=== PATIENT | female | born 1930 | race Caucasian/White ===

== ENCOUNTER → 2017-03-04 | Day surgery (SDC) | payer OTHER ==
[~2017-03-04] VITALS: Ht 160 cm; Wt 84.0 kg
[~2017-03-04] MED LIST: ACETAMINOPHEN/HYDROcodone 325 MG/5 MG TAB PO PRN; ASPI81TA11 PO; CALC1WAF2 PO; CHLORHEXIDINE GLUCONATE 2 % 1 PACK (2 CLOTHS) TOPICAL PRN; CHLORHEXIDINE GLUCONATE 4% SOLN 120 ML BTL TOPICAL SCH; ENAL10TA PO; FERR200T PO; INSULIN HUMAN REGULAR 1,000 UNITS/10 ML VIAL SQ PRN; KLOR25TA2 PO; LACTATED RINGER'S 1000 ML IV PRN; METOPROLOL TARTRATE 25 MG TAB PO PRN; MULT1TAB46 PO; OMEP40CA2 PO; ONDANSETRON HCL 4 MG/2 ML VIAL IV PRN; OXYBXL10 PO; POVIDONE IODINE 5% (ANTISEPSIS KIT) 4 APPLICATIONS EACH NARE PRN; SERT-132 PO; SIMV10TA PO; SODIUM CHLORID 0.9% 500 ML IV PRN; SODIUM CHLORIDE 0.9% FLUSH 5 ML FLUSH IVF PRN; SODIUM CHLORIDE 0.9% FLUSH 5 ML FLUSH IVF SCH; TRAM50TA PO; VERA180C PO; [UNRECOGNIZED DRUG - CODE] PO; ceFAZolin 2 GM PREMIX 50 ML IV SCH; traMADol HCL 50 MG TAB PO PRN
--- NOTE | 2017-03-04 08:39 | HHI.DS ---
Discharge Summary Admission Date Discharge Date: Mar 04, 2017 Admitting Diagnosis Trigger thumb right Diagnosis: (1) Trigger finger of right thumb ICD Codes: M65.311 - Trigger thumb, right thumb Procedures release trigger thumb right Brief History This is a 86 year old female patient Hospital Course same day surgery Pt Condition on Discharge: Good Discharge Disposition: Discharge Home Discharge Instructions Diet Instructions: As Tolerated, No Restrictions, Heart Healthy Diet Activities You Can Perform: See Additionl Instruction Activities to Avoid: Driving for 24 hrs, Strenuous Activity Baltazar Ureña MD Mar 04, 2017 08:39
[2017-03-04 09:30] VITALS: BP 127/59; PULSE 61; RESP 16; TEMP 98; O2SAT 97
--- NOTE | 2017-03-06 20:51 | MP ---
cc: NEELAM UREÑA DATE OF SURGERY 03/04/2017 PREOPERATIVE DIAGNOSIS Trigger thumb right. POSTOPERATIVE DIAGNOSIS Trigger thumb right. OPERATIVE PROCEDURE Release trigger thumb right. SURGEON Dr. Ureña. ANESTHESIA IV block. TECHNIQUE After induction of IV block anesthesia the right upper extremity thoroughly prepped with Hibiclens and draped in routine fashion. A V-shaped incision was made across the flexion crease of the thumb with the base of the flap radial. Incision deepened through subcutaneous tissue carefully and the Janet ligaments are sectioned under direct vision. Deep dissection carried out with a blunt hemostat exposing the flexor tendon sheath which was then incised thereby releasing the flexor pollicis longus which had a rough surface underneath but did not need any intervention. The thumb was put through range of motion and there was no obstruction. The wound was irrigated with saline solution followed by closure of the skin and subcutaneous tissue in a single layer of interrupted 3-0 nylon sutures. Dressing applied with Xeroform, 4x4s, Carmen and Carlos bandage. The patient transferred to the recovery room in satisfactory condition after release of tourniquet. The patient tolerated the procedure well. TRANSFUSION None. COMPLICATIONS None. POSTOPERATIVE CONDITION Satisfactory. PROGNOSIS Good. MD EDIS Walker/NNEKA /8:40 AM /8:41 PM
== END | disposition home or self-care (01) ==
LOC: PHSDC 06:13
PROVIDERS: ATTEND Orthopaedic Surgery
DX: M65.311 Trigger thumb, right thumb (principal); I10 Essential (primary) hypertension; E78.5 Hyperlipidemia, unspecified; D64.9 Anemia, unspecified; K44.9 Diaphragmatic hernia without obstruction or gangrene; Z85.820 Personal history of malignant melanoma of skin; Z79.82 Long term (current) use of aspirin; Z79.899 Other long term (current) drug therapy
CPT/HCPCS: 01810; 26055; J0690; J7120

== ENCOUNTER 2017-05-06 21:10 | Emergency (ER) | payer OTHER ==
[~2017-05-06] VITALS: Ht 160 cm; Wt 85.0 kg
[~2017-05-06 21:10] MED LIST changes: -ACETAMINOPHEN/HYDROcodone 325 MG/5 MG TAB PO PRN; -ASPI81TA11 PO; +ASPI81TA23 PO; -CHLORHEXIDINE GLUCONATE 2 % 1 PACK (2 CLOTHS) TOPICAL PRN; -CHLORHEXIDINE GLUCONATE 4% SOLN 120 ML BTL TOPICAL SCH; -FERR200T PO; -INSULIN HUMAN REGULAR 1,000 UNITS/10 ML VIAL SQ PRN; -LACTATED RINGER'S 1000 ML IV PRN; -METOPROLOL TARTRATE 25 MG TAB PO PRN; -ONDANSETRON HCL 4 MG/2 ML VIAL IV PRN; -POVIDONE IODINE 5% (ANTISEPSIS KIT) 4 APPLICATIONS EACH NARE PRN; -SODIUM CHLORID 0.9% 500 ML IV PRN; -SODIUM CHLORIDE 0.9% FLUSH 5 ML FLUSH IVF PRN; -SODIUM CHLORIDE 0.9% FLUSH 5 ML FLUSH IVF SCH; -ceFAZolin 2 GM PREMIX 50 ML IV SCH; -traMADol HCL 50 MG TAB PO PRN
[2017-05-06 21:11] VITALS: BP 154/69; PULSE 86; RESP 15; TEMP 98.4; O2SAT 97
--- NOTE | 2017-05-06 22:40 | PD ---
HPI Chief Complaint: Medical Clearance Time Seen by Provider: 22:10 Travel History International Travel<30 days: No Contact w/Intl Traveler<30days: No Traveled to known affect area: No History of Present Illness HPI 86 year-old woman status post left breast biopsy at [place], on Tuesday 4 days ago, who presents with discoloration in the left breast. She called the on -call radiologist who recommended she come in for evaluation. No fevers or chills. No other complaints. History Past Medical History Medical History: Denies Significant Hx Influenza Vaccination: No Dilation and Curettage (D&C): Yes Social History Alcohol Use: No Tobacco Use: No Allergies-Medications (Allergen,Severity, Reaction): Coded Allergies: morphine (Verified Allergy, Severe, Sedation, 05/06/17) propoxyphene (Verified Allergy, Severe, ANAPHYLAXIS, 05/06/17) alprazolam (Verified Allergy, Intermediate, MOOD EFFECT, 05/06/17) clonazepam (Verified Allergy, Intermediate, MOOD EFFECT, 05/06/17) clorazepate dipotassium (Verified Allergy, Intermediate, MOOD EFFECT, ) diazepam (Verified Allergy, Intermediate, MOOD EFFECT, 05/06/17) lorazepam (Verified Allergy, Intermediate, MOOD EFFECT, 05/06/17) midazolam (Verified Allergy, Intermediate, MOOD EFFECT, 05/06/17) oxazepam (Verified Allergy, Intermediate, MOOD EFFECT, 05/06/17) temazepam (Verified Allergy, Intermediate, MOOD EFFECT, 05/06/17) acetaminophen (Verified Allergy, Mild, 05/06/17) brompheniramine (Verified Allergy, Mild, 05/06/17) phenylpropanolamine (Verified Allergy, Mild, 05/06/17) methadone (Verified Adverse Reaction, Severe, MUSCLE LEIGH, 05/06/17) Uncoded Allergies: OPIOIDS (Allergy, Intermediate, MOOD EFFECT, 09/17/14) Reported Meds & Prescriptions Reported Meds & Active Scripts Active Tramadol (Tramadol HCl) 50 Mg Tab 50 Mg PO Q6H PRN 5 Days Reported Tramadol (Tramadol HCl) 50 Mg Tab 50 Mg PO BID PRN Calcium Citrate/Mag... 250-125-200 mg-mg-Unit (Calcium-Magnesium W/ Vitamin D) 1 Waf Waf PO DAILY Enalapril (Enalapril Maleate) 10 Mg Tab 10 Mg PO DAILY Ginseng (Panax Ginseng Root Extract) 100 Mg Capsule PO DAILY Multi Vitamin Daily (Multiple Vitamin) 1 Tab Tab PO DAILY Omeprazole 40 Mg Cap 40 Mg PO DAILY Ditropan XL 24 HR (Oxybutynin Chloride) 10 Mg Tab 10 Mg PO DAILY Klor-Con EF (Potassium Bicarbonate) 25 Meq Tab 25 Meq PO DAILY Sertraline (Sertraline HCl) 50 Mg Tab 50 Mg PO DAILY Simvastatin 10 Mg Tab 10 Mg PO DAILY Verapamil HCl ER (Verapamil HCl) 180 Mg Cap PO DAILY Aspirin EC (Aspirin) 81 Mg Tabdr 81 Mg PO DAILY Review of Systems Except as stated in HPI: all other systems reviewed are Neg Physical Exam Narrative Gen.: Well-appearing 86 year-old woman, no acute distress Breast: Normal symmetric appearance of both breasts. On the right breast in the 10 o'clock position there is ecchymosis and bruising in the bandage. Is a little bit tenderness there. Is no erythema redness. Is no visible swelling. Is no purulent drainage. Data Data Last Documented VS Vital Signs Date Time Temp Pulse Resp B/P (MAP) Pulse Ox O2 Delivery O2 Flow Rate FiO2 05/06/17 21:11 98.4 86 15 154/69 (97) 97 Room Air MDM Medical Decision Making Medical Screen Exam Complete: Yes Emergency Medical Condition: Yes Differential Diagnosis Infection, bruising, other Narrative Course Medical decision making 86 year-old woman with discoloration left breast following biopsy. This is just ecchymosis or bruising. Is no evidence of infection. Biopsy was positive. She's been referred to a breast surgeon. Diagnosis Primary Impression: Bruise of breast Additional Instructions: Follow-up with Dr. Pool. Return to the emergency department for any new or worsening symptoms. Disposition: 01 DISCHARGE HOME Condition: Stable Gomez Lopez MD May 06, 2017 22:40
== END 2017-05-06 23:33 | disposition home or self-care (01) ==
LOC: NEPE 21:10
DX: S20.02XA Contusion of left breast, initial encounter (principal); N64.89 Other specified disorders of breast; Y84.8 Other medical procedures as the cause of abnormal reaction of the patient, or of later complication, without mention of misadventure at the time of the procedure
CPT/HCPCS: 99283

== ENCOUNTER → 2017-06-16 | Day surgery (SDC) | payer OTHER ==
[~2017-06-16] MED LIST changes: +BUPIVACAINE/EPINEPHRINE 0.5% PF 30 ML VIAL ONE; +ISOSULFAN BLUE 50 MG/5 ML VIAL SQ ONE; +LIDOCAINE 1.5%/EPINEPHrine 1:200,000 PF SOLN 30 ML AMP ONE; +ONDANSETRON HCL 4 MG/2 ML VIAL IV PUSH ONE; +PROPOFOL 200 MG/20 ML AMP IV ONE; +ceFAZolin INJ 1,000 MG VIAL ONE
--- NOTE | 2017-06-16 16:26 | TN ---
cc: JOSE CROCKETT M.D., JOSEPH D. M.D. DATE OF SURGERY: 06/16/2017 PREOPERATIVE DIAGNOSIS Left-sided breast cancer left upper outer quadrant. POSTOPERATIVE DIAGNOSIS Left-sided breast cancer left upper outer quadrant. PROCEDURE 1. Needle-localized excisional quadrantectomy left breast upper outer quadrant. 2. Injection of Lymphazurin blue dye for lymphatic mapping identifying sentinel nodes x2. 3. Ultrasound evaluation of intraoperative radiation device to assure adequate tissue depth 4. Intraoperative radiation 5. Linden node identification of two sentinel nodes. ANESTHESIA General SURGEON Dr. Oneil. AIRCRAFT PNEUDRAULICS REPAIRER: Merry Rae, advanced registered nurse practitioner The PRINT ROOM WORKER was present from beginning to the end of the case assisting in all portions of the procedure. It was necessary to have this individual in the room to assist in the above surgical procedure. The surgical procedure was assisted by the PRINT ROOM WORKER. The PRINT ROOM WORKER presence was necessary throughout the case for appropriate retraction, dissection, visualization, and resection of the important anatomical structures during the surgical procedure. The PRINT ROOM WORKER was assisting throughout the entirety of the operation. The skill set of the PRINT ROOM WORKER is medically and surgically necessary to safely complete the surgical procedure. During the surgical case, the operating room surgical scrub technician was working instrument table and passing instruments to the attending surgeon and PRINT ROOM WORKER. The PRINT ROOM WORKER was directly assisting the operating surgeon and involved in the technical aspects of the surgical case. RADIATION THERAPIST: Dr. Bucky Crockett INDICATIONS This is a pleasant 87-year-old female who was found to have a left-sided breast cancer. She is an excellent candidate for intraoperative radiation therapy. Plans were made for above. PROCEDURE The patient and placed in the position after placing her under anesthesia, time-out was done we inject Lymphazurin blue dye at the needle track isaias that is in the area of the left breast in the upper outer quadrant, it is coursing somewhat medial, from medial to lateral and a slightly anterior-posterior direction and somewhat parallel in the horizontal plane. After the lymphatic mapping with Lymphazurin blue dye, we do see a hot spot in the axillary region from the lymphoscintigraphy. We then prepped and draped with Betadine. A curvilinear incision made the axillary region where two hot spots were identified, ex vivo count of the first lymph node, that does not have any blue in it with an ex vivo count of 1,184 and a larger sentinel node that is deep and somewhat posterior with an ex vivo count of eight. No other lymphadenopathy is noted. No other hot spots were noted. We then closed the deep layer of 3-0 Vicryl. Skin is closed with a 4-0 Vicryl. We then direct our attention to left breast where the needle track isaias. The making elliptical incision overlying the needle track isaias as there is some skin necrosis from a previous radiologic biopsy. We dissected circumferentially around the guidewire essentially doing a quadrantectomy in the upper outer quadrant. The specimen is then marked superiorly with short stitch and a long stitch placed laterally. This is sent down to radiology Dr. Lowry states the area in question appears to be removed. No other gross abnormalities or masses are appreciated. The medial edge of the a lumpectomy of quadrantectomy cavity is then reapproximated. We then sized the radiation device. We elect the three half size, as this fits snugly in the placed after pursestring. We checked our tissue margins with intraoperative ultrasound. The superior margin, medial margin, lateral margin, inferior marginal, all of which are in adequate tissue depth. After testing with intraoperative ultrasound the radiation device is removed, connected to the radiation source and draped and then gently placed into the quadrantectomy site. Pursestring sutures secured down. We reevaluate the tissue depth circumferentially with the ultrasound device superior margin and inferior margin lateral margin of medial margin all have adequate tissue depth of greater than a centimeter. We then placed a wet lap around the skin at the entrance site and placed the led drape to make a cone. Dr. Crockett preformed 17 minutes of intraoperative radiation therapy. After the radiation is complete the device is removed and she irrigated. There is excellent hemostasis. We then close the skin with a 4-0 Vicryl. Steri-Strips applied. Sterile bandage applied, and post the wound, the breast and the axillary region. The patient tolerated the procedure well. Had no immediate postoperative complications. MD DAMON Aquino/patricia /3:40 PM /4:10 PM ANNEL
== END | disposition home or self-care (01) ==
LOC: ESDC 09:17
PROVIDERS: ATTEND Surgery
DX: C50.412 Malignant neoplasm of upper-outer quadrant of left female breast (principal)
CPT/HCPCS: 00400; 01610; 19125; 38525; 38792; 77290; 77300; 77334; 77370; 77424; 88307; J0690; J2405; J3010; Q9968; 77469

== ENCOUNTER → 2017-06-28 | Day surgery (SDC) | payer OTHER ==
[~2017-06-28] MED LIST changes: +ACETAMINOPHEN 1000 MG/100 ML 100 ML IV ONE; -ISOSULFAN BLUE 50 MG/5 ML VIAL SQ ONE; +LACTATED RINGER'S 1000 ML INJ 1,000 ML ONE; +LIDOCAINE 1%/EPINEPHrine 1:100,000 SOLN 30 ML VIAL ONE; -LIDOCAINE 1.5%/EPINEPHrine 1:200,000 PF SOLN 30 ML AMP ONE; -ONDANSETRON HCL 4 MG/2 ML VIAL IV PUSH ONE
--- NOTE | 2017-06-28 13:33 | TN ---
cc: CHRIS ONEIL,JOSE Colon M.D. DATE OF SURGERY: 06/28/2017 PREOPERATIVE DIAGNOSIS Breast cancer left breast with unclear margin lateral margin left breast. Left axillary seroma. POSTOPERATIVE DIAGNOSIS Breast cancer left breast with unclear margin lateral margin left breast. Aspiration left axillary seroma. PROCEDURE Re-excision of lateral margin from previous lumpectomy. ANESTHESIA TIVA SURGEON: Chris Oneil MD. INDICATIONS This is a pleasant female who had left-sided breast cancer. She underwent breast conservation with the intraoperative radiation therapy. Unfortunately a lateral margin had a little DCIS of the edge for this reason re-excision was planned. PROCEDURE The patient was taken to the operating room placed on operating room table after anesthesia her left breast is prepped with Betadine. Axillary region as well. After prepping and draping and time-out done. We attempted to aspirate the seroma in the left axillary region, but it is too thick, nothing comes out. It is not too big in size, I suspect it will resolve. We then directed our attention to the previous lumpectomy anesthetizing the preservative-free anesthetic and make an incision reopening the previous incision. Dissected down to the biopsy cavity which is evacuated of seroma and a hematoma. The lateral margin of the previous biopsy cavity is then grasped with the Allis clamps. We resected the entirety from the superior aspect of the lateral margin, to the inferior and posterior anterior of the lateral margin. This is removed marked accordingly with the short stitch placed superior and a long stitch placed lateral to this lateral specimen margin from the previous lumpectomy done. This was sent down for pathological analysis. We then irrigate, hemostasis assured. We then simply close the skin with 4-0 Vicryl. Steri-Strips applied. Sterile bandage applied. The patient did well and no immediate postop complications. Chris Oneil MD JLEONARD/patricia /12:45 PM /12:53 PM
== END | disposition home or self-care (01) ==
LOC: ESDC 08:57
PROVIDERS: ATTEND Surgery
DX: D05.12 Intraductal carcinoma in situ of left breast (principal); L76.34 Postprocedural seroma of skin and subcutaneous tissue following other procedure
CPT/HCPCS: 00400; 10140; 19301; 88307; J0131; J0690; J7120; 88305

== ENCOUNTER 2017-11-16 19:11 | Emergency (ER) | payer OTHER ==
[~2017-11-16 19:11] MED LIST changes: -ACETAMINOPHEN 1000 MG/100 ML 100 ML IV ONE; -BUPIVACAINE/EPINEPHRINE 0.5% PF 30 ML VIAL ONE; -LACTATED RINGER'S 1000 ML INJ 1,000 ML ONE; -LIDOCAINE 1%/EPINEPHrine 1:100,000 SOLN 30 ML VIAL ONE; -PROPOFOL 200 MG/20 ML AMP IV ONE; -ceFAZolin INJ 1,000 MG VIAL ONE
[2017-11-16 19:20] VITALS: BP 122/60; PULSE 80; RESP 20; TEMP 98.3; O2SAT 93
[2017-11-16] MEDS ORDERED: TETANUS/DIPHTHERIA TOXOID ADULT 0.5 ML VIAL IM ONE (19:45)
[2017-11-16] MEDS ORDERED: ANAS1TAB PO (19:48)
[2017-11-16] MEDS ORDERED: FURO40TA PO (19:49)
--- NOTE | 2017-11-16 19:50 | PD ---
HPI Chief Complaint: Laceration/Skin Injury Time Seen by Provider: 19:32 Travel History International Travel<30 days: No Contact w/Intl Traveler<30days: No Traveled to known affect area: No History of Present Illness HPI 87-year-old female presents emergency department for evaluation of a wound to the top of her right foot. Patient states that she was using a kitchen alexa when she accidentally dropped them landing on her foot. Says that she is here today because she is concerned about the bleeding. Says that she has mild pain directly over the area but denies any significant pain elsewhere. Says her pain is worse with palpation. She does not believe she broke her foot. Says she is on chemo medications for her breast cancer thinks this may be the reason for her excessive bleeding. Denies use of blood thinners. She denies any numbness tingling of the foot. Patient was able to ambulate in the emergency department today. She has no other complaints today. 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 ) Cardiovascular Problems: Yes (Murmur) High Cholesterol: Yes Diabetes: No Diminished Hearing: Yes (RADHA HEARING AIDES) Endocrine: No Gastrointestinal Disorders: No GERD: Yes Genitourinary: No Hepatitis: No Hiatal Hernia: Yes Hypertension: Yes Immune Disorder: No Musculoskeletal: No Neurologic: No Psychiatric: No Reproductive: No Respiratory: No Renal Failure: Yes (STAGE 3 KIDNEY DISEASE ) Thyroid Disease: No Tetanus Vaccination: Unknown Influenza Vaccination: Yes Dilation and Curettage (D&C): Yes Past Surgical History Abdominal Surgery: Yes (COLON SX, PARTIAL COLECTOMY) AICD: No Eye Surgery: Yes (BILATERAL CATARACTS ) Genitourinary Surgery: Yes (urethral sling) Gynecologic Surgery: Yes (Left partial mastectomy with lumpectomy ) Joint Replacement: No Oral Surgery: Yes (T AND A) Pacemaker: No Tonsillectomy: Yes Other Surgery: Yes (hemorrhoidectomy, carotid endarterectomy, LEFT BREAST BIOPSY, BASAL CELL SX) Social History Alcohol Use: No Tobacco Use: No Substance Use: No Allergies-Medications (Allergen,Severity, Reaction): Coded Allergies: morphine (Verified Allergy, Severe, Sedation, 11/16/17) propoxyphene (Verified Allergy, Severe, ANAPHYLAXIS, 11/16/17) alprazolam (Verified Allergy, Intermediate, MOOD EFFECT, 11/16/17) clonazepam (Verified Allergy, Intermediate, MOOD EFFECT, 11/16/17) clorazepate dipotassium (Verified Allergy, Intermediate, MOOD EFFECT, ) diazepam (Verified Allergy, Intermediate, MOOD EFFECT, 11/16/17) lorazepam (Verified Allergy, Intermediate, MOOD EFFECT, 11/16/17) midazolam (Verified Allergy, Intermediate, MOOD EFFECT, 11/16/17) oxazepam (Verified Allergy, Intermediate, MOOD EFFECT, 11/16/17) temazepam (Verified Allergy, Intermediate, MOOD EFFECT, 11/16/17) acetaminophen (Verified Allergy, Mild, 11/16/17) brompheniramine (Verified Allergy, Mild, 11/16/17) phenylpropanolamine (Verified Allergy, Mild, 11/16/17) methadone (Verified Adverse Reaction, Severe, MUSCLE LEIGH, 11/16/17) Uncoded Allergies: OPIOIDS (Allergy, Intermediate, MOOD EFFECT, 09/17/14) Reported Meds & Prescriptions Reported Meds & Active Scripts Active Reported Calcium 600 + Vit D Tablet (Calcium Carbonate/Vitamin D3) 250 Mg Calcium (600 Mg )-125 Unit Tablet 1 Tab PO DAILY Probiotic (Lactobacillus Acidophilus) 10 Billion Cell Cap 1 Cap PO DAILY Potassium Chloride ER (Potassium Chloride) 10 Meq Cap 10 Meq PO DAILY Furosemide 40 Mg Tab 40 Mg PO DAILY Enalapril (Enalapril Maleate) 10 Mg Tab 10 Mg PO DAILY Multi Vitamin Daily (Multiple Vitamin) 1 Tab Tab PO DAILY Omeprazole 40 Mg Cap 20 Mg PO DAILY Ditropan XL 24 HR (Oxybutynin Chloride) 10 Mg Tab 5 Mg PO BID Simvastatin 10 Mg Tab 10 Mg PO DAILY Verapamil HCl ER (Verapamil HCl) 180 Mg Cap PO DAILY Aspirin EC (Aspirin) 81 Mg Tabdr 81 Mg PO DAILY Review of Systems Except as stated in HPI: all other systems reviewed are Neg Physical Exam Narrative GENERAL: Well-developed, well-nourished in no apparent distress. SKIN: Focused skin assessment warm/dry. HEAD: Atraumatic. Normocephalic. EYES: Pupils equal and round. No scleral icterus. No injection or drainage. ENT: No nasal bleeding or discharge. Mucous membranes pink and moist. NECK: Trachea midline. No JVD. CARDIOVASCULAR: Regular rate and rhythm. No murmur appreciated. RESPIRATORY: No accessory muscle use. Clear to auscultation. Breath sounds equal bilaterally. GASTROINTESTINAL: Abdomen soft, non-tender, nondistended. Hepatic and splenic margins not palpable. MUSCULOSKELETAL: No obvious deformities. No clubbing. No cyanosis. No edema. NEUROLOGICAL: Awake and alert. No obvious cranial nerve deficits. Motor grossly within normal limits. Normal speech. PSYCHIATRIC: Appropriate mood and affect; insight and judgment normal. Data Data Last Documented VS Vital Signs Date Time Temp Pulse Resp B/P (MAP) Pulse Ox O2 Delivery O2 Flow Rate FiO2 11/16/17 19:20 98.3 80 20 122/60 (80) 93 Orders Orders Tetanus/Diphtheria Tox Adult (Tetanus/Di (11/16/17 19:45) Ed Discharge Order (11/16/17 19:58) MDM Medical Decision Making Medical Screen Exam Complete: Yes Emergency Medical Condition: Yes Differential Diagnosis Right foot laceration, avulsion, abrasion Narrative Course 87-year-old female presents emergency department for evaluation of a wound to the right dorsal aspect of the foot after dropping kitchen alexa on her foot just prior to arrival. Vital signs are stable. Upon evaluation of the foot, she is tender directly over the laceration however , there is no active bleeding present. There is no tenderness to palpation to the lateral aspects of the metatarsals. Neurovascularly intact. Cleanse the site and explored for depth. This is a very superficial laceration not requiring repair. Wound care administered. Tetanus administered. Patient will be discharged and advised follow-up with a primary care physician. Advised on wound care. Diagnosis Primary Impression: Laceration of foot Qualified Codes: S91.311A - Laceration without foreign body, right foot, initial encounter Referrals: Primary Care Physician Additional Instructions: Follow up with your primary care physician within 2-3 days. Keep area clean and dry for 24 hours. After 24 hrs, you may bathe as normal but dry the area thoroughly. You may use [id number] triple antibiotic ointments for your injury daily. Change top dressings daily. You may leave the yellow gauze on for up to 5-7 days. You may allow this to fall off on its own. If bleeding starts, apply pressure and elevate the area. If you developed increased redness, swelling, or pain return to the emergency department as this could be a sign of infection. Disposition: 01 DISCHARGE HOME Condition: Stable Shanique Padilla November 16, 2017 19:50
[2017-11-16] MEDS ORDERED: POTA10CA PO (19:53)
[2017-11-16] MEDS ORDERED: LACTCAP8 PO (19:55)
[2017-11-16] MEDS ORDERED: CALC600T64 PO (19:56)
== END 2017-11-16 20:27 | disposition home or self-care (01) ==
LOC: PHEFT 19:11
DX: S91.311A Laceration without foreign body, right foot, initial encounter (principal); C50.919 Malignant neoplasm of unspecified site of unspecified female breast; D64.9 Anemia, unspecified; I10 Essential (primary) hypertension; K21.9 Gastro-esophageal reflux disease without esophagitis; F32.9 Major depressive disorder, single episode, unspecified; E78.00 Pure hypercholesterolemia, unspecified; Z23 Encounter for immunization; W27.2XXA Contact with scissors, initial encounter
CPT/HCPCS: 90471; 90714

== ENCOUNTER 2018-02-12 17:47 | Inpatient (IN) ==
[2018-02-12] MEDS ORDERED: Morphine Inj 4 MG/ML Vial IV.PUSH ONE (18:02)
--- NOTE | 2018-02-12 18:27 | XR ---
EXAM DATE: 02/12/2018 6:24 PM EDT AGE/SEX: 87 years / Female INDICATIONS: Evaluate for pneumonia, pneumothorax, or communicable disease. Pre op hip surgery post fall. CLINICAL DATA: This is the patient's initial encounter. Patient reports that signs and symptoms have been present for 1 day and indicates a pain score of 0/10. MEDICAL/SURGICAL HISTORY: None. None. COMPARISON: [facility], CHEST SINGLE AP, 09/17/2014. . FINDINGS: A single AP view of the chest demonstrates the lungs to be symmetrically aerated without evidence of mass, infiltrate or effusion. The cardiomediastinal contours are unremarkable. Osseous structures a re intact. CONCLUSION: No acute cardiopulmonary disease demonstrated. Electronically signed by: Pa Venegas MD 02/12/2018 6:26 PM EDT
--- NOTE | 2018-02-12 18:35 | XR ---
EXAM DATE: 02/12/2018 6:23 PM EDT AGE/SEX: 87 years / Female INDICATIONS: Left hip pain after fall. CLINICAL DATA: This is the patient's initial encounter. Patient reports that signs and symptoms have been present for 1 day and indicates a pain score of 10/10. MEDICAL/SURGICAL HISTORY: None. None. COMPARISON: No prior exams available for comparison. FINDINGS: There is an acute intertrochanteric fracture of the left femur with medial angulation deformity. Ther e is a 2.0 x 4.6 cm comminuted fracture fragment off of the lesser trochanter with medial displacemen t. Femoral head intact. No subluxation. CONCLUSION: Comminuted intertrochanteric fracture of the left femur. Electronically signed by: Pa Venegas MD 02/12/2018 6:33 PM EDT
[2018-02-12 18:51] LABS: Baso # (Auto) 0.1 th/mm3 (0.0-0.2); Baso % (Auto) 0.6 % (0.0-2.0); Eos # (Auto) 0.3 th/mm3 (0.0-0.4); Eos % (Auto) 2.8 % (0.0-4.0); Hematocrit 38.8 % (35.0-46.0); Hemoglobin 13.6 gm/dL (11.6-15.3); Lymph # (Auto) 2.6 th/mm3 (1.0-4.8); Lymph % (Auto) 26.3 % (9.0-44.0); Mean Corpuscular HGB Conc 35.2 % (32.0-36.0); Mean Corpuscular Hemoglobin 30.4 pg (27.0-34.0); Mean Corpuscular Volume 86.4 fL (80.0-100.0); Neut # (Auto) 5.9 th/mm3 (1.8-7.7); Neut % (Auto) 60.3 % (16.0-70.0); Platelet Count 295 th/mm3 (150-450); Red Blood Count 4.49 mil/mm3 (4.00-5.30); White Blood Count 9.8 th/mm3 (4.0-11.0)
[2018-02-12 19:00] LABS: Activated Partial Thrombo Time 24.5 sec (24.3-30.1); Prothrombin Time 9.9 sec (9.8-11.6)
[2018-02-12] MEDS ORDERED: Morphine Sulfate Inj 2 MG/ML Vial IV.PUSH PRN (19:01)
[2018-02-12 19:12] LABS: Alanine Aminotransferase 13 U/L (10-53); Alkaline Phosphatase 103 U/L (45-117); Total Protein 7.3 g/dL (6.4-8.2)
--- NOTE | 2018-02-12 19:16 | P.HPIM ---
History of Present Illness Primary Care Physician: Do Arjun Crockett History of Present Illness: Mrs. Li is an 87-year-old female who is admitted secondary to left hip fracture. She reports that she was walking around the house and tripped over something and fell. At baseline she has a previous fall 6 months ago. She has a past history of fall with right wrist fracture several years ago. Her baseline functioning is relatively stable ambulation, functional enough to have gardening as a hobby. When seen her pain is controlled. Other medical conditions are hypertension, gastroesophageal reflux disease, and a past history of breast cancer. She recently underwent a colonoscopy 4 days ago. She did not have any complications with anesthesia during her colonoscopy. Dr. Ureña (orthopedic surgeon) did surgery on her right wrist fracture and she requests him as an orthopedic surgeon consult. No other complaints at this time. Inpatient Certification: I certify that the inpatient services were ordered in accordance with Medicare regulations governing the order. This includes certification that hospital inpatient services are reasonable and necessary and in the case of services not specified as inpatient-only under 42 CFR 419.22(n), that they are appropriately provided as inpatient services in accordance to with the 2-midnight benchmark under 43 CFR 412.3(e) Estimated Total Length of Stay (Days): 3 Plans for Post Hospital Care: SNF Review of Systems Constitutional: Denies fever(s), Denies malaise, Denies night sweats, Denies weakness Eyes: Denies blind spots, Denies blurry vision, Denies change in vision Ears, Nose, Mouth, and Throat: Denies abnormal hearing, Denies bleeding gums, Denies change in voice Cardiovascular: Denies chest pain, Denies chest pain at rest, Denies chest pain with activity Respiratory: Denies cough, Denies shortness of breath, Denies wheezing Gastrointestinal: Denies abdominal pain, Denies black, tarry stools, Denies bloating, Denies bright, red blood in stools Musculoskeletal: Reports abnormal walking, Reports joint pain, Reports limited joint movement, Denies back pain, Denies body aches Skin/Breast: Denies rash, Denies skin pain, Denies skin ulcer Neurologic: Denies abnormal hearing, Denies abnormal movements, Denies abnormal speech PMFSH - History History Provided By: Patient, Clinical Specialist Vascular / EMT - Medical History Medical History: Medical History (Last Updated 02/12/18 @ 18:18 by Jeanie Hameed) CKD (chronic kidney disease), stage III Carpal tunnel syndrome of right wrist Cataract - Surgical History Surgical History: Surgical History (Last Updated 02/12/18 @ 18:18 by Jeanie Hameed) History of colon surgery History of colonoscopy History of hemorrhoidectomy History of lumpectomy History of partial colectomy History of partial mastectomy of left breast History of right-sided carotid endarterectomy - Family History Family History: Family History (Last Updated 02/12/18 @ 19:06 by Ty Lucas MD) Daughter Breast cancer - Tobacco History Second Hand Smoke Exposure: No Smoking Status: Former smoker - Alcohol History How Often Do You Have a Drink Containing Alcohol: Never - Substance Use History Substance History: No History of Abuse - Travel History Recent Travel in the [place] Within the Last 8 Weeks: No Recent Travel Out of the Country Within the Last 8 Weeks: No - Immunization History Tetanus Immunization: <5 Years Hx Influenza Vaccine This Season: Yes Medications and Allergies Active Medications: Active Medications Sodium Chloride (1/2 Normal Saline Inj) 1,000 mls @ 75 mls/hr IV.CONT .[id number] CARIDAD Morphine Sulfate (Morphine Inj) 2 mg IV.PUSH Q4H PRN PRN Reason: Pain 3 to 6 Morphine Sulfate (Morphine Inj) 4 mg IV.PUSH Q4H PRN PRN Reason: Pain 7 to 10 Ondansetron HCl (Zofran Inj) 4 mg IV.PUSH Q6H PRN PRN Reason: NAUSEA OR VOMITING Sodium Chloride (Ns Flush) 2 ml IV.FLUSH UNSCH PRN PRN Reason: FLUSH AFTER USING IV ACCESS Allergies Allergy/AdvReac Type Severity Reaction Status Date / Time morphine Allergy Severe Sedation Verified 11/16/17 19:22 propoxyphene Allergy Severe ANAPHYLAXIS Verified 11/16/17 19:22 alprazolam Allergy Intermediate MOOD EFFECT Verified 11/16/17 19:22 clonazepam Allergy Intermediate MOOD EFFECT Verified 11/16/17 19:22 clorazepate dipotassium Allergy Intermediate MOOD EFFECT Verified 11/16/17 19:22 diazepam Allergy Intermediate MOOD EFFECT Verified 11/16/17 19:22 lorazepam Allergy Intermediate MOOD EFFECT Verified 11/16/17 19:22 midazolam Allergy Intermediate MOOD EFFECT Verified 11/16/17 19:22 oxazepam Allergy Intermediate MOOD EFFECT Verified 11/16/17 19:22 temazepam Allergy Intermediate MOOD EFFECT Verified 11/16/17 19:22 acetaminophen Allergy Mild Verified 11/16/17 19:22 brompheniramine Allergy Mild Verified 11/16/17 19:22 phenylpropanolamine Allergy Mild Verified 11/16/17 19:22 methadone AdvReac Severe MUSCLE Verified 11/16/17 19:22 LEIGH OPIOIDS Allergy Intermediate MOOD EFFECT Uncoded 09/17/14 12:23 Home Medications Medication Instructions Recorded Confirmed Type aspirin 81 mg PO DAILY 02/12/18 02/12/18 History calcium carbonate-vitamin D3 1 tab PO BID 02/12/18 02/12/18 History [Calcium 600 + D(3)] enalapril maleate 10 mg PO DAILY 02/12/18 02/12/18 History furosemide [Lasix] 40 mg PO DAILY 02/12/18 02/12/18 History qggwcivs-fmj-VL-lycopen-lutein 1 tab PO DAILY 02/12/18 02/12/18 History [Centrum Silver] omeprazole 40 mg PO DAILY 02/12/18 02/12/18 History potassium chloride 10 meq PO DAILY 02/12/18 02/12/18 History psyllium seed (sugar) [Metamucil 1 tbsp PO DIRECTED 02/12/18 02/12/18 History (sugar)] verapamil 180 mg PO DAILY 02/12/18 02/12/18 History Exam Vital signs: Vital Signs 02/12/18 18:00 02/12/18 18:10 02/12/18 18:22 Temperature 98.6 F 98.6 F Pulse Rate 73 73 73 Respiratory Rate 18 18 Blood Pressure 136/71 136/71 Pulse Oximetry 95 95 02/12/18 18:39 Temperature Pulse Rate Respiratory Rate Blood Pressure Pulse Oximetry 95 Intake & Output 02/12/18 02/12/18 02/13/18 06:59 18:59 06:59 Weight 82.554 kg Narrative: GENERAL: NAD, A&Ox3 HEAD: Normocephalic. NECK: Supple, trachea midline. No lymphadenopathy. EYES: No scleral icterus. No injection or drainage. CARDIOVASCULAR: Regular rate and rhythm without murmurs, gallops, or rubs. RESPIRATORY: Breath sounds equal bilaterally. No accessory muscle use. GASTROINTESTINAL: Abdomen soft, non-tender, nondistended. MUSCULOSKELETAL: No cyanosis, or edema. Limited range of motion at left hip due to pain. SKIN: Warm and dry. NEURO: No focal neurological deficits. Results - Labs CBC & Chem 7: 02/12/18 18:20 02/12/18 18:20 Labs: Short CBC 02/12/18 Range/Units 18:20 WBC 9.8 (4.0-11.0) th/mm3 Hgb 13.6 (11.6-15.3) gm/dL Hct 38.8 (35.0-46.0) % Plt Count 295 (150-450) th/mm3 - Imaging Impressions Chest X-Ray 02/12/18 18:01 CONCLUSION: No acute cardiopulmonary disease demonstrated. Hip X-Ray 02/12/18 18:01 CONCLUSION: Comminuted intertrochanteric fracture of the left femur. Caprini VTE Risk Assessment Caprini VTE Risk Assessment: Moderate/High Risk (score >= 2) Caprini Risk Assessment Model: Point Value = 1 Point Value = 2 Point Value = 3 Point Value = 5 Age 41-60 Minor surgery BMI > 25 kg/m2 Swollen legs Varicose veins or History of unexplained or recurrent spontaneous Oral contraceptives or hormone replacement Sepsis (< 1 month) Serious lung disease, including pneumonia (< 1 month) Abnormal pulmonary function Acute myocardial infarction Congestive heart failure (< 1 month) History of inflammatory bowel disease Medical patient at bed rest Age 61-74 Arthroscopic surgery Major open surgery (> 45 min) Laparoscopic surgery (> 45 min) Malignancy Confined to bed (> 72 hours) Immobilizing plaster cast Central venous access Age >= 75 History of VTE Family history of VTE Factor V Leiden Prothrombin [id number] Lupus anticoagulant Anticardiolipin antibodies Elevated serum homocysteine Heparin-induced thrombocytopenia Other congenital or acquired thrombophilia Stroke (< 1 month) Elective arthroplasty Hip, pelvis, or leg fracture Acute spinal cord injury (< 1 month) Prophylaxis Regimen: Total Risk Factor Score Risk Level Prophylaxis Regimen 0-1 Low Early ambulation 2 Moderate Order ONE of the following: *Sequential Compression Device (SCD) *Heparin 5000 units SQ BID 3-4 Higher Order ONE of the following medications: *Heparin 5000 units SQ TID *Enoxaparin/Lovenox 40 mg SQ daily (WT < 150 kg, CrCl > 30 mL/min) *Enoxaparin/Lovenox 30 mg SQ daily (WT < 150 kg, CrCl > 10-29 mL/min) *Enoxaparin/Lovenox 30 mg SQ BID (WT < 150 kg, CrCl > 30 mL/min) AND/OR *Sequential Compression Device (SCD) 5 or more Highest Order ONE of the following medications: *Heparin 5000 units SQ TID (Preferred with Epidurals) *Enoxaparin/Lovenox 40 mg SQ daily (WT < 150 kg, CrCl > 30 mL/min) *Enoxaparin/Lovenox 30 mg SQ daily (WT < 150 kg, CrCl > 10-29 mL/min) *Enoxaparin/Lovenox 30 mg SQ BID (WT < 150 kg, CrCl > 30 mL/min) AND *Sequential Compression Device (SCD) Assessment and Plan - Plan 87-year-old female admitted secondary to left hip fracture sustained in a fall EKG ordered for medical clearance, results pending. No history of cardiac or pulmonary disease. Left hip fracture Orthopedic surgeon consulted Continue as needed pain treatments Nothing by mouth after midnight Bedrest for now Plan for PT Hypertension Holding verapamil Continue enalapril Follow blood pressures Adjust treatments as needed Gastroesophageal reflux disease Continue omeprazole Hx of Breast Cancer Continue to follow as an outpatient DVT prophylaxis SCDs for now (preop)
[2018-02-12 19:17] LABS: Albumin 3.6 g/dL (3.4-5.0); Anion Gap 9 meq/L (5-15); Aspartate Aminotransferase 26 U/L (15-37); Blood Urea Nitrogen 22 mg/dL (7-18); Calcium 8.8 mg/dL (8.5-10.1); Carbon Dioxide 26.9 meq/L (21.0-32.0); Chloride 103 meq/L (98-107); Glomerular Filtration Rate 54 mL/min (>89); Glucose,Random 116 mg/dL (74-106); Sodium 139 meq/L (136-145)
[2018-02-12 19:22] LABS: Potassium 4.1 meq/L (3.5-5.1)
[2018-02-12] MEDS: Sodium Chloride 0.45 % Inj 1,000 ML IV.CONT SCH (19:40)
--- NOTE | 2018-02-12 20:15 | ED ---
HPI General Chief complaint: Fall Stated complaint: Fall Time Seen by Provider: 02/12/18 18:00 History of Present Illness HPI narrative: Patient 87-year-old female presents emergency department for evaluation of left hip pain after a slip and fall. Patient states he fell directly on the left side. Denies any wrist pain headache injury neck injury. She has seen Dr. Barnhart before for wrist injury in the past. Denies any chest pain shortness of breath abdominal pain nausea vomiting. Started just prior to arrival, left hip, currently pain is minimal but worsens with any movement. Related Data Home Medications Medication Instructions Recorded Confirmed aspirin 81 mg PO DAILY 02/12/18 02/12/18 calcium carbonate-vitamin D3 1 tab PO BID 02/12/18 02/12/18 [Calcium 600 + D(3)] enalapril maleate 10 mg PO DAILY 02/12/18 02/12/18 furosemide [Lasix] 40 mg PO DAILY 02/12/18 02/12/18 vruwuzeb-fkn-ZL-lycopen-lutein 1 tab PO DAILY 02/12/18 02/12/18 [Centrum Silver] omeprazole 40 mg PO DAILY 02/12/18 02/12/18 potassium chloride 10 meq PO DAILY 02/12/18 02/12/18 psyllium seed (sugar) [Metamucil 1 tbsp PO DIRECTED 02/12/18 02/12/18 (sugar)] verapamil 180 mg PO DAILY 02/12/18 02/12/18 Allergies Allergy/AdvReac Type Severity Reaction Status Date / Time morphine Allergy Severe Sedation Verified 11/16/17 19:22 propoxyphene Allergy Severe ANAPHYLAXIS Verified 11/16/17 19:22 alprazolam Allergy Intermediate MOOD EFFECT Verified 11/16/17 19:22 clonazepam Allergy Intermediate MOOD EFFECT Verified 11/16/17 19:22 clorazepate dipotassium Allergy Intermediate MOOD EFFECT Verified 11/16/17 19:22 diazepam Allergy Intermediate MOOD EFFECT Verified 11/16/17 19:22 lorazepam Allergy Intermediate MOOD EFFECT Verified 11/16/17 19:22 midazolam Allergy Intermediate MOOD EFFECT Verified 11/16/17 19:22 oxazepam Allergy Intermediate MOOD EFFECT Verified 11/16/17 19:22 temazepam Allergy Intermediate MOOD EFFECT Verified 11/16/17 19:22 acetaminophen Allergy Mild Verified 11/16/17 19:22 brompheniramine Allergy Mild Verified 11/16/17 19:22 phenylpropanolamine Allergy Mild Verified 11/16/17 19:22 methadone AdvReac Severe MUSCLE Verified 11/16/17 19:22 LEIGH OPIOIDS Allergy Intermediate MOOD EFFECT Uncoded 09/17/14 12:23 Review of Systems Except as stated in HPI: all other systems reviewed are negative Neurologic Denies abnormal hearing, Denies abnormal movements, Denies abnormal speech, Reports abnormal gait and Denies weakness [facility] Medical History Medical History CKD (chronic kidney disease), stage III (Acute) Carpal tunnel syndrome of right wrist (Acute) Cataract (Acute) Surgical History Surgical History History of colon surgery (Acute) History of colonoscopy (Acute) History of hemorrhoidectomy (Acute) History of lumpectomy (Acute) History of partial colectomy (Acute) History of partial mastectomy of left breast (Acute) History of right-sided carotid endarterectomy (Acute) Family History Family History Daughter Breast cancer Social History Social History Substance History: No History of Abuse Second Hand Smoke Exposure: No Smoking Status: Former smoker How Often Do You Have a Drink Containing Alcohol: Never Recent Travel in [facility] within the Last 8 Weeks: No Recent Out of Country Travel within the Last 8 Weeks: No Immunization History Tetanus Immunization: <5 Years Hx Influenza Vaccine This Season: Yes Exam Narrative Exam Narrative: GENERAL: Well-developed well-nourished no obvious distress SKIN: Focused skin assessment warm/dry. HEAD: Atraumatic. Normocephalic. EYES: Pupils equal and round. No scleral icterus. No injection or drainage. ENT: No nasal bleeding or discharge. Mucous membranes pink and moist. NECK: Trachea midline. No JVD. CARDIOVASCULAR: Regular rate and rhythm. No murmur appreciated. RESPIRATORY: No accessory muscle use. Clear to auscultation. Breath sounds equal bilaterally. GASTROINTESTINAL: Abdomen soft, non-tender, nondistended. Hepatic and splenic margins not palpable. MUSCULOSKELETAL: No obvious deformities. No clubbing. No cyanosis. No edema. Pulses motor and sensory intact in all 4 extremities. There is some tenderness on the greater trochanter of the left hip, rotational tenderness is deferred. No midline CT or L-spine tenderness. NEUROLOGICAL: Awake and alert. No obvious cranial nerve deficits. Motor grossly within normal limits. Normal speech. PSYCHIATRIC: Appropriate mood and affect; insight and judgment normal. Course Initial Documented Vital Signs Temperature 98.6 F 08/05/18 18:00 Pulse Rate 73 02/12/18 18:00 Respiratory Rate 18 02/12/18 18:00 Blood Pressure 136/71 02/12/18 18:00 Pulse Oximetry 95 02/12/18 18:00 Last Documented Vital Signs Temperature 98.6 F 02/12/18 18:10 Pulse Rate 74 02/12/18 19:00 Respiratory Rate 18 02/12/18 19:00 Blood Pressure 154/69 H 02/12/18 19:00 Pulse Oximetry 99 02/12/18 19:00 Medical Decision Making MDM Narrative Medical decision making narrative: Patient discussed with Dr. Mcintyre orthopedics who is on-call from Doctor Catrina Mancuso, admitted to Dr. Lucas. For minimally displaced intertrochanteric hip fracture. Patient pain comfortable. She has a history of hallucinations for morphine but tolerated 4 mg of morphine in the emergency department just fine. Differential Diagnosis Differential Diagnosis: Hip fracture, pelvis fracture, multiple trauma highly unlikely Lab Data Result diagrams: 02/12/18 18:20 02/12/18 18:20 Lab Results 02/12/18 02/12/18 02/12/18 Range/Units 18:20 18:20 18:20 WBC 9.8 (4.0-11.0) th/mm3 RBC 4.49 (4.00-5.30) mil/mm3 Hgb 13.6 (11.6-15.3) gm/dL Hct 38.8 (35.0-46.0) % MCV 86.4 (80.0-100.0) fL MCH 30.4 (27.0-34.0) pg MCHC 35.2 (32.0-36.0) % RDW 14.0 (11.6-17.2) % Plt Count 295 (150-450) th/mm3 MPV 9.0 (7.0-11.0) fL Neut % (Auto) 60.3 (16.0-70.0) % Lymph % (Auto) 26.3 (9.0-44.0) % Sevier % (Auto) 10.0 H (0.0-8.0) % Eos % (Auto) 2.8 (0.0-4.0) % Baso % (Auto) 0.6 (0.0-2.0) % Neut # (Auto) 5.9 (1.8-7.7) th/mm3 Lymph # (Auto) 2.6 (1.0-4.8) th/mm3 Sevier # (Auto) 1.0 H (0.0-0.9) th/mm3 Eos # (Auto) 0.3 (0.0-0.4) th/mm3 Baso # (Auto) 0.1 (0.0-0.2) th/mm3 WBC Differential . Differential Comment Auto diff final PT 9.9 (9.8-11.6) sec INR 1.0 Ratio APTT 24.5 (24.3-30.1) sec Sodium 139 (136-145) meq/L Potassium 4.1 (3.5-5.1) meq/L Chloride 103 (98-107) meq/L Carbon Dioxide 26.9 (21.0-32.0) meq/L Anion Gap 9 (5-15) meq/L BUN 22 H (7-18) mg/dL Creatinine 0.98 (0.50-1.00) mg/dL Estimated GFR 54 L (>89) mL/min Random Glucose 116 H (74-106) mg/dL Calcium 8.8 (8.5-10.1) mg/dL Total Bilirubin 0.4 (0.2-1.0) mg/dL AST 26 (15-37) U/L ALT 13 (10-53) U/L Alkaline Phosphatase 103 (45-117) U/L Total Protein 7.3 (6.4-8.2) g/dL Albumin 3.6 (3.4-5.0) g/dL Blood Type Blood Type Recheck Antibody Screen 02/12/18 Range/Units 18:20 WBC (4.0-11.0) th/mm3 RBC (4.00-5.30) mil/mm3 Hgb (11.6-15.3) gm/dL Hct (35.0-46.0) % MCV (80.0-100.0) fL MCH (27.0-34.0) pg MCHC (32.0-36.0) % RDW (11.6-17.2) % Plt Count (150-450) th/mm3 MPV (7.0-11.0) fL Neut % (Auto) (16.0-70.0) % Lymph % (Auto) (9.0-44.0) % Sevier % (Auto) (0.0-8.0) % Eos % (Auto) (0.0-4.0) % Baso % (Auto) (0.0-2.0) % Neut # (Auto) (1.8-7.7) th/mm3 Lymph # (Auto) (1.0-4.8) th/mm3 Sevier # (Auto) (0.0-0.9) th/mm3 Eos # (Auto) (0.0-0.4) th/mm3 Baso # (Auto) (0.0-0.2) th/mm3 WBC Differential Differential Comment PT (9.8-11.6) sec INR Ratio APTT (24.3-30.1) sec Sodium (136-145) meq/L Potassium (3.5-5.1) meq/L Chloride (98-107) meq/L Carbon Dioxide (21.0-32.0) meq/L Anion Gap (5-15) meq/L BUN (7-18) mg/dL Creatinine (0.50-1.00) mg/dL Estimated GFR (>89) mL/min Random Glucose (74-106) mg/dL Calcium (8.5-10.1) mg/dL Total Bilirubin (0.2-1.0) mg/dL AST (15-37) U/L ALT (10-53) U/L Alkaline Phosphatase (45-117) U/L Total Protein (6.4-8.2) g/dL Albumin (3.4-5.0) g/dL Blood Type A Positive Blood Type Recheck Required Antibody Screen Negative Imaging Data Radiologist's impression: Chest X-Ray 02/12/18 18:01 CONCLUSION: No acute cardiopulmonary disease demonstrated. Hip X-Ray 02/12/18 18:01 CONCLUSION: Comminuted intertrochanteric fracture of the left femur. Discharge Plan Physicians Team ED Provider: Jam Del Cid Primary Care Provider: Do Arjun Crockett Attending Provider: Ty Lucas Rxs /Orders / Referrals /Forms Prescriptions: No Action furosemide [Lasix] 40 mg Tablet 40 mg PO DAILY RF: 0 enalapril maleate 10 mg Tablet 10 mg PO DAILY RF: 0 verapamil 180 mg Tablet Extended Release 180 mg PO DAILY RF: 0 potassium chloride 10 mEq Tablet Extended Release 10 meq PO DAILY RF: 0 omeprazole 40 mg Capsule,Delayed Release(Dr/Ec) 40 mg PO DAILY RF: 0 aspirin 81 mg Tablet,Delayed Release (Dr/Ec) 81 mg PO DAILY RF: 0 psyllium seed (sugar) [Metamucil (sugar)] Powder 1 tbsp PO DIRECTED RF: 0 fvqzvmlz-nju-DH-lycopen-lutein [Centrum Silver] 0.4-300-250 mg-mcg-mcg Tablet 1 tab PO DAILY RF: 0 calcium carbonate-vitamin D3 [Calcium 600 + D(3)] 600 mg(1,500mg) -400 unit Tablet 1 tab PO BID RF: 0 Discharge Interventions Interventions: ED Discharge Assessment Last Done: 02/12/18 20:11 Vital Signs Last Done: 02/12/18 18:00 Status ED Status: Left Department Discharge Information Discharge Date/Time: 02/12/18 20:12
[2018-02-12] MEDS ORDERED: Chlorhexidine Gluconate 2% 1 Pack (2 Cloths) TOPICAL SCH (21:00)
[2018-02-12] MEDS ORDERED: Sodium Chlor 0.9% Inj 500 ML IV.SIG SCH (21:00)
[2018-02-12] MEDS ORDERED: Metoprolol Tartrate 25 MG Tablet PO SCH (21:00)
[2018-02-12] MEDS: Morphine Inj 4 MG/ML Vial IV.PUSH PRN (21:34)
[2018-02-13] MEDS: Morphine Inj 4 MG/ML Vial IV.PUSH PRN ×4 (02:20→16:09)
[2018-02-13 05:24] LABS: Baso % (Auto) 0.1 % (0.0-2.0); Eos % (Auto) 0.1 % (0.0-4.0); Hematocrit 35.2 % (35.0-46.0); Hemoglobin 11.4 gm/dL (11.6-15.3); Lymph # (Auto) 1.3 th/mm3 (1.0-4.8); Lymph % (Auto) 10.3 % (9.0-44.0); Mean Corpuscular HGB Conc 32.3 % (32.0-36.0); Mean Corpuscular Hemoglobin 27.7 pg (27.0-34.0); Mean Corpuscular Volume 85.9 fL (80.0-100.0); Mean Platelet Volume 8.7 fL (7.0-11.0); Mono # (Auto) 0.9 th/mm3 (0.0-0.9); Mono % (Auto) 6.6 % (0.0-8.0); Neut # (Auto) 10.7 th/mm3 (1.8-7.7); Neut % (Auto) 82.9 % (16.0-70.0); Platelet Count 261 th/mm3 (150-450); Red Blood Count 4.09 mil/mm3 (4.00-5.30); White Blood Count 12.9 th/mm3 (4.0-11.0)
[2018-02-13 05:51] LABS: Alanine Aminotransferase 12 U/L (10-53); Alkaline Phosphatase 80 U/L (45-117); Anion Gap 6 meq/L (5-15); Aspartate Aminotransferase 13 U/L (15-37); Blood Urea Nitrogen 20 mg/dL (7-18); Calcium 8.3 mg/dL (8.5-10.1); Carbon Dioxide 29.6 meq/L (21.0-32.0); Chloride 104 meq/L (98-107); Glomerular Filtration Rate 60 mL/min (>89); Glucose,Random 118 mg/dL (74-106); Sodium 140 meq/L (136-145)
[2018-02-13] MEDS ORDERED: Vancomycin Inj 1 GM/200 ML PIGGYBACK IV.SIG SCH (07:14)
--- NOTE | 2018-02-13 07:29 | MB ---
cc: Baltazar Ureña MD DATE: 02/13/2018 REASON FOR CONSULTATION: Intertrochanteric fracture, left femur. HISTORY OF PRESENT ILLNESS: The patient fell at home when she lost her balance on a little ledge going from one room to the other resulting in this injury for which she was brought to [facility] Emergency Room where she was evaluated, x-rayed and admitted to the hospital. I last saw her post-carpal tunnel release of her wrist and she did very well from that. PAST MEDICAL HISTORY: She has a history of some hypertension, some heart disease. She is on lisinopril and verapamil and Lasix. She also has some GI problems including GERD. She is a community ambulator. ALLERGIES: SHE IS ALLERGIC TO MULTIPLE PARENTERAL ANALGESICS AND TRANQUILIZERS, ETC. PHYSICAL EXAMINATION: GENERAL: Reveals an elderly white female who is with her daughter present in the room. The patient is awake, alert and oriented. EXTREMITIES: Her left leg is flexed, externally rotated and shortened. Left foot is warm and pink and she moves her toes well. She is very painful around the left hip for any movement whatsoever. IMAGING: X-rays reveal a 3-part intertrochanteric fracture, displaced of the left femur. PLAN: She is to be taken to the operating room this afternoon and have open reduction internal fixation of this fracture. The nature of the fracture, nature of treatment and the serious nature of the situation discussed with the patient and her daughter. MD EDIS Walker/DANYEL , 07:16 AM , 07:23 AM
[2018-02-13] MEDS ORDERED: ceFAZolin Inj 2,000 MG in Sodium Chlor 0.9% Inj 100 ML IV.SIG SCH (08:00)
[2018-02-13] MEDS: Calcium/Vitamin D 250/125 MG Tablet PO SCH ×2 (08:14→22:56)
[2018-02-13] MEDS: Sodium Chloride 0.45 % Inj 1,000 ML IV.CONT SCH (08:15)
--- NOTE | 2018-02-13 11:11 | P.PN ---
Subjective Interval history: Follow up for fall and left hip fracture. She does currently resting in bed, no acute concerns. No fever or chills. Pain is well controlled. She is scheduled for surgery today. Physical Exam Vital signs: Vital Signs 02/12/18 18:00 02/12/18 18:10 02/12/18 18:22 Temperature 98.6 F 98.6 F Pulse Rate 73 73 73 Respiratory Rate 18 18 Blood Pressure 136/71 136/71 Pulse Oximetry 95 95 02/12/18 18:39 02/12/18 19:00 02/12/18 20:00 Temperature 97.7 F Pulse Rate 74 78 Respiratory Rate 18 18 Blood Pressure 154/69 H 132/58 L Pulse Oximetry 95 99 95 02/12/18 21:00 02/13/18 00:00 02/13/18 04:00 Temperature 97.3 F L 98.3 F Pulse Rate 72 71 79 Respiratory Rate 18 18 Blood Pressure 108/63 120/58 L Pulse Oximetry 95 96 02/13/18 07:51 02/13/18 10:08 Temperature 98.5 F Pulse Rate 77 77 Respiratory Rate 17 Blood Pressure 121/57 L Pulse Oximetry 94 L Intake & Output 02/12/18 02/13/18 02/13/18 18:59 06:59 18:59 Intake Total 1000 / 1000 Output Total 425 / 425 Balance -425 / -425 1000 / 1000 Weight 82.554 kg 82.55 kg Intake: IV 1000 / 1000 1/2 Normal Saline Inj 1,000 ML 1000 / 1000 @ 75 mls/hr IV.CONT .[id number] [facility] Rx#:[id number] Output: Urine 425 / 425 Other: Date of Last Bowel Movement 02/12/18 Narrative: GENERAL: Alert, NAD. SKIN: Warm and dry. HEAD: Normocephalic. EYES: No scleral icterus. No injection or drainage. NECK: Supple, trachea midline. No JVD or lymphadenopathy. CARDIOVASCULAR: Regular rate and rhythm without murmurs, gallops, or rubs. RESPIRATORY: Breath sounds equal bilaterally. No accessory muscle use. GASTROINTESTINAL: Abdomen soft, non-tender, nondistended. MUSCULOSKELETAL: No cyanosis, or edema. Able to move all toes. BACK: Nontender without obvious deformity. No CVA tenderness. - Urinary Catheter Management Indwelling Urethral Catheter Cath placed during this visit: no Reason for continuing: Other continuation reason Results - Labs CBC & Chem 7: 02/13/18 03:45 02/13/18 03:45 Laboratory Results - last 24 hr 02/12/18 02/12/18 02/12/18 18:20 18:20 18:20 WBC 9.8 RBC 4.49 Hgb 13.6 Hct 38.8 MCV 86.4 MCH 30.4 MCHC 35.2 RDW 14.0 Plt Count 295 MPV 9.0 Neut % (Auto) 60.3 Lymph % (Auto) 26.3 [place] % (Auto) 10.0 H Eos % (Auto) 2.8 Baso % (Auto) 0.6 Neut # (Auto) 5.9 Lymph # (Auto) 2.6 [place] # (Auto) 1.0 H Eos # (Auto) 0.3 Baso # (Auto) 0.1 WBC Differential . Differential Comment Auto diff final PT 9.9 INR 1.0 APTT 24.5 Sodium 139 Potassium 4.1 Chloride 103 Carbon Dioxide 26.9 Anion Gap 9 BUN 22 H Creatinine 0.98 Estimated GFR 54 L Random Glucose 116 H Calcium 8.8 Total Bilirubin 0.4 AST 26 ALT 13 Alkaline Phosphatase 103 Total Protein 7.3 Albumin 3.6 Blood Type Blood Type Recheck Antibody Screen 02/12/18 02/13/18 02/13/18 18:20 03:45 03:45 WBC 12.9 H RBC 4.09 Hgb 11.4 L D Hct 35.2 MCV 85.9 MCH 27.7 MCHC 32.3 RDW 14.0 Plt Count 261 MPV 8.7 Neut % (Auto) 82.9 H Lymph % (Auto) 10.3 [place] % (Auto) 6.6 Eos % (Auto) 0.1 Baso % (Auto) 0.1 Neut # (Auto) 10.7 H Lymph # (Auto) 1.3 [place] # (Auto) 0.9 Eos # (Auto) 0.0 Baso # (Auto) 0.0 WBC Differential . Differential Comment Auto diff final PT INR APTT Sodium 140 Potassium 4.0 Chloride 104 Carbon Dioxide 29.6 Anion Gap 6 BUN 20 H Creatinine 0.89 Estimated GFR 60 L Random Glucose 118 H Calcium 8.3 L Total Bilirubin 0.5 AST 13 L ALT 12 Alkaline Phosphatase 80 Total Protein 6.0 L D Albumin 3.0 L D Blood Type A Positive Blood Type Recheck Required Antibody Screen Negative - Imaging Impressions Chest X-Ray 02/12/18 18:01 CONCLUSION: No acute cardiopulmonary disease demonstrated. Hip X-Ray 02/12/18 18:01 CONCLUSION: Comminuted intertrochanteric fracture of the left femur. Assessment and Plan - Assessment (1) Hip fracture, left Code(s): S72.002A - Fracture of unspecified part of neck of left femur, initial encounter for closed fracture Status: Acute - Plan 87-year-old female admitted secondary to left hip fracture sustained in a fall. Left hip fracture Orthopedic surgeon consulted - surgical intervention 02/13/2018. Continue as needed pain meds with Morphine. PT consulted. EKG unremarkable for any ischemic findings with a heart rate 74. Hypertension Continue enalapril 10mg Qday. Currently normotensive. Gastroesophageal reflux disease Continue omeprazole Hx of Breast Cancer Continue to follow as an outpatient DVT prophylaxis SCDs for now
[2018-02-13] MEDS ORDERED: Lidocaine PF 1% Inj 5 ML Syringe INFILTRATN ONE (12:00)
[2018-02-13] MEDS ORDERED: Phenylephrine/NS 1000 MCG/10ML Syringe IV.PUSH ONE (12:00)
[2018-02-13] MEDS ORDERED: Neostigmine Inj 5 MG/5 ML Syringe IV.PUSH ONE (12:00)
[2018-02-13] MEDS ORDERED: Glycopyrrolate Inj 1 MG/5 ML Syringe IV.PUSH ONE (12:00)
[2018-02-13] MEDS ORDERED: ceFAZolin 2 GM Premix Inj 2 GM/100 ML BAG IV.SIG ONE (16:05)
[2018-02-13] MEDS ORDERED: Sodium Chlor 0.9% Inj 0 ML ONE (17:35)
[2018-02-13] MEDS ORDERED: ceFAZolin 2 GM Premix Inj 0 GM/0 ML PIGGYBACK IV.SIG ONE (17:35)
[2018-02-13] MEDS ORDERED: Aluminum/Magnesium/Simethacone Susp 30 ML UDC PO PRN (18:51)
[2018-02-13] MEDS ORDERED: Bisacodyl 10 MG Supp RECTAL PRN (18:51)
[2018-02-13] MEDS ORDERED: Acetaminophen 325 MG Tablet PO PRN (18:51)
[2018-02-13] MEDS ORDERED: Post-op Orders (for Pharmacy) OTHER STA (18:51)
[2018-02-13] MEDS ORDERED: *Meperidine Inj 25 MG/ML Vial PERIprocedural Use ONLY ONE (19:26)
[2018-02-13] MEDS ORDERED: fentaNYL Citrate Inj 100 MCG/2 ML Ampul ONE (19:27)
--- NOTE | 2018-02-13 19:49 | MP ---
cc: Baltazar Ureña MD DATE OF OPERATION: 02/13/2018 PREOPERATIVE DIAGNOSIS: Three-part intertrochanteric fracture, left femur. POSTOPERATIVE DIAGNOSIS: Three-part intertrochanteric fracture, left femur. OPERATIVE PROCEDURE: Open reduction, internal fixation 3-part intertrochanteric fracture, left femur, with a Synthes cephalomedullary nail. We used a 11 mm diameter short nail, 125 degree angle, with a 38 mm distal screw and a 95 mm spiral blade. SURGEON: Baltazar Ureña MD ANESTHESIA: General. DESCRIPTION OF PROCEDURE: After induction of general anesthesia, the patient was placed on the fracture table and the fracture reduced by traction, adduction and internal rotation. The leg was properly positioned and protected, upper extremity was properly positioned. Fluoroscopic imaging revealed good reduction of the fracture. The lateral aspect of the hip and thigh thoroughly prepped with alcohol, ChloraPrep and draped in routine fashion, including and [place] shower curtain drape. An oblique incision was made over the greater trochanter through about 5 inches of fatty tissue until we encountered the fascia, where the fascia was incised over the greater trochanter. A curved awl was placed over the tip of the trochanter. A guidewire was introduced, which was found to be in good position on AP and lateral views. A large reamer was used over the guidewire to enter the femoral canal. An above described cephalomedullary nail was then introduced into the shaft of the femur and followed fluoroscopically. A guidewire was then introduced into the center of the femoral head and assessed by fluoroscopic imaging, followed by introduction of a 95 mm spiral blade, which is seated and proximal locking was obtained. Distal locking was obtained with a 38 mm bicortical screw. Final fluoroscopic images revealed good position, alignment and fixation and these images were saved for record keeping. The wound was irrigated with saline solution, followed by closure of the proximal wound with a layer of #2 Vicryl, a layer of 0 Vicryl and then 2-0 Vicryl and then subcuticular Quill and Steri-Strips. Distal incision closed with subcuticular suture and Steri-Strips. Dressing applied with Xeroform, 4 x 4's, ABD and Primapore tape. The patient transferred to recovery room in satisfactory condition. The patient tolerated the procedure well . COMPLICATIONS: None. POSTOPERATIVE CONDITION: Satisfactory. PROGNOSIS: Guarded because she is 83 years old and this his a fracture and, therefore, it is a guarded prognosis. ESTIMATED BLOOD LOSS: 200 mL MD EDIS Walker/NAYELI , 07:11 PM , 07:18 PM
--- NOTE | 2018-02-13 19:59 | XR ---
EXAM DATE: 02/13/2018 7:56 PM EDT AGE/SEX: 87 years / Female INDICATIONS: Open reduction left hip. CLINICAL DATA: This is the patient's subsequent encounter. Patient reports that signs and symptoms h ave been present for 2 days and indicates a pain score of Nonresponsive. MEDICAL/SURGICAL HISTORY: None. None. COMPARISON: No prior exams available for comparison. FINDINGS: 4 views of the left femur are recorded digitally in the operating room during placement of intramedul sandra dale and trochanteric nail with distal screw. CONCLUSION: Intraoperative images. Electronically signed by: Art Reyes MD 02/13/2018 7:58 PM EDT
[2018-02-13] MEDS: Multivitamin/Minerals Therapeutic Tablet PO SCH (22:33)
[2018-02-13] MEDS: Ketorolac Inj 30 MG/ML (IVP) Vial IV.PUSH SCH (22:33)
[2018-02-13] MEDS: Senna/Docusate Sodium 8.6/50 MG Tablet PO SCH (22:33)
[2018-02-13] MEDS: Sod Chloride 0.9% Inj 1,000 ML IV.CONT SCH (22:57)
[2018-02-14] MEDS: ceFAZolin 2 GM Premix Inj 2 GM/50 ML PIGGYBACK IV.SIG SCH ×3 (01:16→18:25)
[2018-02-14] MEDS: Sodium Chloride 0.45 % Inj 1,000 ML IV.CONT SCH ×2 (01:29→11:03)
[2018-02-14 04:44] LABS: Hematocrit 30.5 % (35.0-46.0)
[2018-02-14 05:10] LABS: Carbon Dioxide 26.5 meq/L (21.0-32.0); Potassium 4.5 meq/L (3.5-5.1)
[2018-02-14] MEDS: Ketorolac Inj 30 MG/ML (IVP) Vial IV.PUSH SCH ×2 (05:29→11:02)
--- NOTE | 2018-02-14 07:37 | P.PNOP ---
Subjective Interval history: Postop day 1, internal fixation left hip fracture. No complaints Physical Exam Vital signs: Vital Signs 02/13/18 07:51 02/13/18 10:08 02/13/18 11:57 Temperature 98.5 F 98.7 F Pulse Rate 77 77 81 Respiratory Rate 17 18 Blood Pressure 121/57 L 142/66 H Pulse Oximetry 94 L 94 L 02/13/18 15:43 02/13/18 19:20 02/13/18 19:30 Temperature 98.4 F 97.9 F Pulse Rate 89 110 H 105 H Respiratory Rate 18 18 18 Blood Pressure 173/74 H 178/82 H 135/82 Pulse Oximetry 95 94 L 94 L 02/13/18 19:45 02/13/18 20:00 02/13/18 20:30 Temperature 97.9 F Pulse Rate 101 H 98 H Respiratory Rate 18 18 18 Blood Pressure 132/77 128/65 Pulse Oximetry 94 L 94 L 02/13/18 20:33 02/13/18 21:22 02/13/18 21:29 Temperature 98.3 F Pulse Rate 92 H 100 H Respiratory Rate 18 Blood Pressure 132/82 Pulse Oximetry 93 L 92 L 02/14/18 00:00 02/14/18 01:02 02/14/18 02:23 Temperature 98 F Pulse Rate 93 H 95 H Respiratory Rate 17 18 17 Blood Pressure 120/69 Pulse Oximetry 92 L 02/14/18 03:26 02/14/18 03:55 Temperature 97.9 F Pulse Rate 90 87 Respiratory Rate 18 Blood Pressure 115/57 L Pulse Oximetry 92 L Intake & Output 02/13/18 02/14/18 02/14/18 18:59 06:59 18:59 Intake Total 1620 / 1620 1190 / 1190 Output Total 350 / 350 150 / 150 Balance 1270 / 1270 1040 / 1040 Weight 82.55 kg Intake: IV 1620 / 1620 950 / 950 1/2 Normal Saline Inj 1,000 ML 1000 / 1000 950 / 950 @ 75 mls/hr IV.CONT .[id number] [facility] Rx#:[id number] LR 1000 mL Inj 1,000 ML @ 30 500 / 500 mls/hr IV.SIG .Q24H [facility] Rx#: [id number] Ancef Inj 2,000 MG In NS Inj 120 / 120 100 ML @ 240 mls/hr IV.SIG [facility] Rx#:[id number] Oral 240 / 240 Output: Estimated Blood Loss 250 / 250 Urine Amount (Catheter) 100 / 100 150 / 150 Indwelling Urethral Catheter 100 / 100 150 / 150 Other: Date of Last Bowel Movement 02/12/18 # Bowel Movements 0 Narrative: She is awake, alert and oriented. She is in bed. Dressings are intact and dry. She moves her toes well in the left foot. Left leg is in satisfactory orientation. Daughter is present at bedside. - Urinary Catheter Management Indwelling Urethral Catheter Cath placed during this visit: no Reason for continuing: Hourly intake/output Results - Labs CBC & Chem 7: 02/14/18 03:25 02/14/18 03:25 Laboratory Results - last 24 hr 02/14/18 02/14/18 03:25 03:25 Hgb 10.0 L Hct 30.5 L Sodium 136 Potassium 4.5 Chloride 101 Carbon Dioxide 26.5 Anion Gap 9 BUN 17 Creatinine 0.95 Estimated GFR 56 L Random Glucose 144 H Calcium 8.0 L - Imaging Impressions Hip X-Ray 02/13/18 00:00 CONCLUSION: Intraoperative images. Assessment and Plan - Ortho Post Op Day # 1
--- NOTE | 2018-02-14 07:47 | ECG ---
Date Performed: 02/12/2018 Time Performed: 19:13:27 PTAGE: 87 years EKG: Sinus rhythm ATYPICAL ECG PREVIOUS TRACING : 09/17/2014 12.21 DOCTOR: Socorro Vasquez Interpretating Date/Time 02/14/2018 07:39:58
[2018-02-14] MEDS: Sod Chloride 0.9% Inj 1,000 ML IV.CONT SCH ×2 (08:22→18:30)
[2018-02-14] MEDS: Multivitamin/Minerals Therapeutic Tablet PO SCH ×2 (08:23→20:02)
[2018-02-14] MEDS: Calcium/Vitamin D 250/125 MG Tablet PO SCH (08:23)
[2018-02-14] MEDS: Senna/Docusate Sodium 8.6/50 MG Tablet PO SCH ×2 (08:23→20:02)
--- NOTE | 2018-02-14 14:14 | P.PN ---
Subjective Interval history: Follow-up for left hip fracture status post internal fixation. Patient is currently sitting in her chair. She complains of pain. Denies any chest pain, shortness of breath, fever or chills. Physical Exam Vital signs: Vital Signs 02/13/18 15:43 02/13/18 19:20 02/13/18 19:30 Temperature 98.4 F 97.9 F Pulse Rate 89 110 H 105 H Respiratory Rate 18 18 18 Blood Pressure 173/74 H 178/82 H 135/82 Pulse Oximetry 95 94 L 94 L 02/13/18 19:45 02/13/18 20:00 02/13/18 20:30 Temperature 97.9 F Pulse Rate 101 H 98 H Respiratory Rate 18 18 18 Blood Pressure 132/77 128/65 Pulse Oximetry 94 L 94 L 02/13/18 20:33 02/13/18 21:22 02/13/18 21:29 Temperature 98.3 F Pulse Rate 92 H 100 H Respiratory Rate 18 Blood Pressure 132/82 Pulse Oximetry 93 L 92 L 02/14/18 00:00 02/14/18 01:02 02/14/18 02:23 Temperature 98 F Pulse Rate 93 H 95 H Respiratory Rate 17 18 17 Blood Pressure 120/69 Pulse Oximetry 92 L 02/14/18 03:26 02/14/18 03:55 02/14/18 08:00 Temperature 97.9 F 98.1 F Pulse Rate 90 87 83 Respiratory Rate 18 16 Blood Pressure 115/57 L 126/59 L Pulse Oximetry 92 L 96 Intake & Output 02/13/18 02/14/18 02/14/18 18:59 06:59 18:59 Intake Total 1620 / 1620 1240 / 1240 50 / 50 Output Total 350 / 350 150 / 150 Balance 1270 / 1270 1090 / 1090 50 / 50 Weight 82.55 kg Intake: IV 1620 / 1620 1000 / 1000 50 / 50 1/2 Normal Saline Inj 1,000 ML 1000 / 1000 950 / 950 @ 75 mls/hr IV.CONT .[id number] [facility] Rx#:[id number] LR 1000 mL Inj 1,000 ML @ 30 500 / 500 mls/hr IV.SIG .Q24H [facility] Rx#: [id number] Ancef 2 GM Premix Inj 2 gm In 50 / 50 50 / 50 50 ml @ 100 mls/hr IV.SIG Q8H [facility] Rx#:[id number] Ancef Inj 2,000 MG In NS Inj 120 / 120 100 ML @ 240 mls/hr IV.SIG [employer] [facility] Rx#:[id number] Oral 240 / 240 Output: Estimated Blood Loss 250 / 250 Urine Amount (Catheter) 100 / 100 150 / 150 Indwelling Urethral Catheter 100 / 100 150 / 150 Other: Date of Last Bowel Movement 02/12/18 # Bowel Movements 0 Narrative: GENERAL: Alert, NAD. SKIN: Warm and dry. HEAD: Normocephalic. EYES: No scleral icterus. No injection or drainage. NECK: Supple, trachea midline. No JVD or lymphadenopathy. CARDIOVASCULAR: Regular rate and rhythm without murmurs, gallops, or rubs. RESPIRATORY: Breath sounds equal bilaterally. No accessory muscle use. GASTROINTESTINAL: Abdomen soft, non-tender, nondistended. MUSCULOSKELETAL: No cyanosis, or edema. Able to move all toes. BACK: Nontender without obvious deformity. No CVA tenderness. - Urinary Catheter Management Indwelling Urethral Catheter Cath placed during this visit: no Reason for continuing: Hourly intake/output Results - Labs CBC & Chem 7: 02/14/18 03:25 02/14/18 03:25 Laboratory Results - last 24 hr 02/14/18 02/14/18 03:25 03:25 Hgb 10.0 L Hct 30.5 L Sodium 136 Potassium 4.5 Chloride 101 Carbon Dioxide 26.5 Anion Gap 9 BUN 17 Creatinine 0.95 Estimated GFR 56 L Random Glucose 144 H Calcium 8.0 L - Imaging Impressions Hip X-Ray 02/13/18 00:00 CONCLUSION: Intraoperative images. Assessment and Plan - Assessment (1) Hip fracture, left Code(s): S72.002A - Fracture of unspecified part of neck of left femur, initial encounter for closed fracture Status: Acute - Plan 87-year-old female admitted secondary to left hip fracture sustained in a fall. Left hip fracture Orthopedic surgeon consulted - s/p internal fixation left hip fracture on 2017. Continue as needed pain meds with Acetaminophen, Tramadol and Morphine for [place] pain. PT consulted. Hypertension Continue enalapril 10mg Qday. Currently normotensive. Gastroesophageal reflux disease Continue omeprazole Hx of Breast Cancer Continue to follow as an outpatient DVT prophylaxis Xarelto 10mg Q24hrs for DVT prophylaxis.
[2018-02-14] MEDS: Morphine Inj 4 MG/ML Vial IV.PUSH PRN (14:54)
[2018-02-14] MEDS: Rivaroxaban 10 MG Tablet PO SCH (18:25)
[2018-02-15] MEDS: Sodium Chloride 0.45 % Inj 1,000 ML IV.CONT SCH ×2 (01:17→18:13)
[2018-02-15] MEDS: Morphine Inj 4 MG/ML Vial IV.PUSH PRN ×2 (01:19→12:44)
[2018-02-15] MEDS: Sod Chloride 0.9% Inj 1,000 ML IV.CONT SCH ×3 (05:26→21:59)
[2018-02-15] MEDS: Senna/Docusate Sodium 8.6/50 MG Tablet PO SCH ×2 (08:46→20:06)
[2018-02-15] MEDS: Calcium/Vitamin D 250/125 MG Tablet PO SCH (08:46)
[2018-02-15] MEDS: Multivitamin/Minerals Therapeutic Tablet PO SCH ×2 (08:47→20:06)
[2018-02-15 09:27] LABS: Baso % (Auto) 0.3 % (0.0-2.0); Eos # (Auto) 0.2 th/mm3 (0.0-0.4); Eos % (Auto) 1.4 % (0.0-4.0); Hematocrit 26.9 % (35.0-46.0); Hemoglobin 8.8 gm/dL (11.6-15.3); Lymph # (Auto) 1.4 th/mm3 (1.0-4.8); Lymph % (Auto) 12.4 % (9.0-44.0); Mean Corpuscular HGB Conc 32.8 % (32.0-36.0); Mean Corpuscular Hemoglobin 28.8 pg (27.0-34.0); Mean Corpuscular Volume 87.7 fL (80.0-100.0); Mono # (Auto) 1.3 th/mm3 (0.0-0.9); Mono % (Auto) 11.7 % (0.0-8.0); Neut # (Auto) 8.1 th/mm3 (1.8-7.7); Neut % (Auto) 74.2 % (16.0-70.0); Platelet Count 178 th/mm3 (150-450); Red Blood Count 3.07 mil/mm3 (4.00-5.30); Red Cell Distribution Width 14.1 % (11.6-17.2); White Blood Count 10.9 th/mm3 (4.0-11.0)
[2018-02-15 09:58] LABS: Calcium 8.1 mg/dL (8.5-10.1); Carbon Dioxide 26.8 meq/L (21.0-32.0); Potassium 4.8 meq/L (3.5-5.1)
--- NOTE | 2018-02-15 13:44 | P.PN ---
Subjective Interval history: Follow-up for left hip fracture status post internal fixation. Patient is complaining of nausea, vomiting. She gets nauseated when she is in a lot of pain. Sitting in her chair. No fever, chills. Physical Exam Vital signs: Vital Signs 02/14/18 16:00 02/14/18 19:05 02/14/18 20:25 Temperature 97.1 F L 99.3 F Pulse Rate 99 H 96 H 92 H Respiratory Rate 16 17 Blood Pressure 90/41 L 90/50 L Pulse Oximetry 92 L 93 L 02/14/18 23:10 02/15/18 00:00 02/15/18 03:01 Temperature 99.4 F 99.5 F Pulse Rate 101 H 102 H 114 H Respiratory Rate 17 18 Blood Pressure 105/51 L 115/58 L Pulse Oximetry 93 L 92 L 02/15/18 04:00 02/15/18 08:00 02/15/18 12:00 Temperature 98.6 F 97.9 F Pulse Rate 105 H 105 H 95 H Respiratory Rate 18 18 Blood Pressure 105/53 L 118/53 L Pulse Oximetry 92 L 93 L Intake & Output 02/14/18 02/15/18 02/15/18 18:59 06:59 18:59 Intake Total 1050 / 1050 360 / 360 Output Total 150 / 150 500 / 500 Balance 900 / 900 -140 / -140 Weight 82.55 kg Intake: IV 1050 / 1050 1/2 Normal Saline Inj 1,000 ML 1000 / 1000 @ 75 mls/hr IV.CONT .[id number] [facility] Rx#:[id number] Ancef 2 GM Premix Inj 2 gm In 50 / 50 50 ml @ 100 mls/hr IV.SIG Q8H [facility] Rx#:[id number] Oral 360 / 360 Output: Urine 150 / 150 Urine Amount (Catheter) 500 / 500 Indwelling Urethral Catheter 500 / 500 Other: Date of Last Bowel Movement 02/12/18 02/12/18 # Bowel Movements 0 Narrative: GENERAL: Alert, NAD. SKIN: Warm and dry. HEAD: Normocephalic. EYES: No scleral icterus. No injection or drainage. NECK: Supple, trachea midline. No JVD or lymphadenopathy. CARDIOVASCULAR: Regular rate and rhythm without murmurs, gallops, or rubs. RESPIRATORY: Breath sounds equal bilaterally. No accessory muscle use. GASTROINTESTINAL: Abdomen soft, non-tender, nondistended. MUSCULOSKELETAL: No cyanosis, or edema. Able to move all toes. BACK: Nontender without obvious deformity. No CVA tenderness. - Urinary Catheter Management Indwelling Urethral Catheter Cath placed during this visit: no Reason for continuing: Other continuation reason Results - Labs CBC & Chem 7: 02/15/18 09:10 02/15/18 09:10 Laboratory Results - last 24 hr 02/15/18 02/15/18 09:10 09:10 WBC 10.9 RBC 3.07 L Hgb 8.8 L Hct 26.9 L MCV 87.7 MCH 28.8 MCHC 32.8 RDW 14.1 Plt Count 178 D MPV 9.0 Neut % (Auto) 74.2 H Lymph % (Auto) 12.4 [place] % (Auto) 11.7 H Eos % (Auto) 1.4 Baso % (Auto) 0.3 Neut # (Auto) 8.1 H Lymph # (Auto) 1.4 [place] # (Auto) 1.3 H Eos # (Auto) 0.2 Baso # (Auto) 0.0 WBC Differential . Differential Comment Auto diff final Sodium 133 L Potassium 4.8 Chloride 99 Carbon Dioxide 26.8 Anion Gap 7 BUN 24 H Creatinine 1.07 H Estimated GFR 49 L Random Glucose 120 H Calcium 8.1 L Assessment and Plan - Assessment (1) Hip fracture, left Code(s): S72.002A - Fracture of unspecified part of neck of left femur, initial encounter for closed fracture Status: Acute - Plan 87-year-old female admitted secondary to left hip fracture sustained in a fall. Left hip fracture Orthopedic surgeon consulted - s/p internal fixation left hip fracture on 2017. Continue as needed pain meds with Acetaminophen, [place] and Morphine for Breakthrough pain. Patient is not allergic to Acetaminophen, Opiates or Morphine. Zofran for Nausea/vomiting. PT consulted. Hypertension Continue enalapril 10mg Qday. Currently normotensive. Gastroesophageal reflux disease Continue omeprazole Hx of Breast Cancer Continue to follow as an outpatient DVT prophylaxis Xarelto 10mg Q24hrs for DVT prophylaxis.
[2018-02-15] MEDS ORDERED: HYDROmorphone PF Inj 2 MG/ML Vial IV.PUSH ONE (14:45)
[2018-02-15] MEDS: Rivaroxaban 10 MG Tablet PO SCH (18:16)
[2018-02-15] MEDS: HYDROmorphone PF Inj 2 MG/ML Vial IV.PUSH PRN (23:24)
[2018-02-16] MEDS: HYDROmorphone PF Inj 2 MG/ML Vial IV.PUSH PRN ×3 (06:12→21:52)
[2018-02-16] MEDS: Sodium Chloride 0.45 % Inj 1,000 ML IV.CONT SCH ×2 (06:13→18:33)
[2018-02-16] MEDS: Calcium/Vitamin D 250/125 MG Tablet PO SCH (09:48)
[2018-02-16] MEDS: Senna/Docusate Sodium 8.6/50 MG Tablet PO SCH ×2 (09:49→20:15)
[2018-02-16] MEDS: Multivitamin/Minerals Therapeutic Tablet PO SCH ×2 (09:49→20:15)
--- NOTE | 2018-02-16 10:51 | P.PN ---
Subjective Interval history: Follow-up for left hip fracture status post internal fixation. Patient is currently doing well. Resting in bed. Per daughter, patient is feeling much better today. No fever or chills. There are looking into various SNF options. Physical Exam Vital signs: Vital Signs 02/15/18 12:00 02/15/18 16:00 02/15/18 19:21 Temperature 97.9 F 98.1 F Pulse Rate 95 H 96 H Respiratory Rate 18 18 Blood Pressure 118/53 L 114/63 Pulse Oximetry 93 L 94 L 93 L 02/15/18 20:00 02/15/18 20:08 02/16/18 00:00 Temperature 98.4 F 99.0 F Pulse Rate 86 86 76 Respiratory Rate 19 15 Blood Pressure 97/48 L 133/86 Pulse Oximetry 95 99 02/16/18 00:24 02/16/18 03:52 02/16/18 04:00 Temperature 98.8 F Pulse Rate 83 81 91 H Respiratory Rate 17 Blood Pressure 126/59 L Pulse Oximetry 93 L 02/16/18 08:00 Temperature 97.7 F Pulse Rate 84 Respiratory Rate 18 Blood Pressure 116/56 L Pulse Oximetry 96 Intake & Output 02/15/18 02/16/18 02/16/18 18:59 06:59 18:59 Intake Total 1960 / 1960 Output Total 250 / 250 100 / 100 Balance -250 / -250 1860 / 1860 Weight 91 kg Intake: IV 1000 / 1000 1/2 Normal Saline Inj 1,000 ML 1000 / 1000 @ 75 mls/hr IV.CONT .[id number] [facility]AC[facility] Rx#:[id number] Oral 960 / 960 Output: Urine 100 / 100 Urine Amount (Catheter) 250 / 250 Indwelling Urethral Catheter 250 / 250 Other: # Voids 1 Date of Last Bowel Movement 02/12/18 02/12/18 Narrative: GENERAL: Alert, NAD. SKIN: Warm and dry. HEAD: Normocephalic. EYES: No scleral icterus. No injection or drainage. NECK: Supple, trachea midline. No JVD or lymphadenopathy. CARDIOVASCULAR: Regular rate and rhythm without murmurs, gallops, or rubs. RESPIRATORY: Breath sounds equal bilaterally. No accessory muscle use. GASTROINTESTINAL: Abdomen soft, non-tender, nondistended. MUSCULOSKELETAL: No cyanosis, or edema. Able to move all toes. BACK: Nontender without obvious deformity. No CVA tenderness. - Urinary Catheter Management Indwelling Urethral Catheter Cath placed during this visit: yes, but has since been removed by the nurse Reason for continuing: Decision to DC catheter Removal date: 02/15/18 Removal time: 18:52 Results - Labs CBC & Chem 7: 02/15/18 09:10 02/15/18 09:10 Assessment and Plan - Assessment (1) Hip fracture, left Code(s): S72.002A - Fracture of unspecified part of neck of left femur, initial encounter for closed fracture Status: Acute - Plan 87-year-old female admitted secondary to left hip fracture sustained in a fall. Left hip fracture Orthopedic surgeon consulted - s/p internal fixation left hip fracture on 2017. Continue as needed pain meds with Acetaminophen, [place] and Morphine for Breakthrough pain. Patient is not allergic to Acetaminophen, Opiates or Morphine. Zofran for Nausea/vomiting. PT consulted. Hypertension Continue enalapril 10mg Qday. Currently normotensive. Gastroesophageal reflux disease Continue omeprazole Hx of Breast Cancer Continue to follow as an outpatient CKD Stage III eGFR 49. Urine output is diminished. We will start Flomax 0.4mg Qday. Bladder scan did not show much residual. Will need outpatient nephrology follow up. DVT prophylaxis Xarelto 10mg Q24hrs for DVT prophylaxis.
[2018-02-16] MEDS: Sod Chloride 0.9% Inj 1,000 ML IV.CONT SCH ×2 (13:10→18:33)
--- NOTE | 2018-02-16 13:53 | P.PNOP ---
Subjective Interval history: OK, pain under control Physical Exam Vital signs: Vital Signs 02/15/18 16:00 02/15/18 19:21 02/15/18 20:00 Temperature 98.1 F 98.4 F Pulse Rate 96 H 86 Respiratory Rate 18 19 Blood Pressure 114/63 97/48 L Pulse Oximetry 94 L 93 L 95 02/15/18 20:08 02/16/18 00:00 02/16/18 00:24 Temperature 99.0 F Pulse Rate 86 76 83 Respiratory Rate 15 Blood Pressure 133/86 Pulse Oximetry 99 02/16/18 03:52 02/16/18 04:00 02/16/18 08:00 Temperature 98.8 F 97.7 F Pulse Rate 81 91 H 84 Respiratory Rate 17 18 Blood Pressure 126/59 L 116/56 L Pulse Oximetry 93 L 96 02/16/18 10:52 Temperature Pulse Rate Respiratory Rate Blood Pressure Pulse Oximetry 96 Intake & Output 02/15/18 02/16/18 02/16/18 18:59 06:59 18:59 Intake Total 1960 / 1960 Output Total 250 / 250 100 / 100 Balance -250 / -250 1860 / 1860 Weight 91 kg Intake: IV 1000 / 1000 1/2 Normal Saline Inj 1,000 ML 1000 / 1000 @ 75 mls/hr IV.CONT .[id number] [facility] Rx#:[id number] Oral 960 / 960 Output: Urine 100 / 100 Urine Amount (Catheter) 250 / 250 Indwelling Urethral Catheter 250 / 250 Other: # Voids 1 Date of Last Bowel Movement 02/12/18 02/12/18 02/16/18 Narrative: A.A.and O left hipincision clean and dry Moves toes well - Urinary Catheter Management Indwelling Urethral Catheter Cath placed during this visit: yes, but has since been removed by the nurse Reason for continuing: Decision to DC catheter Removal date: 02/15/18 Removal time: 18:52 Results - Labs CBC & Chem 7: 02/15/18 09:10 02/15/18 09:10 Assessment and Plan - Assessment and Plan Ready to be DCed from ortho standpoint Discussed with daughter to continue xarelto 10 mg daily for 3-4 weeks To see me feb 28, for FU
[2018-02-16] MEDS: Rivaroxaban 10 MG Tablet PO SCH (18:34)
[2018-02-17] MEDS: Sod Chloride 0.9% Inj 1,000 ML IV.CONT SCH (05:05)
[2018-02-17] MEDS: Sodium Chloride 0.45 % Inj 1,000 ML IV.CONT SCH (05:06)
[2018-02-17] MEDS: Calcium/Vitamin D 250/125 MG Tablet PO SCH (09:45)
[2018-02-17] MEDS: Multivitamin/Minerals Therapeutic Tablet PO SCH (09:45)
[2018-02-17] MEDS: Senna/Docusate Sodium 8.6/50 MG Tablet PO SCH (09:46)
[2018-02-17] MEDS: HYDROmorphone PF Inj 2 MG/ML Vial IV.PUSH PRN ×3 (11:36→20:25)
--- NOTE | 2018-02-17 11:52 | P.PNIM ---
Subjective Interval history: Nausea and vomiting present this morning. This appears to be related to Langtry or Ultram. Patient has had problems with opioids in the past, however she says she does well with morphine and did well with Dilaudid during this hospitalization. Physical Exam Vital signs: Vital Signs 02/16/18 12:00 02/16/18 16:00 02/16/18 19:17 Temperature 98.2 F 98.2 F Pulse Rate 91 H 92 H Respiratory Rate 18 18 Blood Pressure 122/60 137/62 Pulse Oximetry 9 L 97 94 L 02/16/18 20:00 02/16/18 20:15 02/17/18 00:00 Temperature 98.4 F 98.3 F Pulse Rate 100 H 92 H 95 H Respiratory Rate 18 18 Blood Pressure 124/65 142/65 H Pulse Oximetry 94 L 95 02/17/18 00:15 02/17/18 04:00 02/17/18 04:10 Temperature 98.1 F Pulse Rate 91 H 94 H 87 Respiratory Rate 18 Blood Pressure 146/65 H Pulse Oximetry 95 Intake & Output 02/16/18 02/17/18 02/17/18 18:59 06:59 18:59 Intake Total 240 / 240 1160 / 1160 Output Total 400 / 400 Balance 240 / 240 760 / 760 Intake: IV 1000 / 1000 1/2 Normal Saline Inj 1,000 ML 1000 / 1000 @ 75 mls/hr IV.CONT .[id number] [facility] Rx#:[id number] Oral 240 / 240 160 / 160 Output: Urine 400 / 400 Other: # Voids 1 2 Date of Last Bowel Movement 02/16/18 02/16/18 Narrative: GENERAL: NAD, A&Ox3 HEAD: Normocephalic. NECK: Supple, trachea midline. No lymphadenopathy. EYES: No scleral icterus. No injection or drainage. CARDIOVASCULAR: Regular rate and rhythm without murmurs, gallops, or rubs. RESPIRATORY: Breath sounds equal bilaterally. No accessory muscle use. GASTROINTESTINAL: Abdomen soft, non-tender, nondistended. MUSCULOSKELETAL: No cyanosis, or edema. Decreased range of motion at left hip. SKIN: Warm and dry. NEURO: No focal neurological deficits. - Urinary Catheter Management Indwelling Urethral Catheter Cath placed during this visit: yes, but has since been removed by the nurse Reason for continuing: Decision to DC catheter Removal date: 02/15/18 Removal time: 18:52 Results - Labs CBC & Chem 7: 02/15/18 09:10 02/15/18 09:10 Assessment and Plan - Assessment (1) Hip fracture, left Code(s): S72.002A - Fracture of unspecified part of neck of left femur, initial encounter for closed fracture Status: Acute - Plan 87-year-old female admitted secondary to left hip fracture sustained in a fall Discontinue hydrocodone. Discontinue tramadol. Start Dilaudid p.o. for pain. Monitor for resolution of nausea and vomiting prior to discharge. IV hydration resume. Left hip fracture Status post surgical repair of left hip fracture Follow-up with orthopedic surgeon as an outpatient Plan to discharge to custodial facility once stabilized Continue as needed pain treatments, adjusted as above Continue physical therapy Hypertension Follow blood pressures Adjust treatments as needed Gastroesophageal reflux disease Continue omeprazole Hx of Breast Cancer Continue to follow as an outpatient DVT prophylaxis Per orthopedic recommendation
[2018-02-18] MEDS: HYDROmorphone PF Inj 2 MG/ML Vial IV.PUSH PRN ×4 (02:28→21:41)
[2018-02-18] MEDS: Sodium Chloride 0.45 % Inj 1,000 ML IV.CONT SCH ×3 (05:12→21:47)
[2018-02-18] MEDS: Calcium/Vitamin D 250/125 MG Tablet PO SCH (08:11)
--- NOTE | 2018-02-18 12:14 | P.PN ---
Subjective Interval history: Follow-up intractable nausea without any emesis/left hip repair February 18, 2018-patient seen and examined in the presence of her daughter, reports some improvement of nausea this a.m. Patient's daughter states when the pain is controlled patient has no nausea. Physical Exam Vital signs: Vital Signs 02/17/18 13:00 02/17/18 17:27 02/17/18 20:00 Temperature 98.6 F 98.2 F 99 F Pulse Rate 90 68 93 H Respiratory Rate 18 20 18 Blood Pressure 130/60 128/60 130/63 Pulse Oximetry 98 96 94 L 02/17/18 20:55 02/17/18 21:35 02/18/18 00:00 Temperature 98.1 F Pulse Rate 93 H Respiratory Rate 17 17 18 Blood Pressure 145/66 H Pulse Oximetry 94 L 02/18/18 04:00 02/18/18 08:00 Temperature 98.2 F 98.1 F Pulse Rate 91 H 94 H Respiratory Rate 18 20 Blood Pressure 139/67 158/67 H Pulse Oximetry 94 L 96 Intake & Output 02/17/18 02/18/18 02/18/18 18:59 06:59 18:59 Intake Total 820 / 820 1000 / 1000 Output Total 1200 / 1200 400 / 400 Balance -1200 / -1200 420 / 420 1000 / 1000 Weight 91 kg Intake: IV 1000 / 1000 1/2 Normal Saline Inj 1,000 ML 1000 / 1000 @ 75 mls/hr IV.CONT .[id number] [facility] Rx#:[id number] Oral 820 / 820 Output: Urine 1200 / 1200 400 / 400 Other: Date of Last Bowel Movement 02/16/18 02/16/18 Narrative: GENERAL: NAD SKIN: Warm and dry. HEAD: Atraumatic. Normocephalic. EYES: Pupils equal and round. No scleral icterus. No injection or drainage. ENT: No nasal bleeding or discharge. Mucous membranes pink and moist. NECK: Trachea midline. No JVD. CARDIOVASCULAR: Regular rate and rhythm. RESPIRATORY: No accessory muscle use. Clear to auscultation. Breath sounds equal bilaterally. GASTROINTESTINAL: Abdomen soft, non-tender, nondistended. Hepatic and splenic margins not palpable. MUSCULOSKELETAL: Extremities without clubbing, cyanosis, or edema. No obvious deformities. s/p Left Hip repair NEUROLOGICAL: Awake and alert. No obvious cranial nerve deficits. Motor grossly within normal limits. Five out of 5 muscle strength in the arms and legs. PSYCHIATRIC: Appropriate mood and affect; - Urinary Catheter Management Indwelling Urethral Catheter Cath placed during this visit: yes, but has since been removed by the nurse Reason for continuing: Decision to DC catheter Removal date: 02/15/18 Removal time: 18:52 Results - Labs CBC & Chem 7: 02/15/18 09:10 02/15/18 09:10 Assessment and Plan - Assessment (1) Hip fracture, left Code(s): S72.002A - Fracture of unspecified part of neck of left femur, initial encounter for closed fracture Status: Acute - Plan 87-year-old female with Left hip fracture Status post surgical repair of left hip fracture Follow-up with orthopedic surgeon as an outpatient Pain management accordingly Continue physical therapy Intractable nausea without any emesis Continue with IV fluid hydration, antiemetic and pain management Consult GI for evaluation Consider SBFT Hypertension Continue current treatment Gastroesophageal reflux disease Continue omeprazole Hx of Breast Cancer Continue to follow as an outpatient DVT prophylaxis Per orthopedic recommendation
[2018-02-19] MEDS: HYDROmorphone PF Inj 2 MG/ML Vial IV.PUSH PRN (06:32)
[2018-02-19] MEDS: Calcium/Vitamin D 250/125 MG Tablet PO SCH (08:37)
[2018-02-19] MEDS: Sodium Chloride 0.45 % Inj 1,000 ML IV.CONT SCH (11:19)
--- NOTE | 2018-02-19 12:02 | P.PN ---
Subjective Interval history: Follow-up intractable nausea without any emesis/left hip repair February 18, 2018-patient seen and examined in the presence of her daughter, reports some improvement of nausea this a.m. Patient's daughter states when the pain is controlled patient has no nausea. February 19, 2018-patient seen and examined, per nurse report she was able to tolerate p.o. this morning without any significant competition of nausea. Patient has not been working much with PT. Case discussed with patient's daughter Physical Exam Vital signs: Vital Signs 02/18/18 16:00 02/18/18 20:00 02/18/18 20:15 Temperature 99.1 F 99.0 F Pulse Rate 95 H 93 H Respiratory Rate 20 19 18 Blood Pressure 127/57 L 127/57 L Pulse Oximetry 97 97 02/18/18 21:32 02/19/18 00:00 02/19/18 04:00 Temperature 97.9 F 98.6 F Pulse Rate 93 H 90 Respiratory Rate 18 18 Blood Pressure 107/53 L 110/54 L Pulse Oximetry 96 97 96 02/19/18 08:00 Temperature 99.6 F Pulse Rate 101 H Respiratory Rate 17 Blood Pressure 127/55 L Pulse Oximetry 96 Intake & Output 02/18/18 02/19/18 02/19/18 18:59 06:59 18:59 Intake Total 1000 / 1000 442 / 442 1000 / 1000 Output Total 900 / 900 Balance 1000 / 1000 -458 / -458 1000 / 1000 Weight 91 kg Intake: IV 1000 / 1000 1000 / 1000 1/2 Normal Saline Inj 1,000 ML 1000 / 1000 1000 / 1000 @ 75 mls/hr IV.CONT .[id number] [facility] Rx#:[id number] Oral 442 / 442 Output: Urine 900 / 900 Other: # Incontinent Voids 2 Date of Last Bowel Movement 02/16/18 02/16/18 02/16/18 # Bowel Movements 0 - Urinary Catheter Management Indwelling Urethral Catheter Cath placed during this visit: yes, but has since been removed by the nurse Reason for continuing: Decision to DC catheter Removal date: 02/15/18 Removal time: 18:52 Results - Labs CBC & Chem 7: 02/15/18 09:10 02/15/18 09:10 Assessment and Plan - Assessment (1) Hip fracture, left Code(s): S72.002A - Fracture of unspecified part of neck of left femur, initial encounter for closed fracture Status: Acute - Plan 87-year-old female with Left hip fracture Status post surgical repair of left hip fracture Follow-up with orthopedic surgeon as an outpatient Pain management accordingly Continue physical therapy Intractable nausea without any emesis Continue with IV fluid hydration, antiemetic and pain management. Discontinue IV Dilaudid Awaiting for evaluation from patient's GI medical doctor Consider SBFT Hypertension Continue current treatment Gastroesophageal reflux disease Continue omeprazole Hx of Breast Cancer Continue to follow as an outpatient DVT prophylaxis Per orthopedic recommendation
[2018-02-19] MEDS: Acetaminophen 325 MG Tablet PO PRN (19:53)
[2018-02-20] MEDS: Acetaminophen 325 MG Tablet PO PRN ×4 (02:02→22:17)
[2018-02-20] MEDS: Sodium Chloride 0.45 % Inj 1,000 ML IV.CONT SCH ×2 (02:04→13:40)
[2018-02-20] MEDS: Calcium/Vitamin D 250/125 MG Tablet PO SCH (08:08)
--- NOTE | 2018-02-20 08:38 | P.PN ---
Subjective Interval history: Follow-up intractable nausea without any emesis/left hip repair February 18, 2018-patient seen and examined in the presence of her daughter, reports some improvement of nausea this a.m. Patient's daughter states when the pain is controlled patient has no nausea. February 19, 2018-patient seen and examined, per nurse report she was able to tolerate p.o. this morning without any significant competition of nausea. Patient has not been working much with PT. 02/20: Stable seen in her bedroom awaiting for GI specialist, discussed with patient and her Daughter in the room, Improving Nausea, no vomit or diarrhea. Physical Exam Vital signs: Vital Signs 02/19/18 12:00 02/19/18 16:00 02/19/18 19:29 Temperature 99.5 F 99.7 F H 98.4 F Pulse Rate 100 H 88 100 H Respiratory Rate 17 17 18 Blood Pressure 99/56 L 123/55 L 106/53 L Pulse Oximetry 93 L 98 98 02/19/18 20:00 02/19/18 20:23 02/19/18 23:38 Temperature 98.4 F Pulse Rate 88 91 H Respiratory Rate 18 18 Blood Pressure 103/49 L Pulse Oximetry 96 02/20/18 04:18 Temperature 98.3 F Pulse Rate 93 H Respiratory Rate 18 Blood Pressure 120/58 L Pulse Oximetry 92 L Intake & Output 02/19/18 02/20/18 02/20/18 18:59 06:59 18:59 Intake Total 1240 / 1240 480 / 480 Output Total 400 / 400 Balance 1240 / 1240 80 / 80 Weight 91 kg Intake: IV 1000 / 1000 1/2 Normal Saline Inj 1,000 ML 1000 / 1000 @ 75 mls/hr IV.CONT .[id number] [facility] Rx#:[id number] Oral 240 / 240 480 / 480 Output: Urine 400 / 400 Other: Date of Last Bowel Movement 02/16/18 02/19/18 # Bowel Movements 4 Narrative: GENERAL: Obesity, no acute distress. ENT: No nasal bleeding or discharge. Mucous membranes pink and moist. NECK: Trachea midline. No JVD. CARDIOVASCULAR: Regular rate and rhythm. RESPIRATORY: No accessory muscle use. Clear to auscultation. Breath sounds equal bilaterally. GASTROINTESTINAL: Abdomen soft, non-tender, nondistended. Hepatic and splenic margins not palpable. MUSCULOSKELETAL: Extremities without clubbing, cyanosis, or edema. No obvious deformities. s/p Left Hip repair NEUROLOGICAL: Awake and alert. PSYCHIATRIC: Appropriate mood and affect; - Urinary Catheter Management Indwelling Urethral Catheter Cath placed during this visit: yes, but has since been removed by the nurse Reason for continuing: Decision to DC catheter Removal date: 02/15/18 Removal time: 18:52 Results - Labs CBC & Chem 7: 02/15/18 09:10 02/15/18 09:10 Assessment and Plan - Assessment (1) Hip fracture, left Code(s): S72.002A - Fracture of unspecified part of neck of left femur, initial encounter for closed fracture Status: Acute - Plan 87-year-old female with Left hip fracture Status post surgical repair of left hip fracture Follow-up with orthopedic surgeon as an outpatient Pain management accordingly Continue physical therapy Intractable nausea without any emesis Continue with IV fluid hydration, antiemetic and pain management. Discontinue IV Dilaudid Awaiting for evaluation from patient's GI medical doctor Consider SBFT Hypertension Continue current treatment Gastroesophageal reflux disease Continue omeprazole Hx of Breast Cancer Continue to follow as an outpatient Obesity strongly recommended diet and exercise as outpatient. DVT prophylaxis Per orthopedic recommendation Code Status: Full code. Discussed Condition With: patient, Daughter, and nurse Adalberto Donnie. Discharge Planning: Awaiting for GI specialist consult for discharge.
--- NOTE | 2018-02-20 17:29 | XR ---
EXAM DATE: 02/20/2018 5:19 PM EDT AGE/SEX: 87 years / Female INDICATIONS: Abdomen distention CLINICAL DATA: This is the patient's subsequent encounter. Patient reports that signs and symptoms h ave been present for 3 days and indicates a pain score of 0/10. MEDICAL/SURGICAL HISTORY: None. . Left hip arthroplasty COMPARISON: [facility], CT ABDOMEN AND PELVIS W/O CONTRAST, 12/22/2017. . FINDINGS: Air and stool seen throughout the colon. No significantly dilated loops of bowel. No gross free air. No significant abnormal calcifications. Left femoral fixation hardware in place. CONCLUSION: 1. Nonobstructive bowel gas pattern. Electronically signed by: Brad Nelson MD 02/20/2018 5:28 PM EDT
--- NOTE | 2018-02-20 19:53 | MB ---
cc: Ld Manzano MD, Khawla ARNP DATE: 02/20/2018 REFERRING PHYSICIAN: RUPERT Kerr REASON FOR CONSULTATION: Intractable nausea. HISTORY OF PRESENT ILLNESS: This is a pleasant 87-year-old female who was admitted last week with a left hip fracture. The patient's daughters are with her at the bedside. They state she had a colonoscopy a week and a half ago with Dr. Diaz. She also had an upper endoscopy at the same time. They state she did well following her procedures, but several days later, she fell at home and broke her left hip. Since being in the hospital, she has had a lot of pain from her surgery and they state that she had about 6 days of nausea and mostly dry heaves. They believe that the nausea would get worse when the pain was severe and would go away when the pain was relieved. She has been moving her bowels. She was eating very poorly up until yesterday. They state that she is eating better the last 24 hours and today she has had no nausea. They do note that her abdomen seems more distended than usual, but she had a fairly good bowel movement earlier today. They state that she has not had any problems with nausea on a chronic basis before this fall and this is something new. No history of ulcer disease, but she does have a history of GERD. PAST MEDICAL HISTORY: Remarkable for a colon resection for a large polyp in 2005, history of breast cancer on the left side that was treated with a partial lumpectomy and radiation therapy in June 2017. She has a history of cataracts, carpal tunnel syndrome, right carotid endarterectomy. FAMILY HISTORY: Remarkable for breast cancer. Negative for colon cancer. SOCIAL HISTORY: The patient does not smoke, but was a former smoker. There is no significant alcohol history. MEDICATIONS: Acetaminophen p.r.n., calcium with vitamin D supplement, Vasotec 10 mg daily, ondansetron 4 mg p.r.n. for the nausea, pantoprazole 40 mg daily, potassium chloride 10 mEq daily, Compazine p.r.n., Flomax 0.4 mg daily. She was getting Dilaudid p.r.n., but this was discontinued yesterday. REVIEW OF SYSTEMS: The patient is hard of hearing. She does have a history of GERD, which has been controlled. No dysphagia. She has pain in her left hip, but it has gotten significantly better. No shortness of breath. The remainder of the 12-point review of systems was negative. She states she has had some muscle cramps since being in bed as she is used to getting up and moving around. The family states that she has not had much physical therapy because of her nausea. LABORATORY DATA: Somewhat old. Her labs are from 02/15/2018. She did have a chest x-ray on admission, but no abdominal imaging. PHYSICAL EXAMINATION: GENERAL: Reveals a well-developed female in no acute distress. VITAL SIGNS: Her blood pressure is 112/95, pulse is 95, respirations are 18 and nonlabored, temperature is 98 orally. HEENT: Sclerae are anicteric. LUNGS: Clear to auscultation. HEART: Sounds are a little rapid but regular. No murmur or gallop. ABDOMEN: Mildly distended but soft with no focal tenderness, no masses, no organomegaly. Bowel sounds are present. EXTREMITIES: She is wearing sequential YESIKA hose. SKIN: Warm and dry. NEUROLOGIC: She is alert and oriented with a pleasant and cooperative affect. IMPRESSION: 1. Postoperative nausea and dry heaves. 2. History of gastroesophageal reflux disease. 3. History of colon polyps. 4. History of breast cancer. 5. Recent left hip fracture, status post open reduction and internal fixation. PLAN: I discussed with the family and the patient that I suspect her nausea was related to either her pain or medications or possibly both. In any event, she seems to be doing much better today with no nausea and her pain has greatly subsided. The family is a little concerned about her abdomen being more protuberant than usual, but it appears benign on exam. She has been tolerating a regular diet today. We will obtain an abdominal x-ray to rule out any ileus or bowel obstruction and continue to follow her conservatively as she seems to be improving. We will also review her office records for the results of her recent EGD and colonoscopy. Thank you for this consult. MD PENELOPE Espino/niurka , 04:58 PM , 05:09 PM ANNEL
[2018-02-21] MEDS: Acetaminophen 325 MG Tablet PO PRN ×2 (05:14→13:25)
[2018-02-21] MEDS: Sodium Chloride 0.45 % Inj 1,000 ML IV.CONT SCH (05:16)
[2018-02-21] MEDS: Calcium/Vitamin D 250/125 MG Tablet PO SCH (08:32)
--- NOTE | 2018-02-21 08:51 | P.PNGI ---
Subjective Interval history: Daughter at bedside. Pt eating breakfast. No further nausea or belching. She feels much better and states hip pain under control. She hopes to be discharged today. Abd Xray benign. Physical Exam Vital signs: Vital Signs 02/20/18 09:17 02/20/18 12:00 02/20/18 16:00 Temperature 98 F 98.5 F Pulse Rate 95 H 101 H Respiratory Rate 18 18 Blood Pressure 112/95 H 143/63 H Pulse Oximetry 97 94 L 95 02/20/18 20:00 02/21/18 00:00 02/21/18 04:00 Temperature 98.1 F 98.2 F 97.1 F L Pulse Rate 95 H 85 88 Respiratory Rate 18 20 18 Blood Pressure 118/52 L 122/65 129/60 Pulse Oximetry 93 L 94 L 02/21/18 07:12 Temperature Pulse Rate Respiratory Rate Blood Pressure Pulse Oximetry 95 Intake & Output 02/20/18 02/21/18 02/21/18 18:59 06:59 18:59 Output Total 400 / 400 Balance -400 / -400 Weight 89.4 kg Output: Urine 400 / 400 Other: Date of Last Bowel Movement 02/20/18 02/21/18 02/21/18 # Bowel Movements 1 - Constitutional no acute distress - Routine Abdominal Exam Present: soft Comments: rounded but soft and nontender - Urinary Catheter Management Indwelling Urethral Catheter Cath placed during this visit: yes, but has since been removed by the nurse Reason for continuing: Decision to DC catheter Removal date: 02/15/18 Removal time: 18:52 Results - Labs CBC & Chem 7: 02/15/18 09:10 02/15/18 09:10 - Imaging Impressions Abdomen X-Ray 02/20/18 00:00 CONCLUSION: 1. Nonobstructive bowel gas pattern. Assessment and Plan (1) Post-operative nausea and vomiting Status: Resolved Code(s): R11.2 - Nausea with vomiting, unspecified; Z98.890 - Other specified postprocedural states - Plan No further testing or treatment recommended. She appears to be doing much better. Eating better and no UGI sxs. EGD and colonoscopy done by Dr Diaz 02/08/18 revealing a few small benign polyps. Will sign off.
[2018-02-21 11:37] VITALS: BP 134/79; PULSE 93; RESP 20; TEMP 97.7; O2SAT 90
--- NOTE | 2018-02-21 12:33 | P.PN ---
Subjective Interval history: Follow-up intractable nausea without any emesis/left hip repair February 18, 2018-patient seen and examined in the presence of her daughter, reports some improvement of nausea this a.m. Patient's daughter states when the pain is controlled patient has no nausea. February 19, 2018-patient seen and examined, per nurse report she was able to tolerate p.o. this morning without any significant competition of nausea. Patient has not been working much with PT. 02/20: Stable seen in her bedroom awaiting for GI specialist, discussed with patient and her Daughter in the room. 02/21: Seen in her bedroom, no nausea, vomit or diarrhea, GI Signed off the case. no nausea, vomit or diarrhea. Physical Exam Vital signs: Vital Signs 02/20/18 16:00 02/20/18 20:00 02/21/18 00:00 Temperature 98.5 F 98.1 F 98.2 F Pulse Rate 101 H 95 H 85 Respiratory Rate 18 18 20 Blood Pressure 143/63 H 118/52 L 122/65 Pulse Oximetry 95 93 L 94 L 02/21/18 04:00 02/21/18 07:12 02/21/18 08:00 Temperature 97.1 F L 97.7 F Pulse Rate 88 93 H Respiratory Rate 18 20 Blood Pressure 129/60 134/79 Pulse Oximetry 95 90 L Intake & Output 02/20/18 02/21/18 02/21/18 18:59 06:59 18:59 Output Total 400 / 400 Balance -400 / -400 Weight 89.4 kg Output: Urine 400 / 400 Other: Date of Last Bowel Movement 02/20/18 02/21/18 02/21/18 # Bowel Movements 1 1 Narrative: GENERAL: Obesity, no acute distress. ENT: No nasal bleeding or discharge. Mucous membranes pink and moist. NECK: Trachea midline. No JVD. CARDIOVASCULAR: Regular rate and rhythm. RESPIRATORY: No accessory muscle use. Clear to auscultation. Breath sounds equal bilaterally. GASTROINTESTINAL: Abdomen soft, non-tender, nondistended. Hepatic and splenic margins not palpable. MUSCULOSKELETAL: Extremities without clubbing, cyanosis, or edema. No obvious deformities. s/p Left Hip repair NEUROLOGICAL: Awake and alert. PSYCHIATRIC: Appropriate mood and affect; - Urinary Catheter Management Indwelling Urethral Catheter Cath placed during this visit: yes, but has since been removed by the nurse Reason for continuing: Decision to DC catheter Removal date: 02/15/18 Removal time: 18:52 Results - Labs CBC & Chem 7: 02/15/18 09:10 02/15/18 09:10 - Imaging Impressions Abdomen X-Ray 02/20/18 00:00 CONCLUSION: 1. Nonobstructive bowel gas pattern. Assessment and Plan - Assessment (1) Hip fracture, left Code(s): S72.002A - Fracture of unspecified part of neck of left femur, initial encounter for closed fracture Status: Acute - Plan 87-year-old female with Left hip fracture Status post surgical repair of left hip fracture Follow-up with orthopedic surgeon as an outpatient Pain management accordingly Continue physical therapy Intractable nausea without any emesis Continue with IV fluid hydration, antiemetic and pain management. Discontinue IV Dilaudid GI specialist signed off the case, okay for discharge now. Hypertension Continue current treatment Gastroesophageal reflux disease Continue omeprazole Hx of Breast Cancer Continue to follow as an outpatient Obesity strongly recommended diet and exercise as outpatient. DVT prophylaxis Xarelto Code Status: Full Code. Discussed Condition With: patient, her Daughter in the room, charge Nurse Discharge Planning: Discharge to SNF today.
--- NOTE | 2018-02-21 12:42 | P.DS ---
Date of admission: 02/12/18 18:34 Primary care physician: Do Arjun Crockett Attending physician on discharge: Miguel Meza Anticipated date of discharge: 02/21/18 Brief History from admission: Mrs. Li is an 87-year-old female who is admitted secondary to left hip fracture. She reports that she was walking around the house and tripped over something and fell. At baseline she has a previous fall 6 months ago. She has a past history of fall with right wrist fracture several years ago. Her baseline functioning is relatively stable ambulation, functional enough to have gardening as a hobby. When seen her pain is controlled. Other medical conditions are hypertension, gastroesophageal reflux disease, and a past history of breast cancer. She recently underwent a colonoscopy 4 days ago. She did not have any complications with anesthesia during her colonoscopy. Dr. Ureña (orthopedic surgeon) did surgery on her right wrist fracture and she requests him as an orthopedic surgeon consult. No other complaints at this time. DS: Diagnosis - Discharge Diagnosis (1) Hip fracture, left Status: Acute DS: Summary Hospital Course: Follow-up intractable nausea without any emesis/left hip repair February 18, 2018-patient seen and examined in the presence of her daughter, reports some improvement of nausea this a.m. Patient's daughter states when the pain is controlled patient has no nausea. February 19, 2018-patient seen and examined, per nurse report she was able to tolerate p.o. this morning without any significant competition of nausea. Patient has not been working much with PT. 02/20: Stable seen in her bedroom awaiting for GI specialist, discussed with patient and her Daughter in the room. 02/21: Seen in her bedroom, no nausea, vomit or diarrhea, GI Signed off the case. no nausea, vomit or diarrhea. - Urinary Catheter Management Indwelling Urethral Catheter Cath placed during this visit: yes, but has since been removed by the nurse Reason for continuing: Decision to DC catheter Removal date: 02/15/18 Removal time: 18:52 Assessment and Plan - Assessment (1) Hip fracture, left Code(s): S72.002A - Fracture of unspecified part of neck of left femur, initial encounter for closed fracture Status: Acute - Plan 87-year-old female with Left hip fracture Status post surgical repair of left hip fracture Follow-up with orthopedic surgeon as an outpatient Pain management accordingly Continue physical therapy Intractable nausea without any emesis Continue with IV fluid hydration, antiemetic and pain management. Discontinue IV Dilaudid GI specialist signed off the case, okay for discharge now. Hypertension Continue current treatment Gastroesophageal reflux disease Continue omeprazole Hx of Breast Cancer Continue to follow as an outpatient Obesity strongly recommended diet and exercise as outpatient. DVT prophylaxis Xarelto Code Status: Full Code. Discussed Condition With: patient, her Daughter in the room, charge Nurse Discharge Planning: Discharge to SNF today. - Time Spent with Patient Total time spent providing and/or coordinating discharge services: Greater than 30 minutes - Quality: VTE Deep Vein Thrombosis/Pulmonary Embolism Present on Admission: No Exam Vital signs: Vital Signs 02/20/18 16:00 02/20/18 20:00 02/21/18 00:00 Temperature 98.5 F 98.1 F 98.2 F Pulse Rate 101 H 95 H 85 Respiratory Rate 18 18 20 Blood Pressure 143/63 H 118/52 L 122/65 Pulse Oximetry 95 93 L 94 L 02/21/18 04:00 02/21/18 07:12 02/21/18 08:00 Temperature 97.1 F L 97.7 F Pulse Rate 88 93 H Respiratory Rate 18 20 Blood Pressure 129/60 134/79 Pulse Oximetry 95 90 L Intake & Output 02/20/18 02/21/18 02/21/18 18:59 06:59 18:59 Output Total 400 / 400 Balance -400 / -400 Weight 89.4 kg Output: Urine 400 / 400 Other: Date of Last Bowel Movement 02/20/18 02/21/18 02/21/18 # Bowel Movements 1 1 Narrative: GENERAL: Obesity, no acute distress. ENT: No nasal bleeding or discharge. Mucous membranes pink and moist. NECK: Trachea midline. No JVD. CARDIOVASCULAR: Regular rate and rhythm. RESPIRATORY: No accessory muscle use. Clear to auscultation. Breath sounds equal bilaterally. GASTROINTESTINAL: Abdomen soft, non-tender, nondistended. Hepatic and splenic margins not palpable. MUSCULOSKELETAL: Extremities without clubbing, cyanosis, or edema. No obvious deformities. s/p Left Hip repair NEUROLOGICAL: Awake and alert. PSYCHIATRIC: Appropriate mood and affect; Results Procedures completed during hospitalization: left Hip arthroplasty. - Impressions ITS Impressions Chest X-Ray 02/12/18 18:01 CONCLUSION: No acute cardiopulmonary disease demonstrated. Hip X-Ray 02/13/18 00:00 CONCLUSION: Intraoperative images. Abdomen X-Ray 02/20/18 00:00 CONCLUSION: 1. Nonobstructive bowel gas pattern. Discharge Plan - Discharge Disposition Patient Disposition: Discharge to SNF - Discharge Condition Condition: Stable - Discharge Order Discharge Orders: Discharge Order (Routine); Ordered 02/21/18 Ordered By: Miguel Meza Orthopedic Clear for Discharge (Routine); Ordered 02/16/18 Ordered By: Baltazar Ureña - Discharge Details Anticipated Discharge Date: 02/16/18 Discharge Comment: please have hospitalist complete DC orders including prescription for pain , xarelto etc - Physicians Team Primary Care Provider: Do Arjun Crockett Attending Provider: Miguel Meza Other Providers: Baltazar Ureña MD ; Tom Santos ; Tran Reilly,Kari ; Lidia Colorado MD
[2018-02-21] MEDS ORDERED: Rivaroxaban 10 MG Tablet PO SCH (14:00)
== END 2018-02-21 16:58 ==
LOC: NEPE 17:47 → NEDA 18:34 → N06 20:10 → NEDA 20:12 → N06 02-18 19:13
PROVIDERS: ADMIT Internal Medicine; ATTEND Internal Medicine

== ENCOUNTER 2018-04-06 07:00 | Inpatient (IN) ==
[2018-04-06] MEDS ORDERED: Sod Chloride 0.9% Inj 1,000 ML IV.SIG ONE (07:25)
[2018-04-06] MEDS ORDERED: Famotidine PF Inj 20 MG/2 ML Vial IV.PUSH ONE (07:29)
[2018-04-06] MEDS ORDERED: Dicyclomine Inj 20 MG/2 ML Ampul IM ONE (07:29)
--- NOTE | 2018-04-06 07:39 | ED ---
HPI General Chief complaint: Nausea/Vomiting/Diarrhea Stated complaint: abd pain/nauseated/dry heaving x 3 days Time Seen by Provider: 04/06/18 07:13 Source: patient and family Mode of arrival: wheelchair Limitations: no limitations History of Present Illness HPI narrative: Patient is an 87 year old female who comes in complaining of nausea and dry heaving. Her daughter states that she has been "declining" since the weekend. Per daughter, she had hip surgery 56 days ago and has had issues with nausea and dry heaving since. She says that since the weekend, she has been refusing to eat and she has not been drinking much because of nausea. She complains of a cough and some pain to the middle of her abdomen. Per daughter, the physical therapist noticed a drop in her oxygen saturation the other day when she came to work with her. She reports it was 88% and 90%. She has not had any fever or chills. She went to see her PMD earlier in the week who ordered blood tests that she has not been able to have done yet. She has not had any of her home medications in 2 days due to the nausea. Severity is moderate. Related Data Home Medications Medication Instructions Recorded Confirmed aspirin 81 mg PO DAILY 02/12/18 04/06/18 calcium carbonate-vitamin D3 1 tab PO BID 02/12/18 04/06/18 [Calcium 600 + D(3)] enalapril maleate 10 mg PO DAILY 02/12/18 04/06/18 mebqcwmy-tmo-LE-lycopen-lutein 1 tab PO DAILY 02/12/18 04/06/18 [Centrum Silver] omeprazole 40 mg PO DAILY 02/12/18 04/06/18 potassium chloride 10 meq PO DAILY 02/12/18 04/06/18 psyllium seed (sugar) [Metamucil 1 tbsp PO DIRECTED 02/12/18 04/06/18 (sugar)] furosemide 40 mg PO DAILY 04/06/18 04/06/18 sertraline 25 mg PO DAILY 04/06/18 04/06/18 sulfamethoxazole-trimethoprim 1 tab PO BID 04/06/18 04/06/18 [Bactrim] turmeric root extract 1 tab PO DAILY 04/06/18 04/06/18 verapamil 180 mg PO DAILY 04/06/18 04/06/18 Allergies Allergy/AdvReac Type Severity Reaction Status Date / Time alendronate sodium Allergy Severe Muscle Pain Verified 04/06/18 07:03 lidocaine Allergy Severe Hives Verified 04/06/18 07:03 anastrozole AdvReac Severe Nausea/Vomi Verified 04/06/18 07:03 ting alprazolam AdvReac Mild MOOD EFFECT Verified 04/06/18 07:03 brompheniramine AdvReac Mild Nausea Verified 04/06/18 07:03 clonazepam AdvReac Mild MOOD EFFECT Verified 04/06/18 07:03 clorazepate dipotassium AdvReac Mild MOOD EFFECT Verified 04/06/18 07:03 diazepam AdvReac Mild MOOD EFFECT Verified 04/06/18 07:03 lorazepam AdvReac Mild MOOD EFFECT Verified 04/06/18 07:03 midazolam AdvReac Mild MOOD EFFECT Verified 04/06/18 07:03 oxazepam AdvReac Mild MOOD EFFECT Verified 02/23/18 10:02 temazepam AdvReac Mild MOOD EFFECT Verified 02/23/18 09:59 Review of Systems ROS: all other systems reviewed are negative Constitutional Denies chills and Denies fever(s) ENT Denies dizziness Cardiovascular Denies chest pain Respiratory Reports cough Gastrointestinal Reports abdominal pain, Reports nausea and Reports vomiting Musculoskeletal Denies myalgias and Denies arthralgias Integumentary/Breasts Denies rash and Denies wounds Neurologic Denies focal weakness and Denies numbness PMFSH Medical History Medical History History of trigger finger (Acute) Hx of fracture of left hip (Acute) CKD (chronic kidney disease), stage III (Acute) Carpal tunnel syndrome of right wrist (Acute) Cataract (Acute) Surgical History Surgical History Hx of endarterectomy (Acute) History of colon surgery (Acute) History of colonoscopy (Acute) History of hemorrhoidectomy (Acute) History of lumpectomy (Acute) History of partial colectomy (Acute) History of partial mastectomy of left breast (Acute) History of right-sided carotid endarterectomy (Acute) Family History Family History Daughter Breast cancer Social History Social History Substance History: No History of Abuse Second Hand Smoke Exposure: No Smoking Status: Former smoker Tobacco Type: Cigarettes How Often Do You Have a Drink Containing Alcohol: Never Recent Travel in [facility] within the Last 8 Weeks: No Recent Out of Country Travel within the Last 8 Weeks: No Exam Narrative Exam Narrative: GENERAL: Awake and alert, obviously uncomfortable. SKIN: Focused skin assessment warm/dry. No wounds or signs of infection. HEAD: Atraumatic. Normocephalic. EYES: Pupils equal and round. No scleral icterus. ENT: Mucous membranes pink and moist. NECK: Trachea midline. No JVD. CARDIOVASCULAR: Regular rate and rhythm. No murmur appreciated. RESPIRATORY: No accessory muscle use. Clear to auscultation. Breath sounds equal bilaterally. GASTROINTESTINAL: Abdomen soft, non-tender, nondistended. MUSCULOSKELETAL: No obvious deformities. No clubbing. No cyanosis. No edema. NEUROLOGICAL: Awake and alert. No obvious cranial nerve deficits. Motor grossly within normal limits. Normal speech. PSYCHIATRIC: Appropriate mood and affect; insight and judgment normal. Course Initial Documented Vital Signs Temperature 98 F 04/06/18 07:03 Pulse Rate 118 H 04/06/18 07:03 Respiratory Rate 18 04/06/18 07:03 Blood Pressure 137/81 04/06/18 07:03 Pulse Oximetry 94 L 04/06/18 07:03 Last Documented Vital Signs Temperature 98 F 04/06/18 07:03 Pulse Rate 98 H 04/06/18 09:15 Respiratory Rate 20 04/06/18 09:15 Blood Pressure 133/57 L 04/06/18 09:15 Pulse Oximetry 95 04/06/18 09:15 Critical Care Time Critical Care Time: Yes Total Critical Care Time: 40 Attestation: Aggregate critical care time was 40 minutes. Time to perform other separately billable procedures was not included in the critical care time. My time did not include minutes spent treating any other patients simultaneously or on activities that did not directly contribute to the patient's treatment. The services I provided to this patient were to treat and/or prevent clinically significant deterioration that could result in: Serious illness or I provided critical care services requiring my management, as noted below: Chart data review, documentation time, medication orders and management, vital sign assessments/reviewing monitor data, ordering and reviewing lab tests, ordering and interpreting/reviewing x-rays and diagnostic studies, care of the patient and discussion of the patient with the admitting physicians. Medical Decision Making MDM Narrative Medical decision making narrative: Patient is an 87-year-old female who comes in with complaints of nausea and vomiting. She is also been coughing and daughter says that the physical therapist noted a drop in her oxygen saturation a few days ago. IV established, labs sent. Labs show troponin of 0.18. Patient given IV fluids, Zofran, Bentyl, famotidine. Chest x-ray performed shows no acute abnormalities. ECG shows a right bundle branch block. CTA of the chest performed shows extensive pulmonary embolus, including saddle emboli. Patient was started on heparin. I spoke with Dr. Winn, the automation software engineer who has conferred with the radiologist. They agree that patient should be given TPA. They are aware of her hip surgery and believe the benefits outweigh the risks of TPA at this time. He suggests bolus of 10mg and 40mg over 1 hour. He also says to continue heparin at 1000mg/ hour. This was ordered for the patient. I have discussed this plan including risks and benefits with the patient and her daughter. She will be admitted to the ICU. Medical Screen Exam Complete: Yes Emergency Medical Condition: Yes Differential Diagnosis Differential Diagnosis: Bowel obstruction versus ACS versus PE Medical Records Medical records reviewed: Yes I reviewed the patient's medical records. Lab Data Lab results reviewed: Yes I reviewed the patient's lab results. Result diagrams: 04/06/18 07:30 04/06/18 07:30 Lab Results 04/06/18 04/06/18 04/06/18 Range/Units 07:30 07:30 07:30 CBC w Diff Auto diff final WBC 13.8 H (4.0-11.0) th/mm3 RBC 4.74 (4.00-5.30) mil/mm3 Hgb 13.1 (11.6-15.3) gm/dL Hct 39.8 (35.0-46.0) % MCV 84.0 (80.0-100.0) fL MCH 27.6 (27.0-34.0) pg MCHC 32.9 (32.0-36.0) % RDW 16.4 (11.6-17.2) % Plt Count 388 (150-450) th/mm3 MPV 9.5 (7.0-11.0) fL Neut % (Auto) 65.9 (16.0-70.0) % Lymph % (Auto) 24.3 (9.0-44.0) % [place] % (Auto) 7.6 (0.0-8.0) % Eos % (Auto) 1.2 (0.0-4.0) % Baso % (Auto) 1.0 (0.0-2.0) % Neut # (Auto) 9.0 H (1.8-7.7) th/mm3 Lymph # (Auto) 3.4 (1.0-4.8) th/mm3 [place] # (Auto) 1.1 H (0.0-0.9) th/mm3 Eos # (Auto) 0.2 (0.0-0.4) th/mm3 Baso # (Auto) 0.1 (0.0-0.2) th/mm3 WBC Differential . Differential Comment . PT 10.5 (9.8-11.6) sec INR 1.0 Ratio APTT 23.1 L (24.3-30.1) sec Sodium 139 (136-145) meq/L Potassium 3.7 (3.5-5.1) meq/L Chloride 105 (98-107) meq/L Carbon Dioxide 22.9 (21.0-32.0) meq/L Anion Gap 11 (5-15) meq/L BUN 21 H (7-18) mg/dL Creatinine 1.20 H (0.50-1.00) mg/dL Estimated GFR 43 L (>89) mL/min Random Glucose 139 H (74-106) mg/dL Lactic Acid (0.4-2.0) mmol/L Calcium 8.7 (8.5-10.1) mg/dL Total Bilirubin 0.6 (0.2-1.0) mg/dL AST 22 (15-37) U/L ALT 16 (10-53) U/L Alkaline Phosphatase 135 H (45-117) U/L Total Creatine Kinase 47 (26-192) U/L Troponin I 0.18 H (0.02-0.05) ng/mL Total Protein 7.8 (6.4-8.2) g/dL Albumin 3.7 (3.4-5.0) g/dL Lipase 78 (73-393) U/L 04/06/18 Range/Units 07:34 CBC w Diff WBC (4.0-11.0) th/mm3 RBC (4.00-5.30) mil/mm3 Hgb (11.6-15.3) gm/dL Hct (35.0-46.0) % MCV (80.0-100.0) fL MCH (27.0-34.0) pg MCHC (32.0-36.0) % RDW (11.6-17.2) % Plt Count (150-450) th/mm3 MPV (7.0-11.0) fL Neut % (Auto) (16.0-70.0) % Lymph % (Auto) (9.0-44.0) % [place] % (Auto) (0.0-8.0) % Eos % (Auto) (0.0-4.0) % Baso % (Auto) (0.0-2.0) % Neut # (Auto) (1.8-7.7) th/mm3 Lymph # (Auto) (1.0-4.8) th/mm3 [place] # (Auto) (0.0-0.9) th/mm3 Eos # (Auto) (0.0-0.4) th/mm3 Baso # (Auto) (0.0-0.2) th/mm3 WBC Differential Differential Comment PT (9.8-11.6) sec INR Ratio APTT (24.3-30.1) sec Sodium (136-145) meq/L Potassium (3.5-5.1) meq/L Chloride (98-107) meq/L Carbon Dioxide (21.0-32.0) meq/L Anion Gap (5-15) meq/L BUN (7-18) mg/dL Creatinine (0.50-1.00) mg/dL Estimated GFR (>89) mL/min Random Glucose (74-106) mg/dL Lactic Acid 2.3 H (0.4-2.0) mmol/L Calcium (8.5-10.1) mg/dL Total Bilirubin (0.2-1.0) mg/dL AST (15-37) U/L ALT (10-53) U/L Alkaline Phosphatase (45-117) U/L Total Creatine Kinase (26-192) U/L Troponin I (0.02-0.05) ng/mL Total Protein (6.4-8.2) g/dL Albumin (3.4-5.0) g/dL Lipase (73-393) U/L Imaging Data Radiologist's impression: Abdomen/Pelvis CT 04/06/18 07:25 CONCLUSION: 1. No acute CT abnormality in the abdomen or pelvis. 2. Stable 1.7 cm cystic mass in the distal body/tail of the pancreas. Endoscopic ultrasound with fine-needle aspiration may be performed although more typically performed in faster growing cysts. Consider follow-up examination in 6 months. 3. 1.5 cm indeterminate cystic lesion near the superior pole of the right kidney. This can also be further evaluated on follow-up examination performed from the pancreatic lesion. 4. Ancillary findings include colonic diverticulosis, very small fat- containing periumbilical anterior abdominal wall hernia, focal fat near the falciform ligament, and degenerative spondylosis of the lumbar spine. Chest CTA 04/06/18 07:25 CONCLUSION: 1. Extensive pulmonary embolus. There is bilateral embolic disease. 2. COPD changes. 3. 1.7 cm cystic lesion in the tail of pancreas incompletely evaluated. Chest X-Ray 04/06/18 07:25 CONCLUSION: 1. No acute abnormality or significant interval change. ECG Data EKG Prior to Arrival: No Attestation: I personally reviewed and interpreted this ECG as follows: Interpretation: ECG shows sinus rhythm at a rate of 98, incomplete right bundle branch block Discharge Plan Discharge Disposition Patient Disposition: 30 Still Patient Discharge Condition Condition: Stable Discharge Details Diagnosis: Acute pulmonary embolism, Elevated troponin, Nausea & vomiting Physicians Team ED Provider: Isela Young Primary Care Provider: Do Arjun Crockett Attending Provider: Philipp Winn Discharge Interventions Interventions: Vital Signs Last Done: 04/06/18 09:15 Status ED Status: Admitted Patient
[2018-04-06 07:46] LABS: Baso # (Auto) 0.1 th/mm3 (0.0-0.2); Eos # (Auto) 0.2 th/mm3 (0.0-0.4); Eos % (Auto) 1.2 % (0.0-4.0); Hematocrit 39.8 % (35.0-46.0); Hemoglobin 13.1 gm/dL (11.6-15.3); Lymph # (Auto) 3.4 th/mm3 (1.0-4.8); Lymph % (Auto) 24.3 % (9.0-44.0); Mean Corpuscular HGB Conc 32.9 % (32.0-36.0); Mean Corpuscular Hemoglobin 27.6 pg (27.0-34.0); Mean Platelet Volume 9.5 fL (7.0-11.0); Mono # (Auto) 1.1 th/mm3 (0.0-0.9); Mono % (Auto) 7.6 % (0.0-8.0); Neut % (Auto) 65.9 % (16.0-70.0); Platelet Count 388 th/mm3 (150-450); Red Blood Count 4.74 mil/mm3 (4.00-5.30); Red Cell Distribution Width 16.4 % (11.6-17.2); White Blood Count 13.8 th/mm3 (4.0-11.0)
--- NOTE | 2018-04-06 07:46 | XR ---
EXAM DATE: 04/06/2018 7:25 AM EDT AGE/SEX: 87 years / Female INDICATIONS: Cough, nausea. CLINICAL DATA: This is the patient's initial encounter. Patient reports that signs and symptoms have been present for 1 week and indicates a pain score of 0/10. MEDICAL/SURGICAL HISTORY: Hypertension. None. COMPARISON: [facility] [place], CHEST 1V SINGLE AP, 02/12/2018. . FINDINGS: No new focal pleural or parenchymal opacities. The cardiomediastinal contours are unremarkable. Osse ous structures are intact. CONCLUSION: 1. No acute abnormality or significant interval change. Electronically signed by: Brad Nelson MD 04/06/2018 7:45 AM EDT
[2018-04-06 07:59] LABS: Activated Partial Thrombo Time 23.1 sec (24.3-30.1); Prothrombin Time 10.5 sec (9.8-11.6)
[2018-04-06 08:02] LABS: Chloride 105 meq/L (98-107); Potassium 3.7 meq/L (3.5-5.1); Sodium 139 meq/L (136-145)
[2018-04-06 08:04] LABS: Calcium 8.7 mg/dL (8.5-10.1)
[2018-04-06 08:05] LABS: Albumin 3.7 g/dL (3.4-5.0); Anion Gap 11 meq/L (5-15); Blood Urea Nitrogen 21 mg/dL (7-18); Carbon Dioxide 22.9 meq/L (21.0-32.0); Glucose,Random 139 mg/dL (74-106)
[2018-04-06 08:08] LABS: Alanine Aminotransferase 16 U/L (10-53); Aspartate Aminotransferase 22 U/L (15-37); Glomerular Filtration Rate 43 mL/min (>89)
[2018-04-06 08:09] LABS: Total Protein 7.8 g/dL (6.4-8.2)
[2018-04-06 08:11] LABS: Alkaline Phosphatase 135 U/L (45-117)
[2018-04-06 08:13] LABS: Troponin I 0.18 ng/mL (0.02-0.05)
[2018-04-06 08:14] LABS: Creatine Kinase 47 U/L (26-192)
[2018-04-06 08:21] LABS: Lipase 78 U/L (73-393)
--- NOTE | 2018-04-06 08:55 | CT ---
EXAM DATE: 04/06/2018 7:52 AM EDT AGE/SEX: 87 years / Female INDICATIONS: Cough. Dry heaving. Decreased oxygen saturation. CLINICAL DATA: This is the patient's initial encounter. Patient reports that signs and symptoms have been present for 4 - 6 days and indicates a pain score of 0/10. MEDICAL/SURGICAL HISTORY: Renal failure, chronic. Hemorrhoidectomy. Carotid endarterectomy. Colon resection. Left mastectomy. RADIATION DOSE: 14.74 CTDI (mGy) COMPARISON: [facility], CT CHEST W/O CONTRAST, 12/30/2017. . TECHNIQUE: Volumetric scanning was performed using a multi-row detector CT scanner during bolus infu oleksandr of 75 ml Omnipaque 350 (iohexol) nonionic water-soluble contrast as a cumulative dose for multi ple exams. The data was post processed with a variety of visualization algorithms including full volu me maximum intensity projection and sliding thin slab reformation. Using automated exposure control and adjustment of the mA and/or kV according to patient size, radiation dose was kept as low as reaso nably achievable to obtain optimal diagnostic quality images. DICOM format image data is available e lectronically for review and comparison. FINDINGS: The examination is of excellent diagnostic quality. There is extensive saddle embolic disease involvi ng both pulmonary arteries. The heart is normal in size. There is no pericardial pleural effusion. No hilar or mediastinal adenop athy is seen. The visualized pulmonary parenchyma demonstrates COPD changes but is otherwise clear. No pleural effu oleksandr is present. There are degenerative changes within the thoracic spine. The limited portions of upper abdomen visualized demonstrate a 1.7 cm cystic lesion in the tail of th e pancreas. This is only partially visualized on the last image of the examination. CONCLUSION: 1. Extensive pulmonary embolus. There is bilateral embolic disease. 2. COPD changes. 3. 1.7 cm cystic lesion in the tail of pancreas incompletely evaluated. Electronically signed by: Ty Magallanes MD 04/06/2018 8:53 AM EDT
[2018-04-06] MEDS ORDERED: Heparin 10,000 UNITS/10 ML Vial (for IV use) IV.PUSH STA (09:01)
[2018-04-06] MEDS ORDERED: Heparin Drip 25,000 UNIT/250 ML BAG IV.CONT PRN (09:01)
--- NOTE | 2018-04-06 09:04 | CT ---
EXAM DATE: 04/06/2018 7:52 AM EDT AGE/SEX: 87 years / Female INDICATIONS: Mid abdominal pain, nausea and dry heaving. CLINICAL DATA: This is the patient's initial encounter. Patient reports that signs and symptoms have been present for 3 days and indicates a pain score of 2/10. MEDICAL/SURGICAL HISTORY: Renal failure, chronic. Carotid endarterectomy. Colon resection. He morrhoidectomy. Left mastectomy. ORAL CONTRAST: No oral contrast ingested. RADIATION DOSE: 19.41 CTDI (mGy) COMPARISON: [facility], CT ABDOMEN AND PELVIS W/O CONTRAST, 12/22/2017. . TECHNIQUE: Multiple contiguous axial images were obtained through the abdomen and pelvis following b olus infusion of 75 ml Omnipaque 350 (iohexol) nonionic water-soluble contrast as a cumulative dose for multiple exams. No oral contrast ingested. Using automated exposure control and adjustment of t he mA and/or kV according to patient size, radiation dose was kept as low as reasonably achievable to obtain optimal diagnostic quality images. DICOM format image data is available electronically for r eview and comparison. FINDINGS: LUNGS: Please see CT chest report. LIVER: Ill-defined hypodensity near the falciform ligament likely reflects focal fat. Liver is other najera unremarkable. Gallbladder is mildly distended but otherwise unremarkable by CT. SPLEEN: Homogeneous density without enlargement. PANCREAS: There is a 1.7 cm hypodense fluid density cystic mass in the distal body/tail of the pancr eas. Pancreas otherwise appears unremarkable. No pancreatic ductal dilatation or tail atrophy. KIDNEYS: Kidneys demonstrate symmetrical enhancement without evidence for hydronephrosis. Stable pun ctate calyceal calcification in the anterior mid right kidney. There is a 2.9 cm cyst in the anterior inferior pole of the left kidney. There is a stable 1.5 cm indeterminate density cystic lesion near the superior pole of the right kidney. Multiple additional subcentimeter bilateral hypodense renal le sions are too small to fully characterize. ADRENAL GLANDS: Unremarkable. AORTA: Diffuse atherosclerotic calcifications. Nonaneurysmal. BOWEL/MESENTERY: Moderate sigmoid diverticulosis with scattered colonic diverticula. No significant inflammatory change to suggest diverticulitis. Bowel loops are normal in caliber without evidence for obstruction. No free fluid or drainable fluid collections. No pneumatosis or free air. ABDOMINAL WALL: Very small fat-containing periumbilical anterior abdominal wall hernia. RETROPERITONEUM: No evidence of adenopathy in the retrocrural, para-aortic, or deep pelvic regions. BLADDER: Contours are smooth. REPRODUCTIVE: No abnormal masses or calcifications seen. BONY STRUCTURES: Left femoral fixation hardware in place. Degenerative spondylosis of the lumbar spi ne. CONCLUSION: 1. No acute CT abnormality in the abdomen or pelvis. 2. Stable 1.7 cm cystic mass in the distal body/tail of the pancreas. Endoscopic ultrasound with fin e-needle aspiration may be performed although more typically performed in faster growing cysts. Consi torres follow-up examination in 6 months. 3. 1.5 cm indeterminate cystic lesion near the superior pole of the right kidney. This can also be f urther evaluated on follow-up examination performed from the pancreatic lesion. 4. Ancillary findings include colonic diverticulosis, very small fat-containing periumbilical anter ior abdominal wall hernia, focal fat near the falciform ligament, and degenerative spondylosis of the lumbar spine. Electronically signed by: Brad Nelson MD 04/06/2018 9:03 AM EDT
[2018-04-06] MEDS: Sod Chloride 0.9% Inj 1,000 ML IV.CONT SCH ×2 (09:34→23:19)
[2018-04-06] MEDS ORDERED: Alteplase Bolus 9 MG/9 ML Syringe IV.PUSH ONE (09:42)
[2018-04-06] MEDS ORDERED: Alteplase Drip 40 MG in Syringe/Bag 1 EACH IV.SIG ONE (09:42)
[2018-04-06 10:22] LABS: Bilirubin,Urine Negative (Negative); Clarity,Urine Clear (Clear); Color,Urine Yellow (Yellw/Straw); Glucose,Urine (UA) Negative (Negative); Leukocyte Esterase,Urine Negative (Negative); Nitrite,Urine Negative (Negative); PH,Urine 5.5 (5.0-8.5); Specific Gravity,Urine 1.015 (1.002-1.035); Urobilinogen,Urine 0.2 mg/dL (Less than 2)
[2018-04-06 10:28] LABS: RBC,Urine 0-3 /hpf (0-3); WBC,Urine 0-5 /hpf (0-5)
--- NOTE | 2018-04-06 11:40 | P.HPCC ---
History of Present Illness Primary Care Physician: Do Arjnu Crockett Chief Complaint: Shortness of breath, dry heaving History of Present Illness: Patient is 87-year-old female with past medical history significant for breast cancer, CKD, recent hip fracture status post ORIF 2 months ago 2017, who presented to the emergency department with complaints of nausea and dry heaving. According to the daughter patient had loss of appetite and had been complaining a cough and abdominal pain. Oxygen saturation at home yesterday was 88% -90%. She has not had any of her home medications in 2 days due to the nausea. According to the previous discharge notes after ORIF L hip, patient was placed on anticoagulation for 4 weeks post hip replacement. ER workup included CT pulmonary angiogram due to hypoxia and shortness of breath, and CT abdomen pelvis. This showed extensive bilateral pulmonary embolus. I was contacted for ICU admission. With significant clot burden case was discussed with invasive radiology Dr. Jonathan Magallanes. It was my opinion and he agreed that patient will benefit from TPA due to extensive clot burden. There was also troponin elevation indicating right heart strain. Echo is pending. I discussed with Dr. Young in [place] ED, and patient was administered TPA 10 mg bolus followed by 40 mg infusion over 1 hour for a total dose of 50 mg IV per MOPETT trial recommendations. Patient was already started on IV heparin infusion and this will be continued at thousand units per hour for 6 hours post TPA and then will be titrated according to PE protocol. Risk of bleeding from her left hip repair done almost 2 months ago is minimal and benefit outweighs risks in this case. I evaluated patient in [facility] ICU, s/p TPA. Her shortness of breath and dry heaves are improving. My bedside echo exam did not show RV dysfunction. - Diagnosis (1) Acute pulmonary embolism (2) Elevated troponin (3) Hypoxia (4) Lactic acidosis (5) Leukocytosis (6) Breast cancer (7) Hip fracture, left (8) CKD (chronic kidney disease) Inpatient Certification: I certify that the inpatient services were ordered in accordance with Medicare regulations governing the order. This includes certification that hospital inpatient services are reasonable and necessary and in the case of services not specified as inpatient-only under 42 CFR 419.22(n), that they are appropriately provided as inpatient services in accordance to with the 2-midnight benchmark under 43 CFR 412.3(e) Estimated Total Length of Stay (Days): 5 Plans for Post Hospital Care: Not yet determined Review of Systems All other systems reviewed negative except as stated [facility] - History History Provided By: Patient - Medical History Medical History: Medical History (Last Updated 04/06/18 @ 07:40 by Nivia Padilla RN) History of trigger finger Hx of fracture of left hip CKD (chronic kidney disease), stage III Carpal tunnel syndrome of right wrist Cataract - Surgical History Surgical History: Surgical History (Last Updated 04/06/18 @ 07:40 by Nivia Padilla RN) Hx of endarterectomy History of colon surgery History of colonoscopy History of hemorrhoidectomy History of lumpectomy History of partial colectomy History of partial mastectomy of left breast History of right-sided carotid endarterectomy - Family History Family History: Family History (Last Reviewed 04/06/18 @ 07:38 by Isela Young MD) Daughter Breast cancer - Tobacco History Second Hand Smoke Exposure: No Tobacco Use In Past 30 Days: No Smoking Status: Former smoker Tobacco Type: Cigarettes - Alcohol History How Often Do You Have a Drink Containing Alcohol: Never - Substance Use History Substance History: No History of Abuse - Travel History Recent Travel in the [place] Within the Last 8 Weeks: No Recent Travel Out of the Country Within the Last 8 Weeks: No - Immunization History Tetanus Immunization: <5 Years Tetanus Immunization Year if Known: 2017 Hx Influenza Vaccine This Season: No Medications and Allergies Active Medications: Active Medications Acetaminophen (Tylenol) 650 mg PO Q6H PRN PRN Reason: PAIN 1-10 AND/OR FEVER >101F Albuterol (Duoneb Neb (Prn)) 1 ampul NEB Q4HR NEB PRN PRN Reason: SHORTNESS OF BREATH Albuterol (Duoneb Neb (Omar)) 1 ampul NEB Q6HR NEB OMAR Last Admin: 04/06/18 10:14 Dose: 1 ampul Chlorhexidine Gluconate (Chlorhexidine 2% Cloth) 3 pack TOPICAL DAILY@0400 OMAR Stop: 04/12/18 03:59 Chlorhexidine Gluconate (Chlorhexidine 2% Cloth) 3 pack TOPICAL DAILY@0400 PRN PRN Reason: Extra cloth needed Stop: 04/12/18 03:59 Famotidine (Pepcid) 10 mg NG/OG BID OMAR Heparin Sodium/Dextrose (Heparin/D5w 25,000 U/250 Ml) 25,000 unit in 250 mls @ 0 mls/hr IV.CONT TITRATE PRN; Protocol PRN Reason: Per Protocol Last Titration: 04/06/18 11:22 Dose: 1,000 units/hr, 10 mls/hr Sodium Chloride (Ns Inj) 1,000 mls @ 75 mls/hr IV.CONT .[id number] OMAR Last Infusion: 04/06/18 11:21 Dose: 75 mls/hr Sodium Chloride (Ns Flush) 2 ml IV.FLUSH PRN PRN PRN Reason: FLUSH AFTER USING IV ACCESS Allergies Allergy/AdvReac Type Severity Reaction Status Date / Time alendronate sodium Allergy Severe Muscle Pain Verified 04/06/18 07:03 lidocaine Allergy Severe Hives Verified 04/06/18 07:03 anastrozole AdvReac Severe Nausea/Vomi Verified 04/06/18 07:03 ting alprazolam AdvReac Mild MOOD EFFECT Verified 04/06/18 07:03 brompheniramine AdvReac Mild Nausea Verified 04/06/18 07:03 clonazepam AdvReac Mild MOOD EFFECT Verified 04/06/18 07:03 clorazepate dipotassium AdvReac Mild MOOD EFFECT Verified 04/06/18 07:03 diazepam AdvReac Mild MOOD EFFECT Verified 04/06/18 07:03 lorazepam AdvReac Mild MOOD EFFECT Verified 04/06/18 07:03 midazolam AdvReac Mild MOOD EFFECT Verified 04/06/18 07:03 oxazepam AdvReac Mild MOOD EFFECT Verified 02/23/18 10:02 temazepam AdvReac Mild MOOD EFFECT Verified 02/23/18 09:59 Home Medications Medication Instructions Recorded Confirmed Type aspirin 81 mg PO DAILY 02/12/18 04/06/18 History calcium carbonate-vitamin D3 1 tab PO BID 02/12/18 04/06/18 History [Calcium 600 + D(3)] enalapril maleate 10 mg PO DAILY 02/12/18 04/06/18 History jtqjrqdj-ghm-NI-lycopen-lutein 1 tab PO DAILY 02/12/18 04/06/18 History [Centrum Silver] omeprazole 40 mg PO DAILY 02/12/18 04/06/18 History potassium chloride 10 meq PO DAILY 02/12/18 04/06/18 History psyllium seed (sugar) [Metamucil 1 tbsp PO DIRECTED 02/12/18 04/06/18 History (sugar)] furosemide 40 mg PO DAILY 04/06/18 04/06/18 History sertraline 25 mg PO DAILY 04/06/18 04/06/18 History sulfamethoxazole-trimethoprim 1 tab PO BID 04/06/18 04/06/18 History [Bactrim] turmeric root extract 1 tab PO DAILY 04/06/18 04/06/18 History verapamil 180 mg PO DAILY 04/06/18 04/06/18 History Results - Labs CBC & Chem 7: 04/06/18 07:30 04/06/18 07:30 Labs: Short CBC 04/06/18 Range/Units 07:30 WBC 13.8 H (4.0-11.0) th/mm3 Hgb 13.1 (11.6-15.3) gm/dL Hct 39.8 (35.0-46.0) % Plt Count 388 (150-450) th/mm3 BMP 04/06/18 07:30 Sodium 139 Potassium 3.7 Chloride 105 Carbon Dioxide 22.9 BUN 21 H Creatinine 1.20 H Calcium 8.7 Cardiac Enzymes 04/06/18 Range/Units 07:30 Total Creatine Kinase 47 (26-192) U/L Troponin I 0.18 H (0.02-0.05) ng/mL Liver Function 04/06/18 Range/Units 07:30 Total Bilirubin 0.6 (0.2-1.0) mg/dL AST 22 (15-37) U/L ALT 16 (10-53) U/L Alkaline Phosphatase 135 H (45-117) U/L Albumin 3.7 (3.4-5.0) g/dL Urine 04/06/18 Range/Units 10:10 Urine Color Yellow (Yellw/Straw) Urine Clarity Clear (Clear) Urine pH 5.5 (5.0-8.5) Ur Specific [place] 1.015 (1.002-1.035) Urine Protein Negative (Neg-Trace) mg/dL Urine Glucose (UA) Negative (Negative) mg/dL - Imaging Impressions Abdomen/Pelvis CT 04/06/18 07:25 CONCLUSION: 1. No acute CT abnormality in the abdomen or pelvis. 2. Stable 1.7 cm cystic mass in the distal body/tail of the pancreas. Endoscopic ultrasound with fine-needle aspiration may be performed although more typically performed in faster growing cysts. Consider follow-up examination in 6 months. 3. 1.5 cm indeterminate cystic lesion near the superior pole of the right kidney. This can also be further evaluated on follow-up examination performed from the pancreatic lesion. 4. Ancillary findings include colonic diverticulosis, very small fat- containing periumbilical anterior abdominal wall hernia, focal fat near the falciform ligament, and degenerative spondylosis of the lumbar spine. Chest CTA 04/06/18 07:25 CONCLUSION: 1. Extensive pulmonary embolus. There is bilateral embolic disease. 2. COPD changes. 3. 1.7 cm cystic lesion in the tail of pancreas incompletely evaluated. Chest X-Ray 04/06/18 07:25 CONCLUSION: 1. No acute abnormality or significant interval change. Exam Vital signs: Vital Signs 04/06/18 07:03 04/06/18 07:37 04/06/18 09:15 Temperature 98 F Pulse Rate 118 H 95 H 98 H Respiratory Rate 18 20 20 Blood Pressure 137/81 107/62 133/57 L Pulse Oximetry 94 L 97 95 04/06/18 10:13 04/06/18 10:16 04/06/18 10:24 Temperature 98.1 F Pulse Rate 92 H 97 H Respiratory Rate 20 24 Blood Pressure 135/63 Pulse Oximetry 96 97 96 04/06/18 10:30 04/06/18 10:46 04/06/18 11:00 Temperature Pulse Rate 96 H 96 H 94 H Respiratory Rate 20 20 20 Blood Pressure 122/54 L 115/52 L 121/56 L Pulse Oximetry 95 95 95 Intake & Output 04/05/18 04/06/18 04/06/18 18:59 06:59 18:59 Intake Total 1210 / 1210 Balance 1210 / 1210 Weight 79 kg Intake: IV 1210 / 1210 Heparin/D5W 25,000 U/250 mL 25, 20 / 20 000 unit In 250 ml @ Per Protocol IV.CONT TITRATE PRN Rx #:[id number] NS Inj 1,000 ML @ 75 mls/hr IV. 150 / 150 CONT .[id number] OMAR Rx#: [id number] Activase Drip 40 MG In Bag/ 40 / 40 Syringe 1 EACH @ 40 mls/hr IV. SIG ONCE ONE Rx#:[id number] NS Inj 1,000 ML @ Wide Open IV. 1000 / 1000 SIG BOLUS ONE Rx#:[id number] Narrative: GENERAL: Awake and alert, mildly distressed anxious. SKIN: warm/dry. No wounds or signs of infection. Left hip incision appears well -healed HEAD: Atraumatic. Normocephalic. EYES: Pupils equal and round. No scleral icterus. ENT: Mucous membranes pink and moist. NECK: Trachea midline. No JVD. CHEST: Well-healed scar on left breast from lumpectomy CARDIOVASCULAR: Regular rate and rhythm. No murmur appreciated. Bedside echo performed after TPA does not show evidence of RV strain RESPIRATORY: No accessory muscle use. Clear to auscultation. Breath sounds equal bilaterally. GASTROINTESTINAL: Abdomen soft, non-tender, nondistended. MUSCULOSKELETAL: No obvious deformities. No clubbing. No cyanosis. No edema. Well-healed left hip scar NEUROLOGICAL: Awake and alert. No obvious cranial nerve deficits. Motor grossly within normal limits. Normal speech. Septic Shock Reassessment Septic shock perfusion: reassessment completed Caprini VTE Risk Assessment Caprini VTE Risk Assessment: Moderate/High Risk (score >= 2) Caprini Risk Assessment Model: Point Value = 1 Point Value = 2 Point Value = 3 Point Value = 5 Age 41-60 Minor surgery BMI > 25 kg/m2 Swollen legs Varicose veins or History of unexplained or recurrent spontaneous Oral contraceptives or hormone replacement Sepsis (< 1 month) Serious lung disease, including pneumonia (< 1 month) Abnormal pulmonary function Acute myocardial infarction Congestive heart failure (< 1 month) History of inflammatory bowel disease Medical patient at bed rest Age 61-74 Arthroscopic surgery Major open surgery (> 45 min) Laparoscopic surgery (> 45 min) Malignancy Confined to bed (> 72 hours) Immobilizing plaster cast Central venous access Age >= 75 History of VTE Family history of VTE Factor V Leiden Prothrombin [id number] Lupus anticoagulant Anticardiolipin antibodies Elevated serum homocysteine Heparin-induced thrombocytopenia Other congenital or acquired thrombophilia Stroke (< 1 month) Elective arthroplasty Hip, pelvis, or leg fracture Acute spinal cord injury (< 1 month) Prophylaxis Regimen: Total Risk Factor Score Risk Level Prophylaxis Regimen 0-1 Low Early ambulation 2 Moderate Order ONE of the following: *Sequential Compression Device (SCD) *Heparin 5000 units SQ BID 3-4 Higher Order ONE of the following medications: *Heparin 5000 units SQ TID *Enoxaparin/Lovenox 40 mg SQ daily (WT < 150 kg, CrCl > 30 mL/min) *Enoxaparin/Lovenox 30 mg SQ daily (WT < 150 kg, CrCl > 10-29 mL/min) *Enoxaparin/Lovenox 30 mg SQ BID (WT < 150 kg, CrCl > 30 mL/min) AND/OR *Sequential Compression Device (SCD) 5 or more Highest Order ONE of the following medications: *Heparin 5000 units SQ TID (Preferred with Epidurals) *Enoxaparin/Lovenox 40 mg SQ daily (WT < 150 kg, CrCl > 30 mL/min) *Enoxaparin/Lovenox 30 mg SQ daily (WT < 150 kg, CrCl > 10-29 mL/min) *Enoxaparin/Lovenox 30 mg SQ BID (WT < 150 kg, CrCl > 30 mL/min) AND *Sequential Compression Device (SCD) Assessment and Plan - Problem List (1) Acute pulmonary embolism Code(s): I26.99 - Other pulmonary embolism without acute cor pulmonale Status : Acute (2) Elevated troponin Code(s): R74.8 - Abnormal levels of other serum enzymes Status: Acute (3) Hypoxia Code(s): R09.02 - Hypoxemia Status: Acute (4) Lactic acidosis Code(s): E87.2 - Acidosis Status: Acute (5) Leukocytosis Code(s): D72.829 - Elevated white blood cell count, unspecified Status: Acute (6) Breast cancer Code(s): C50.919 - Malignant neoplasm of unspecified site of unspecified female breast Status: Chronic (7) Hip fracture, left Code(s): S72.002A - Fracture of unspecified part of neck of left femur, initial encounter for closed fracture Status: Chronic (8) CKD (chronic kidney disease) Code(s): N18.9 - Chronic kidney disease, unspecified Status: Acute - Assessment and Plan Plan: NEURO: -Monitor neuro status closely status post TPA -Neuro check per ICU protocol RESP: Bilateral extensive pulmonary embolism Troponin elevation indicating right heart strain -Status post TPA administration 10 mg bolus followed by 40 mg infusion over 1 hour -Maintain IV heparin at thousand units per hour for 6 hours and then titrate per PE protocol -Hold home aspirin for 24 hours, hold Lasix -DuoNeb every 6 hours scheduled and as needed CV: Elevated troponin secondary to PE Lactic acidosis -Normal saline IV fluids 1 L bolus and 75 mL/h, -Stat 2D echo is pending at this time, but bedside echo performed by myself post TPA did not show RV dysfunction -Check serial troponins and lactic acid GI: -Heart healthy diet, IV famotidine CT abdomen pelvis showed stable 1.7 cm cystic mass in the distal body/tail of the pancreas. 1.5 cm indeterminate cystic lesion near the superior pole of the right kidney. Further outpatient work up if clinically indicated : Chronic kidney disease -Monitor renal function closely. Stanton catheter placed and [place] emergency department ID: -No indication for antibiotics at this time HEME: History of breast cancer Extensive pulmonary embolism -Her risk of PE includes breast cancer, and recent left hip fracture repaired 2 months ago -Consult placed to Dr. Ho oncology -Monitor CBC, coags, fibrinogen ENDO: -Electrolyte replacement per protocol -Sliding scale insulin PROPH: -Bilateral lower extremity SCDs. IV famotidine. IV heparin as above LINES: -Utilize peripheral IVs CC time 45 min Patient remains very critical with extensive bilateral pulmonary embolism. This significantly increases her risk of sudden . And also further complications. She was administered TPA and IV heparin per MOPETT recommendation Code Status: DNR Discussed Condition With: Dr. Young, Dr. Magallanes (1) Acute pulmonary embolism Qualifiers: Pulmonary embolism type: saddle Acute cor pulmonale presence: with acute cor pulmonale Qualified Code(s): I26.02 - Saddle embolus of pulmonary artery with acute cor pulmonale
[2018-04-06] MEDS ORDERED: Potassium Phosphate Inj 30 MMOL in Sodium Chlor 0.9% Inj 250 ML IV.SIG PRN (12:45)
[2018-04-06] MEDS ORDERED: Potassium Phosphate 500 MG Soluble Tablet PO PRN ×2 (12:45)
[2018-04-06] MEDS ORDERED: Potassium Chlor 20 mEq Premix 20 MEQ/100 ML PIGGYBACK IV.SIG PRN ×2 (12:45)
[2018-04-06] MEDS ORDERED: Magnesium Oxide 400 MG Tablet PO PRN (12:45)
[2018-04-06] MEDS ORDERED: Potassium Chlor 40 mEq Premix 40 MEQ/100 ML PIGGYBACK IV.SIG PRN ×2 (12:45)
[2018-04-06] MEDS ORDERED: Magnesium Sulfate Inj 2 GM in Sodium Chlor 0.9% Inj 96 ML IV.SIG PRN (12:45)
[2018-04-06] MEDS ORDERED: Magnesium Sulfate Inj 4 GM in Sodium Chlor 0.9% Inj 92 ML IV.SIG PRN (12:45)
[2018-04-06] MEDS ORDERED: Sodium Phosphate Inj 30 MMOL in Sodium Chlor 0.9% Inj 250 ML IV.SIG PRN (12:45)
[2018-04-06] MEDS ORDERED: Potassium Chloride 25 MEQ Effervescent Tablet PO PRN (12:45)
--- NOTE | 2018-04-06 13:22 | ECHRPT ---
Indication: Chest pain, unspecified CONCLUSIONS The left ventricular systolic function is normal with an estimated ejection fraction in the range of 60-65%. Wall thickness is normal. Normal left ventricular size. There is mild tricuspid valve regurgitation. The estimated pulmonary arterial pressure is 29 mmHg. BP: / HR: Rhythm: Sinus MEASUREMENTS (Male / Female) Normal Values Technical Quality:Poor 2D ECHO LV Diastolic Diameter PLAX 3.3 cm 4.2 - 5.9 / 3.9 - 5.3 cm LV Systolic Diameter PLAX 2.3 cm IVS Diastolic Thickness 1.0 cm 0.6 - 1.0 / 0.6 - 0.9 cm LVPW Diastolic Thickness 1.0 cm 0.6 - 1.0 / 0.6 - 0.9 cm LV Relative Wall Thickness 0.6 RV Internal Dim ED PLAX 4.1 cm LVOT Diameter 2.1 cm M-MODE Aortic Root Diameter MM 2.7 cm LA Systolic Diameter MM 2.6 cm LA Ao Ratio MM 1.0 AV Cusp Separation MM 1.8 cm DOPPLER AV Peak Velocity 178.0 cm/s AV Peak Gradient 12.7 mmHg LVOT Peak Velocity 92.8 cm/s LVOT Peak Gradient 3.4 mmHg AV Area Cont Eq pk 1.8 cm TR Peak Velocity 219.0 cm/s TR Peak Gradient 19.2 mmHg Right Atrial Pressure 10.0 mmHg Pulmonary Artery Systolic Pressu 29.2 mmHg Right Ventricular Systolic Press 29.2 mmHg PV Peak Velocity 80.1 cm/s PV Peak Gradient 2.6 mmHg FINDINGS LEFT VENTRICLE The left ventricular systolic function is normal with an estimated ejection fraction in the range of 60-65%. Wall thickness is normal. Normal left ventricular size. RIGHT VENTRICLE Normal right ventricular size and systolic function. LEFT ATRIUM The left atrial size is normal. RIGHT ATRIUM The right atrial size is normal. ATRIAL SEPTUM Normal atrial septal thickness without atrial level shunting by limited color doppler interrogation. AORTA The aortic root and proximal ascending aorta are normal in size on limited imaging. MITRAL VALVE Structurally normal mitral valve. No mitral valve stenosis or regurgitation. AORTIC VALVE Trileaflet aortic valve. No aortic valve stenosis or regurgitation. TRICUSPID VALVE There is mild tricuspid valve regurgitation. The estimated pulmonary arterial pressure is 29.2 mmHg. PULMONARY VALVE No pulmonary valve regurgitation or stenosis. VESSELS The inferior vena cava is normal in size. PERICARDIUM No pericardial effusion. Gisele Carlson MD, FACC (Electronically Signed) Final Date:06 April 2018 13:21
[2018-04-06 18:00] LABS: Activated Partial Thrombo Time 84.9 sec (24.3-30.1); INR 1.1 Ratio; Prothrombin Time 11.3 sec (9.8-11.6)
[2018-04-06] MEDS: Heparin Drip 25,000 UNIT/250 ML BAG IV.CONT PRN (18:22)
[2018-04-06] MEDS: Famotidine 20 MG Tablet NG/OG SCH (20:01)
--- NOTE | 2018-04-06 20:40 | MB ---
cc: Jocelyne Ho MD DATE: 04/06/2018 CHIEF COMPLAINT: 1. History of breast cancer. 2. Massive pulmonary embolus status post tPA, currently on heparin drip. HISTORY OF PRESENT ILLNESS: Ms. Makenzie Li is an 87-year-old lady with a history of osteoarthritis, chronic renal disease, acid reflux, hypertension, hyperlipidemia, postmenopausal bleeding and breast cancer, who was admitted to the hospital with progressively worsening respiratory symptoms and found to have massive PE. Her breast cancer history began on a regularly scheduled mammogram 04/11/2017 and found to have a new asymmetric density in the middle third of the left breast. She underwent a biopsy which showed invasive ductal carcinoma, ER positive, AK positive, HER2 negative. Due to age, she elected not to proceed forward with adjuvant chemotherapy or obtaining Oncotype. She attempted adjuvant Anastrozole, however, had side effects and stopped this medication. She decided that due to her age, she did not want to pursue further therapy for her breast cancer. The patient has a history of a hip surgery 56 days ago after she fell and broke her hip and having issues with nausea and dry heaving since that time. Prior to breaking her hip, she also fell and broke her wrist as well. Symptoms leading up to hospital stay include cough and abdominal pain. Chest CTA showed extensive pulmonary embolus with bilateral embolic disease, COPD changes, 1.7 cm cystic lesion in the tail of the pancreas. She is status post tPA administration. Echocardiogram with normal left ventricular systolic function. She reports that since tPA administration, she is feeling much better. CBC with white blood cell count 13.8, hemoglobin 13.1, platelet count 388,000. Chemistry studies with a creatinine that is elevated at 1.2 with an estimated GFR of 43. Alkaline phosphatase slightly elevated at 135. Remainder of the liver function tests within normal limits. Coags with heparin that is in therapeutic range. Nursing staff is titrating per protocol. PAST MEDICAL HISTORY: Osteoarthritis, hyperlipidemia, hypertension, melanoma, acid reflux. PAST SURGICAL HISTORY: Cataracts, partial colectomy, carotid artery surgery, colonoscopy, carpal tunnel surgery, hemorrhoidectomy, tonsillectomy, adenoidectomy. HOSPITAL MEDICATIONS: 1. Albuterol. 2. Heparin. SOCIAL HISTORY good support system with family FAMILY HISTORY No history of blood clot PHYSICAL EXAMINATION: VITAL SIGNS: Pulse 88, respiratory rate 21, blood pressure 114/51. GENERAL: Elderly lady, well-developed, well-nourished, in no distress. HEENT: Head is normocephalic, atraumatic. Eyes: PERRLA. EOMI. NECK: Supple. No palpable lymphadenopathy. CARDIOVASCULAR: Regular rate and rhythm. No murmurs or rubs bilaterally. ABDOMEN: Soft, nontender, nondistended, bowel sounds present. EXTREMITIES: No edema. NEUROLOGIC: Grossly nonfocal. PSYCHIATRIC: Appropriate mood and affect. ASSESSMENT AND PLAN: 1. Pulmonary embolism provoked. However, in patient with decreased mobility and massive size of pulmonary embolism, she will need at least 6 months of anticoagulation if not indefinite anticoagulation. Discussed options for outpatient anticoagulation to include Apixaban, Xarelto and warfarin. Discussed risks, benefits, side effects, and alternatives to each medication. We will further discuss once the patient is ready to be transitioned from heparin to oral therapy. 2. History of breast cancer, stage IA, status post lumpectomy and radiation therapy. She has elected not to proceed with adjuvant endocrine therapy due to side effects. Inpatient hematology service will continue to follow. MD JH Greenfield/yenni , 07:25 PM , 07:32 PM MTDD
--- NOTE | 2018-04-06 22:09 | ECG ---
Date Performed: 04/06/2018 Time Performed: 08:29:47 PTAGE: 87 years EKG: SUPRAVENTRICULAR RHYTHM INCOMPLETE RIGHT BUNDLE BRANCH BLOCK BORDERLINE ECG PREVIOUS TRACING : 02/12/2018 19.13 Since the previous tracing, no significant change noted DOCTOR: Gisele Carlson Interpretating Date/Time 04/06/2018 22:08:55
[2018-04-07] MEDS ORDERED: Chlorhexidine Gluconate 2% 1 Pack (2 Cloths) TOPICAL PRN (04:00)
[2018-04-07] MEDS: Chlorhexidine Gluconate 2% 1 Pack (2 Cloths) TOPICAL SCH (05:10)
[2018-04-07 07:02] LABS: Baso % (Auto) 0.4 % (0.0-2.0); Eos # (Auto) 0.3 th/mm3 (0.0-0.4); Eos % (Auto) 3.2 % (0.0-4.0); Hematocrit 29.6 % (35.0-46.0); Hemoglobin 9.5 gm/dL (11.6-15.3); Lymph # (Auto) 1.9 th/mm3 (1.0-4.8); Lymph % (Auto) 21.3 % (9.0-44.0); Mean Corpuscular HGB Conc 31.9 % (32.0-36.0); Mean Corpuscular Hemoglobin 27.7 pg (27.0-34.0); Mean Corpuscular Volume 86.6 fL (80.0-100.0); Mean Platelet Volume 8.7 fL (7.0-11.0); Mono % (Auto) 10.9 % (0.0-8.0); Neut # (Auto) 5.6 th/mm3 (1.8-7.7); Neut % (Auto) 64.2 % (16.0-70.0); Platelet Count 241 th/mm3 (150-450); Red Blood Count 3.42 mil/mm3 (4.00-5.30); Red Cell Distribution Width 16.1 % (11.6-17.2); White Blood Count 8.8 th/mm3 (4.0-11.0)
[2018-04-07 07:29] LABS: Alanine Aminotransferase 10 U/L (10-53)
[2018-04-07 07:31] LABS: Alkaline Phosphatase 90 U/L (45-117); Total Protein 5.6 g/dL (6.4-8.2)
[2018-04-07 07:55] LABS: Albumin 2.5 g/dL (3.4-5.0); Anion Gap 8 meq/L (5-15); Aspartate Aminotransferase 22 U/L (15-37); Blood Urea Nitrogen 18 mg/dL (7-18); Calcium 7.9 mg/dL (8.5-10.1); Carbon Dioxide 25.5 meq/L (21.0-32.0); Chloride 108 meq/L (98-107); Glomerular Filtration Rate 68 mL/min (>89); Glucose,Random 108 mg/dL (74-106); Potassium 3.8 meq/L (3.5-5.1); Sodium 141 meq/L (136-145)
--- NOTE | 2018-04-07 08:08 | P.PNCC ---
Subjective Subjective Remarks/Hospital Course: Patient is 87-year-old female with past medical history significant for breast cancer, CKD, recent hip fracture status post ORIF 2 months ago 2017, who presented to the emergency department with complaints of nausea and dry heaving. According to the daughter patient had loss of appetite and had been complaining a cough and abdominal pain. Oxygen saturation at home yesterday was 88% -90%. She has not had any of her home medications in 2 days due to the nausea. According to the previous discharge notes after ORIF L hip, patient was placed on anticoagulation for 4 weeks post hip replacement. ER workup included CT pulmonary angiogram due to hypoxia and shortness of breath, and CT abdomen pelvis. This showed extensive bilateral pulmonary embolus. I was contacted for ICU admission. With significant clot burden case was discussed with invasive radiology Dr. Jonathan Magallanes. It was my opinion and he agreed that patient will benefit from TPA due to extensive clot burden. There was also troponin elevation indicating right heart strain. Echo is pending. I discussed with Dr. Young in [place] ED, and patient was administered TPA 10 mg bolus followed by 40 mg infusion over 1 hour for a total dose of 50 mg IV per MOPETT trial recommendations. Patient was already started on IV heparin infusion and this will be continued at thousand units per hour for 6 hours post TPA and then will be titrated according to PE protocol. Risk of bleeding from her left hip repair done almost 2 months ago is minimal and benefit outweighs risks in this case. I evaluated patient in [facility] ICU, s/p TPA. Her shortness of breath and dry heaves are improving. My bedside echo exam did not show RV dysfunction. SUBJ 04/07/18: Patient lying in bed comfortably not in any acute distress. Currently on a simple mask to maintain oxygen saturation above 92%. Appreciate oncology input. Remains therapeutic on IV heparin per PE protocol. Hemoglobin dropped from 13-9.5 most likely dilutional. Check a repeat hemoglobin at noon Objective Vital Signs / I&O: Vital Signs 04/06/18 09:15 04/06/18 10:13 04/06/18 10:16 Temperature 98.1 F Pulse Rate 98 H 92 H 97 H Respiratory Rate 20 20 24 Blood Pressure 133/57 L 135/63 Pulse Oximetry 95 96 97 04/06/18 10:24 04/06/18 10:30 04/06/18 10:46 Temperature Pulse Rate 96 H 96 H Respiratory Rate 20 20 Blood Pressure 122/54 L 115/52 L Pulse Oximetry 96 95 95 04/06/18 11:00 04/06/18 14:00 04/06/18 15:00 Temperature Pulse Rate 94 H 92 H 86 Respiratory Rate 20 22 18 Blood Pressure 121/56 L 127/61 123/62 Pulse Oximetry 95 97 98 04/06/18 15:41 04/06/18 16:00 04/06/18 17:00 Temperature Pulse Rate 84 90 88 Respiratory Rate 20 19 25 H Blood Pressure 126/56 L 106/50 L Pulse Oximetry 96 97 04/06/18 18:00 04/06/18 19:00 04/06/18 20:00 Temperature 97.9 F Pulse Rate 86 81 91 H Respiratory Rate 21 24 Blood Pressure 114/51 L 133/62 Pulse Oximetry 98 04/06/18 21:00 04/06/18 21:38 04/06/18 21:40 Temperature Pulse Rate 82 81 Respiratory Rate 19 Blood Pressure Pulse Oximetry 99 98 04/06/18 22:00 04/07/18 00:00 04/07/18 02:00 Temperature 98.1 F Pulse Rate 90 86 87 Respiratory Rate 24 20 Blood Pressure 105/52 L 102/53 L Pulse Oximetry 96 92 L 99 04/07/18 02:06 04/07/18 04:20 04/07/18 06:00 Temperature Pulse Rate 85 90 Respiratory Rate 20 16 Blood Pressure 139/63 Pulse Oximetry 98 98 100 04/07/18 07:30 Temperature Pulse Rate 83 Respiratory Rate 20 Blood Pressure Pulse Oximetry 100 Intake & Output 04/06/18 04/07/18 04/07/18 18:59 06:59 18:59 Intake Total 1280 / 1280 850 / 850 Output Total 550 / 550 Balance 1280 / 1280 300 / 300 Weight 79 kg Intake: IV 1280 / 1280 850 / 850 Heparin/D5W 25,000 U/250 mL 25, 90 / 90 000 unit In 250 ml @ Per Protocol IV.CONT TITRATE PRN Rx #:[id number] NS Inj 1,000 ML @ 75 mls/hr IV. 150 / 150 850 / 850 CONT .[id number] CARIDAD Rx#: [id number] Activase Drip 40 MG In Bag/ 40 / 40 Syringe 1 EACH @ 40 mls/hr IV. SIG ONCE ONE Rx#:[id number] NS Inj 1,000 ML @ Wide Open IV. 1000 / 1000 SIG BOLUS ONE Rx#:[id number] Output: Urine Amount (Catheter) 550 / 550 Indwelling Urethral Catheter 550 / 550 Other: # Bowel Movements 0 Result Diagrams: 04/07/18 06:39 04/07/18 06:39 Objective Remarks: GENERAL: Awake and alert, appears comfortable SKIN: warm/dry. No wounds or signs of infection. Left hip incision appears well -healed HEAD: Atraumatic. Normocephalic. EYES: Pupils equal and round. No scleral icterus. ENT: Mucous membranes pink and moist. NECK: Trachea midline. No JVD. CHEST: Well-healed scar on left breast from lumpectomy CARDIOVASCULAR: Regular rate and rhythm. No murmur appreciated. Bedside echo performed after TPA does not show evidence of RV strain RESPIRATORY: No accessory muscle use. Clear to auscultation. Breath sounds equal bilaterally. Currently on facemask GASTROINTESTINAL: Abdomen soft, non-tender, nondistended. MUSCULOSKELETAL: No obvious deformities. No clubbing. No cyanosis. No edema. Well-healed left hip scar NEUROLOGICAL: Awake and alert. No obvious cranial nerve deficits. Motor grossly within normal limits. Normal speech. Assessment and Plan - Problem List (1) Acute pulmonary embolism Code(s): I26.99 - Other pulmonary embolism without acute cor pulmonale Status : Acute (2) Elevated troponin Code(s): R74.8 - Abnormal levels of other serum enzymes Status: Acute (3) Hypoxia Code(s): R09.02 - Hypoxemia Status: Acute (4) Lactic acidosis Code(s): E87.2 - Acidosis Status: Acute (5) Leukocytosis Code(s): D72.829 - Elevated white blood cell count, unspecified Status: Acute (6) Breast cancer Code(s): C50.919 - Malignant neoplasm of unspecified site of unspecified female breast Status: Chronic (7) Hip fracture, left Code(s): S72.002A - Fracture of unspecified part of neck of left femur, initial encounter for closed fracture Status: Chronic (8) CKD (chronic kidney disease) Code(s): N18.9 - Chronic kidney disease, unspecified Status: Acute - Assessment and Plan Plan: NEURO: -Monitor neuro status closely status post TPA -Neuro check per ICU protocol RESP: Bilateral extensive pulmonary embolism Troponin elevation indicating right heart strain -Status post TPA administration 10 mg bolus followed by 40 mg infusion over 1 hour -IV heparin per PE protocol -Hold home aspirin for 24 hours, post TPA, resume Lasix -DuoNeb every 6 hours scheduled and as needed CV: Elevated troponin secondary to PE Lactic acidosis -Normal saline IV fluids 1 L bolus and 75 mL/h, DC IVF today -Stat 2D echo and but bedside echo performed by myself post TPA did not show RV dysfunction GI: -Heart healthy diet, IV famotidine -CT abdomen pelvis showed stable 1.7 cm cystic mass in the distal body/tail of the pancreas. 1.5 cm indeterminate cystic lesion near the superior pole of the right kidney. Further outpatient work up if clinically indicated : Chronic kidney disease -Monitor renal function closely. Stanton catheter placed and [place] emergency department-DC ID: -No indication for antibiotics at this time HEME: History of breast cancer Extensive pulmonary embolism -Her risk of PE includes breast cancer, and recent left hip fracture repaired 2 months ago -Appreciate consult from Dr. Ho oncology -Monitor CBC, coags, fibrinogen -Transition from IV heparin to NOAC or Coumadin per hematology oncology ENDO: -Electrolyte replacement per protocol -Sliding scale insulin PROPH: -Bilateral lower extremity SCDs. IV famotidine. IV heparin as above LINES: -Utilize peripheral IVs Level 2 Consult hospitalist to assume care 04/08/2018 Code Status: DNR (1) Acute pulmonary embolism Qualifiers: Pulmonary embolism type: saddle Acute cor pulmonale presence: with acute cor pulmonale Qualified Code(s): I26.02 - Saddle embolus of pulmonary artery with acute cor pulmonale
[2018-04-07] MEDS: Sertraline 50 MG Tablet PO SCH (09:15)
[2018-04-07] MEDS: Famotidine 20 MG Tablet NG/OG SCH ×2 (09:16→22:13)
[2018-04-07] MEDS: Furosemide 40 MG Tablet PO SCH (09:17)
[2018-04-07] MEDS: Multivitamin/Minerals Therapeutic Tablet PO SCH (09:18)
[2018-04-07] MEDS: Calcium/Vitamin D 250/125 MG Tablet PO SCH ×2 (09:18→22:13)
[2018-04-07 16:18] LABS: Bilirubin,Urine Negative (Negative); Clarity,Urine Hazy (Clear); Color,Urine Straw (Yellw/Straw); Glucose,Urine (UA) Negative (Negative); Hyaline Casts,Urine 1 /lpf (0-3); Leukocyte Esterase,Urine Negative (Negative); Mucus,Urine Few /lpf (Occasional); Nitrite,Urine Negative (Negative)
--- NOTE | 2018-04-07 19:50 | P.PNONC ---
Subjective Interval history: Resting comfortably in bed. Reports that she is overall improved from yesterday. Objective Vital Signs/Intake & Output: Vital Signs 04/06/18 20:00 04/06/18 21:00 04/06/18 21:38 Temperature 97.9 F Pulse Rate 91 H 82 81 Respiratory Rate 24 19 Blood Pressure 133/62 Pulse Oximetry 98 99 04/06/18 21:40 04/06/18 22:00 04/07/18 00:00 Temperature 98.1 F Pulse Rate 90 86 Respiratory Rate 24 20 Blood Pressure 105/52 L 102/53 L Pulse Oximetry 98 96 92 L 04/07/18 02:00 04/07/18 02:06 04/07/18 04:20 Temperature Pulse Rate 87 85 Respiratory Rate 20 Blood Pressure Pulse Oximetry 99 98 98 04/07/18 06:00 04/07/18 07:30 04/07/18 08:00 Temperature 97.8 F Pulse Rate 90 83 92 H Respiratory Rate 16 20 18 Blood Pressure 139/63 121/53 L Pulse Oximetry 100 100 99 04/07/18 09:00 04/07/18 10:00 04/07/18 12:00 Temperature 99.3 F Pulse Rate 88 93 H 85 Respiratory Rate 16 12 12 Blood Pressure 119/56 L 125/56 L 121/59 L Pulse Oximetry 95 98 98 04/07/18 14:00 04/07/18 15:26 04/07/18 16:00 Temperature 98.8 F Pulse Rate 81 78 93 H Respiratory Rate 12 18 12 Blood Pressure 125/58 L 150/63 H Pulse Oximetry 98 98 04/07/18 17:00 04/07/18 18:00 Temperature 98.8 F Pulse Rate 93 H 87 Respiratory Rate 12 12 Blood Pressure 94/48 L 104/59 L Pulse Oximetry 98 98 Intake & Output 04/07/18 04/07/18 04/08/18 06:59 18:59 06:59 Intake Total 850 / 850 800 / 800 Output Total 550 / 550 1200 / 1200 Balance 300 / 300 -400 / -400 Intake: IV 850 / 850 NS Inj 1,000 ML @ 75 mls/hr IV. 850 / 850 CONT .[id number] OMAR Rx#: [id number] Oral 800 / 800 Output: Urine 1200 / 1200 Urine Amount (Catheter) 550 / 550 Indwelling Urethral Catheter 550 / 550 Other: # Bowel Movements 0 1 Result Diagrams: 04/07/18 11:56 04/07/18 06:39 Laboratory Results: Laboratory Results - last 24 hr 04/06/18 04/07/18 04/07/18 16:00 00:30 06:39 WBC 8.8 RBC 3.42 L Hgb 9.5 L D Hct 29.6 L MCV 86.6 MCH 27.7 MCHC 31.9 L RDW 16.1 Plt Count 241 D MPV 8.7 Neut % (Auto) 64.2 Lymph % (Auto) 21.3 [place] % (Auto) 10.9 H Eos % (Auto) 3.2 Baso % (Auto) 0.4 Neut # (Auto) 5.6 Lymph # (Auto) 1.9 [place] # (Auto) 1.0 H Eos # (Auto) 0.3 Baso # (Auto) 0.0 WBC Differential . Differential Comment Auto diff final APTT 49.7 H D Sodium Potassium Chloride Carbon Dioxide Anion Gap BUN Creatinine Estimated GFR Random Glucose Calcium Total Bilirubin AST ALT Alkaline Phosphatase Total Protein Albumin Urine Color Urine Clarity Urine pH Ur Specific [place] Urine Protein Urine Glucose (UA) Urine Ketones Urine Occult Blood Urine Nitrate Urine Bilirubin Urine Urobilinogen Ur Leukocyte Esterase Urine RBC Urine WBC Hyaline Casts Granular Casts Urine Mucus Micro UA Comment Ur Microscopic Review Urine Culture Comments Nasal Screen MRSA (PCR) Not detected 04/07/18 04/07/18 04/07/18 06:39 06:39 11:56 WBC RBC Hgb 9.7 L Hct MCV MCH MCHC RDW Plt Count MPV Neut % (Auto) Lymph % (Auto) [place] % (Auto) Eos % (Auto) Baso % (Auto) Neut # (Auto) Lymph # (Auto) [place] # (Auto) Eos # (Auto) Baso # (Auto) WBC Differential Differential Comment APTT 48.1 H Sodium 141 Potassium 3.8 Chloride 108 H Carbon Dioxide 25.5 Anion Gap 8 BUN 18 Creatinine 0.80 Estimated GFR 68 L Random Glucose 108 H Calcium 7.9 L D Total Bilirubin 0.4 AST 22 ALT 10 Alkaline Phosphatase 90 Total Protein 5.6 L D Albumin 2.5 L D Urine Color Urine Clarity Urine pH Ur Specific [place] Urine Protein Urine Glucose (UA) Urine Ketones Urine Occult Blood Urine Nitrate Urine Bilirubin Urine Urobilinogen Ur Leukocyte Esterase Urine RBC Urine WBC Hyaline Casts Granular Casts Urine Mucus Micro UA Comment Ur Microscopic Review Urine Culture Comments Nasal Screen MRSA (PCR) 04/07/18 15:30 WBC RBC Hgb Hct MCV MCH MCHC RDW Plt Count MPV Neut % (Auto) Lymph % (Auto) [place] % (Auto) Eos % (Auto) Baso % (Auto) Neut # (Auto) Lymph # (Auto) [place] # (Auto) Eos # (Auto) Baso # (Auto) WBC Differential Differential Comment APTT Sodium Potassium Chloride Carbon Dioxide Anion Gap BUN Creatinine Estimated GFR Random Glucose Calcium Total Bilirubin AST ALT Alkaline Phosphatase Total Protein Albumin Urine Color Straw Urine Clarity Hazy H Urine pH 5.0 Ur Specific [place] 1.010 Urine Protein Negative Urine Glucose (UA) Negative Urine Ketones Negative Urine Occult Blood Moderate H Urine Nitrate Negative Urine Bilirubin Negative Urine Urobilinogen Less than 2 Ur Leukocyte Esterase Negative Urine RBC 22 H Urine WBC 3 Hyaline Casts 1 Granular Casts 1 Urine Mucus Few H Micro UA Comment Cath-culture not ind Ur Microscopic Review Not Reportable Urine Culture Comments Cath-cult not ind Nasal Screen MRSA (PCR) Medications: Active Medications Generic Name Dose Route Start Last Admin Trade Name Garretq PRN Reason Stop Dose Admin Albuterol 1 ampul 04/06/18 10:00 04/07/18 15:25 Duoneb Neb (Omar) NEB 1 ampul Q6HR NEB [facility] Administration Calcium/Vitamin D 2 tab 04/07/18 09:00 04/07/18 09:18 Oscal With D 250/125 Mg PO 2 tab BID OMAR Administration Chlorhexidine Gluconate 3 pack 04/07/18 04:00 04/07/18 05:10 Chlorhexidine 2% Cloth TOPICAL 04/12/18 03:59 Not Given DAILY@0400 OMAR Enalapril Maleate 10 mg 04/07/18 09:00 04/07/18 09:17 Vasotec PO 10 mg DAILY OMAR Administration Famotidine 10 mg 04/06/18 21:00 04/07/18 09:16 Pepcid NG/OG 10 mg BID OMAR Administration Furosemide 40 mg 04/07/18 09:00 04/07/18 09:17 Lasix PO 40 mg DAILY OMAR Administration Heparin Sodium/Dextrose 25,000 unit in 250 mls @ 14.22 mls/hr 04/06/18 12:05 04/06/18 18:22 Heparin/D5w 25,000 U/250 Ml IV.CONT 10.12 units/kg/hr TITRATE PRN 8 mls/hr Per Protocol Administration Protocol 18 UNITS/KG/HR Multivitamins/Minerals 1 tab 04/07/18 09:00 04/07/18 09:18 Theragran-M PO 1 tab DAILY OMAR Administration Pantoprazole Sodium 40 mg 04/07/18 09:00 04/07/18 09:18 Protonix PO 40 mg DAILY OMAR Administration Potassium Chloride 10 meq 04/07/18 09:00 04/07/18 09:18 Klor-Con 10 PO 10 meq DAILY OMAR Administration Sertraline HCl 25 mg 04/07/18 09:00 04/07/18 09:15 Zoloft PO 25 mg DAILY OMAR Administration Verapamil HCl 180 mg 04/07/18 09:00 04/07/18 09:23 Isoptin Sr PO 180 mg DAILY OMAR Administration Objective Remarks: GENERAL: Well-nourished, well-developed patient. SKIN: Warm and dry. HEAD: Normocephalic. EYES: No scleral icterus. No injection or drainage. NECK: Supple, trachea midline. No JVD or lymphadenopathy. LYMPHATIC: No adenopathy. CARDIOVASCULAR: Regular rate and rhythm without murmurs. RESPIRATORY: Breath sounds equal bilaterally. No accessory muscle use. GASTROINTESTINAL: Abdomen soft, non-tender, nondistended. EXTREMITIES: No cyanosis, or edema. MUSCULOSKELETAL: Adequate muscle tone. NEUROLOGICAL: No obvious focal deficit. Awake, alert, and oriented x3. PSYCHIATRIC: Appropriate mood and affect; insight and judgment normal. Assessment/Plan - Plan 1. Provoked pulmonary embolism: Due to deconditioning, hip fracture, reduced mobility. Patient will need to be discharged on anticoagulation. Discussed options for anticoagulation with patient and daughter. Discussed options for anticoagulation to include warfarin, apixaban, rivaroxban. Discussed risks, benefits of each medications. Discussed that the major side effect of anticoagulation is bleeding. Discussed that there is a reversal agent for the DOACs however this is not yet widely available. At the time of hospital discharge would discharge patient on anticoagualtion with DOAC apixaban. Inpatient hematology service will continue to follow.
[2018-04-07] MEDS: Heparin Drip 25,000 UNIT/250 ML BAG IV.CONT PRN (23:04)
[2018-04-08 05:00] LABS: Hematocrit 30.3 % (35.0-46.0); Mean Corpuscular HGB Conc 32.8 % (32.0-36.0); Mean Corpuscular Volume 85.3 fL (80.0-100.0); Mean Platelet Volume 8.7 fL (7.0-11.0); Platelet Count 249 th/mm3 (150-450); Red Blood Count 3.56 mil/mm3 (4.00-5.30); Red Cell Distribution Width 16.1 % (11.6-17.2); White Blood Count 10.5 th/mm3 (4.0-11.0)
[2018-04-08 05:22] LABS: Alanine Aminotransferase 9 U/L (10-53); Albumin 2.5 g/dL (3.4-5.0); Anion Gap 8 meq/L (5-15); Aspartate Aminotransferase 11 U/L (15-37); Blood Urea Nitrogen 15 mg/dL (7-18); Calcium 8.5 mg/dL (8.5-10.1); Carbon Dioxide 28.1 meq/L (21.0-32.0); Chloride 107 meq/L (98-107); Glomerular Filtration Rate 74 mL/min (>89); Glucose,Random 113 mg/dL (74-106); Potassium 3.7 meq/L (3.5-5.1); Sodium 143 meq/L (136-145)
[2018-04-08 05:23] LABS: Alkaline Phosphatase 95 U/L (45-117); Total Protein 5.7 g/dL (6.4-8.2)
[2018-04-08] MEDS: Chlorhexidine Gluconate 2% 1 Pack (2 Cloths) TOPICAL SCH (06:41)
[2018-04-08] MEDS: Furosemide 40 MG Tablet PO SCH (09:18)
[2018-04-08] MEDS: Famotidine 20 MG Tablet NG/OG SCH ×2 (09:19→21:00)
[2018-04-08] MEDS: Sertraline 50 MG Tablet PO SCH (09:20)
[2018-04-08] MEDS: Multivitamin/Minerals Therapeutic Tablet PO SCH (09:21)
[2018-04-08] MEDS: Calcium/Vitamin D 250/125 MG Tablet PO SCH ×2 (09:21→21:01)
--- NOTE | 2018-04-08 12:50 | P.PNONC ---
Subjective Interval history: Patient lying in bed, awake and alert. Her daughter is at the bedside. She denies any shortness of breath or pain. Denies headache. Continues on heparin drip, denies any bleeding. She does show me her 2 IV sites on her left arm with some oozing at the cannula site. This is very minimal and appears to be dry. She reports she has been able to urinate 3 times since her Stanton catheter was discontinued. Objective Vital Signs/Intake & Output: Vital Signs 04/07/18 14:00 04/07/18 15:26 04/07/18 16:00 Temperature 98.8 F Pulse Rate 81 78 93 H Respiratory Rate 12 18 12 Blood Pressure 125/58 L 150/63 H Pulse Oximetry 98 98 04/07/18 17:00 04/07/18 18:00 04/07/18 20:00 Temperature 98.8 F 97.8 F Pulse Rate 93 H 87 82 Respiratory Rate 12 12 24 Blood Pressure 94/48 L 104/59 L 130/61 Pulse Oximetry 98 98 96 04/07/18 21:08 04/07/18 21:11 04/07/18 22:00 Temperature Pulse Rate 83 87 Respiratory Rate 18 Blood Pressure Pulse Oximetry 98 04/08/18 00:00 04/08/18 02:00 04/08/18 04:00 Temperature 98.2 F 98.2 F Pulse Rate 82 82 84 Respiratory Rate 18 18 Blood Pressure 146/67 H 139/64 Pulse Oximetry 97 98 04/08/18 04:30 04/08/18 06:00 04/08/18 07:00 Temperature Pulse Rate 90 88 90 Respiratory Rate 16 Blood Pressure Pulse Oximetry 99 04/08/18 07:49 04/08/18 07:50 04/08/18 08:00 Temperature 97.6 F Pulse Rate 85 90 Respiratory Rate 18 20 Blood Pressure 133/60 Pulse Oximetry 98 99 04/08/18 09:00 04/08/18 10:00 04/08/18 11:00 Temperature Pulse Rate 92 H 90 83 Respiratory Rate 21 20 21 Blood Pressure 141/63 H 126/58 L 102/55 L Pulse Oximetry 98 96 97 Intake & Output 04/07/18 04/08/18 04/08/18 18:59 06:59 18:59 Intake Total 800 / 800 490 / 490 Output Total 1200 / 1200 275 / 275 Balance -400 / -400 215 / 215 Intake: IV 250 / 250 Heparin/D5W 25,000 U/250 mL 25, 250 / 250 000 unit In 250 ml @ 18 UNITS/ KG/HR 14.22 mls/hr IV.CONT TITRATE PRN Rx#:[id number] Oral 800 / 800 240 / 240 Output: Urine 1200 / 1200 275 / 275 Other: Date of Last Bowel Movement 04/07/18 04/07/18 # Bowel Movements 1 1 Result Diagrams: 04/08/18 04:31 04/08/18 04:31 Laboratory Results: Laboratory Results - last 24 hr 04/07/18 04/07/18 04/08/18 11:56 15:30 04:31 WBC 10.5 RBC 3.56 L Hgb 9.7 L 10.0 L Hct 30.3 L MCV 85.3 MCH 28.0 MCHC 32.8 RDW 16.1 Plt Count 249 MPV 8.7 APTT Sodium Potassium Chloride Carbon Dioxide Anion Gap BUN Creatinine Estimated GFR Random Glucose Calcium Total Bilirubin AST ALT Alkaline Phosphatase Total Protein Albumin Urine Color Straw Urine Clarity Hazy H Urine pH 5.0 Ur Specific [place] 1.010 Urine Protein Negative Urine Glucose (UA) Negative Urine Ketones Negative Urine Occult Blood Moderate H Urine Nitrate Negative Urine Bilirubin Negative Urine Urobilinogen Less than 2 Ur Leukocyte Esterase Negative Urine RBC 22 H Urine WBC 3 Hyaline Casts 1 Granular Casts 1 Urine Mucus Few H Micro UA Comment Cath-culture not ind Ur Microscopic Review Not Reportable Urine Culture Comments Cath-cult not ind 04/08/18 04/08/18 04:31 04:31 WBC RBC Hgb Hct MCV MCH MCHC RDW Plt Count MPV APTT 39.4 H Sodium 143 Potassium 3.7 Chloride 107 Carbon Dioxide 28.1 Anion Gap 8 BUN 15 Creatinine 0.74 Estimated GFR 74 L Random Glucose 113 H Calcium 8.5 Total Bilirubin 0.4 AST 11 L ALT 9 L Alkaline Phosphatase 95 Total Protein 5.7 L Albumin 2.5 L Urine Color Urine Clarity Urine pH Ur Specific [place] Urine Protein Urine Glucose (UA) Urine Ketones Urine Occult Blood Urine Nitrate Urine Bilirubin Urine Urobilinogen Ur Leukocyte Esterase Urine RBC Urine WBC Hyaline Casts Granular Casts Urine Mucus Micro UA Comment Ur Microscopic Review Urine Culture Comments Medications: Active Medications Generic Name Dose Route Start Last Admin Trade Name Freq PRN Reason Stop Dose Admin Albuterol 1 ampul 04/06/18 10:00 04/08/18 07:49 Duoneb Neb (Omar) NEB 1 ampul Q6HR NEB OMAR Administration Calcium/Vitamin D 2 tab 04/07/18 09:00 04/08/18 09:21 Oscal With D 250/125 Mg PO 2 tab BID OMAR Administration Chlorhexidine Gluconate 3 pack 04/07/18 04:00 04/08/18 06:41 Chlorhexidine 2% Cloth TOPICAL 04/12/18 03:59 Not Given DAILY@0400 OMAR Enalapril Maleate 10 mg 04/07/18 09:00 04/08/18 09:25 Vasotec PO Not Given DAILY OMAR Famotidine 10 mg 04/06/18 21:00 04/08/18 09:19 Pepcid NG/OG 10 mg BID OMAR Administration Furosemide 40 mg 04/07/18 09:00 04/08/18 09:18 Lasix PO 40 mg DAILY OMAR Administration Heparin Sodium/Dextrose 25,000 unit in 250 mls @ 14.22 mls/hr 04/06/18 12:05 04/07/18 23:04 Heparin/D5w 25,000 U/250 Ml IV.CONT 10.12 units/kg/hr TITRATE PRN 8 mls/hr Per Protocol Administration Protocol 18 UNITS/KG/HR Multivitamins/Minerals 1 tab 04/07/18 09:00 04/08/18 09:21 Theragran-M PO 1 tab DAILY OMAR Administration Pantoprazole Sodium 40 mg 04/07/18 09:00 04/08/18 09:19 Protonix PO 40 mg DAILY OMAR Administration Potassium Chloride 10 meq 04/07/18 09:00 04/08/18 09:18 Klor-Con 10 PO 10 meq DAILY OMAR Administration Sertraline HCl 25 mg 04/07/18 09:00 04/08/18 09:20 Zoloft PO 25 mg DAILY OMAR Administration Verapamil HCl 180 mg 04/07/18 09:00 04/08/18 09:25 Isoptin Sr PO 180 mg DAILY OMAR Administration Objective Remarks: GENERAL: Elderly female patient, lying in bed, no acute distress. SKIN: Warm and dry. Small hematoma to right AC. HEAD: Normocephalic. EYES: No scleral icterus. No injection or drainage. NECK: Supple, trachea midline. CARDIOVASCULAR: Regular rate and rhythm without murmurs. RESPIRATORY: Breath sounds distant. Non-labored. O2 via NC 4L. GASTROINTESTINAL: Abdomen soft, non-tender, nondistended. EXTREMITIES: No cyanosis, or edema. MUSCULOSKELETAL: Adequate muscle tone. NEUROLOGICAL: No obvious focal deficit. Awake, alert, and oriented x3. PSYCHIATRIC: Appropriate mood and affect; insight and judgment normal. Assessment/Plan - Plan Ms. Li is a pleasant 87-year-old female currently hospitalized with a saddle PE. She has had decreased mobility due to a hip fracture approximately 6 weeks ago. 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 Patient received a lumpectomy and radiation and declined chemotherapy. She attempted anastrozole, however stopped due to side effects. She declined further treatment. Plan: 1. Provoked pulmonary embolism, s/p TPA, continues on heparin drip. Continue to monitor for bleeding. 2. Patient will need continued anticoagulation upon discharge. 3. Continue supportive care. - Attending Statement The exam, history, and the medical decision-making described in the above note were completed with the assistance of the mid-level provider. I reviewed and agree with the findings presented. I attest that I had a [id number] encounter with the patient on the same day, and personally performed and documented my assessment and findings in the medical record. The patient is doing well. She denies chest pain or shortness of breath. Her lungs are clear. We will continue heparin until a little more stable and not requiring oxygen and then will transition to one of the NOACs. Her PTTs are mostly therapeutic. She is not having any complications from the heparin.
--- NOTE | 2018-04-08 17:14 | P.PNIM ---
Subjective Interval history: Patient is resting comfortably in the ICU today, no signs of respiratory distress. Her oxygen need is 3 L via nasal cannula at this time. She denies any attacks of shortness of breath, denies any overt discomfort. Physical Exam Vital signs: Vital Signs 04/07/18 18:00 04/07/18 20:00 04/07/18 21:08 Temperature 98.8 F 97.8 F Pulse Rate 87 82 83 Respiratory Rate 12 24 18 Blood Pressure 104/59 L 130/61 Pulse Oximetry 98 96 04/07/18 21:11 04/07/18 22:00 04/08/18 00:00 Temperature 98.2 F Pulse Rate 87 82 Respiratory Rate 18 Blood Pressure 146/67 H Pulse Oximetry 98 97 04/08/18 02:00 04/08/18 04:00 04/08/18 04:30 Temperature 98.2 F Pulse Rate 82 84 90 Respiratory Rate 18 16 Blood Pressure 139/64 Pulse Oximetry 98 04/08/18 06:00 04/08/18 07:00 04/08/18 07:49 Temperature Pulse Rate 88 90 Respiratory Rate Blood Pressure Pulse Oximetry 99 98 04/08/18 07:50 04/08/18 08:00 04/08/18 09:00 Temperature 97.6 F Pulse Rate 85 90 92 H Respiratory Rate 18 20 21 Blood Pressure 133/60 141/63 H Pulse Oximetry 99 98 04/08/18 10:00 04/08/18 11:00 04/08/18 12:00 Temperature 98.5 F Pulse Rate 90 83 85 Respiratory Rate 20 21 26 H Blood Pressure 126/58 L 102/55 L 122/58 L Pulse Oximetry 96 97 96 04/08/18 13:00 04/08/18 14:00 04/08/18 15:00 Temperature Pulse Rate 83 75 64 Respiratory Rate 23 24 19 Blood Pressure 121/57 L 117/54 L 117/57 L Pulse Oximetry 97 97 98 04/08/18 16:58 Temperature 99.1 F Pulse Rate 67 Respiratory Rate 20 Blood Pressure 112/57 L Pulse Oximetry 99 Intake & Output 04/07/18 04/08/18 04/08/18 18:59 06:59 18:59 Intake Total 800 / 800 490 / 490 376.41 / 376.41 Output Total 1200 / 1200 275 / 275 1000 / 1000 Balance -400 / -400 215 / 215 -623.59 / -623.59 Intake: IV 250 / 250 76.41 / 76.41 Heparin/D5W 25,000 U/250 mL 25, 250 / 250 76.41 / 76.41 000 unit In 250 ml @ 18 UNITS/ KG/HR 14.22 mls/hr IV.CONT TITRATE PRN Rx#:[id number] Oral 800 / 800 240 / 240 300 / 300 Output: Urine 1200 / 1200 275 / 275 1000 / 1000 Other: Date of Last Bowel Movement 04/07/18 04/08/18 # Bowel Movements 1 1 1 Narrative: GENERAL: AAOx3, no acute distress SKIN: Warm and dry. No rashes HEAD: Atruamtic, normocephalic. EYES: No scleral icterus. No injection or drainage. ENT: Moist mucous membranes, patent nares, no erythema of oropharynx. NECK: Supple, trachea midline. No JVD or lymphadenopathy. Normal thyroid. CARDIOVASCULAR: Regular rate and rhythm. No murmurs, gallops, or rubs. RESPIRATORY: Scattered crackles bilaterally, mild, no wheezing, no tachypnea. No accessory muscle use. GASTROINTESTINAL: Abdomen soft, non-tender, nondistended, normal active bowel sounds MUSCULOSKELETAL: No cyanosis, or edema. NEURO: CN II-XII grossly intact, no focal deficits, no slurring of speech - Urinary Catheter Management Indwelling Urethral Catheter Cath placed during this visit: yes Reason for continuing: Other continuation reason Insertion date: 04/06/18 Insertion time: 10:05 Results - Labs CBC & Chem 7: 04/08/18 04:31 04/08/18 04:31 Laboratory Results - last 24 hr 04/08/18 04/08/18 04/08/18 04:31 04:31 04:31 WBC 10.5 RBC 3.56 L Hgb 10.0 L Hct 30.3 L MCV 85.3 MCH 28.0 MCHC 32.8 RDW 16.1 Plt Count 249 MPV 8.7 APTT 39.4 H Sodium 143 Potassium 3.7 Chloride 107 Carbon Dioxide 28.1 Anion Gap 8 BUN 15 Creatinine 0.74 Estimated GFR 74 L Random Glucose 113 H Calcium 8.5 Total Bilirubin 0.4 AST 11 L ALT 9 L Alkaline Phosphatase 95 Total Protein 5.7 L Albumin 2.5 L 04/08/18 13:23 WBC RBC Hgb Hct MCV MCH MCHC RDW Plt Count MPV APTT 48.0 H D Sodium Potassium Chloride Carbon Dioxide Anion Gap BUN Creatinine Estimated GFR Random Glucose Calcium Total Bilirubin AST ALT Alkaline Phosphatase Total Protein Albumin Assessment and Plan - Plan Bilateral extensive pulmonary embolism Saddle embolism on CTA, risk factors were history of breast cancer and 2-month- old left hip fracture with repair Patient received TPA administration in the ER followed by management in ICU Continuing with IV heparin per PE protocol Continue duo nebs every 6 hours Transition to an OAC or Coumadin prior to discharge Appreciate oncology consult Troponin elevation indicating right heart strain Elevation likely secondary to pulmonary embolism Elevated lactic acid level also secondary to tissue damage caused by pulmonary embolism 2D echocardiogram did not show any right ventricular dysfunction Patient gently rehydrated in the ICU, IV fluids stopped 03/30/2018 h/o pancreatic mass CT abdomen pelvis showed stable 1.7 cm cystic mass in the distal body/tail of the pancreas. 1.5 cm indeterminate cystic lesion near the superior pole of the right kidney Both are stable and may be followed as outpatient DVT prophylaxis Therapeutic heparin
[2018-04-09] MEDS: Heparin Drip 25,000 UNIT/250 ML BAG IV.CONT PRN ×2 (01:35→23:55)
[2018-04-09] MEDS: Chlorhexidine Gluconate 2% 1 Pack (2 Cloths) TOPICAL SCH (03:13)
[2018-04-09] MEDS: Calcium/Vitamin D 250/125 MG Tablet PO SCH ×2 (09:01→20:42)
[2018-04-09] MEDS: Furosemide 40 MG Tablet PO SCH (09:01)
[2018-04-09] MEDS: Multivitamin/Minerals Therapeutic Tablet PO SCH (09:02)
[2018-04-09] MEDS: Famotidine 20 MG Tablet NG/OG SCH ×2 (09:02→20:42)
[2018-04-09] MEDS: Sertraline 50 MG Tablet PO SCH (09:03)
--- NOTE | 2018-04-09 10:23 | P.PNONC ---
Subjective Interval history: T-max 100.1 F. Patient sleeping on approach, awakens easily to voice. She denies any shortness of breath or pain. She denies any bleeding, continues on heparin drip. Objective Vital Signs/Intake & Output: Vital Signs 04/08/18 11:00 04/08/18 12:00 04/08/18 13:00 Temperature 98.5 F Pulse Rate 83 85 83 Respiratory Rate 21 26 H 23 Blood Pressure 102/55 L 122/58 L 121/57 L Pulse Oximetry 97 96 97 04/08/18 14:00 04/08/18 15:00 04/08/18 16:58 Temperature 99.1 F Pulse Rate 75 64 67 Respiratory Rate 24 19 20 Blood Pressure 117/54 L 117/57 L 112/57 L Pulse Oximetry 97 98 99 04/08/18 19:00 04/08/18 20:00 04/08/18 21:00 Temperature 100.1 F H Pulse Rate 72 72 74 Respiratory Rate 18 Blood Pressure 119/40 L Pulse Oximetry 97 97 04/08/18 21:29 04/08/18 22:00 04/08/18 23:00 Temperature Pulse Rate 76 80 78 Respiratory Rate 18 Blood Pressure Pulse Oximetry 95 04/08/18 23:04 04/09/18 00:00 04/09/18 01:00 Temperature 98.4 F Pulse Rate 81 78 76 Respiratory Rate 18 Blood Pressure 106/48 L Pulse Oximetry 98 04/09/18 02:00 04/09/18 02:54 04/09/18 03:00 Temperature Pulse Rate 72 98 H 76 Respiratory Rate 18 Blood Pressure Pulse Oximetry 04/09/18 04:00 04/09/18 05:00 04/09/18 05:58 Temperature 98.0 F Pulse Rate 86 78 75 Respiratory Rate 18 Blood Pressure 136/57 L Pulse Oximetry 96 04/09/18 07:00 04/09/18 08:00 04/09/18 09:00 Temperature 98.5 F Pulse Rate 71 74 78 Respiratory Rate 18 Blood Pressure 106/48 L Pulse Oximetry 96 96 04/09/18 09:07 Temperature Pulse Rate 85 Respiratory Rate 16 Blood Pressure Pulse Oximetry 91 L Intake & Output 04/08/18 04/09/18 04/09/18 18:59 06:59 18:59 Intake Total 616.41 / 616.41 413 / 413 Output Total 1000 / 1000 150 / 150 Balance -383.59 / -383.59 263 / 263 Weight 80.2 kg Intake: IV 76.41 / 76.41 173 / 173 Heparin/D5W 25,000 U/250 mL 25, 76.41 / 76.41 173 / 173 000 unit In 250 ml @ 18 UNITS/ KG/HR 14.22 mls/hr IV.CONT TITRATE PRN Rx#:[id number] Oral 540 / 540 240 / 240 Output: Urine 1000 / 1000 150 / 150 Other: # Incontinent Voids 1 Date of Last Bowel Movement 04/08/18 04/09/18 # Bowel Movements 1 Result Diagrams: 04/09/18 10:19 04/09/18 10:19 Laboratory Results: Laboratory Results - last 24 hr 04/08/18 04/08/18 04/09/18 13:23 20:23 03:50 APTT 48.0 H D 52.0 H 62.8 H D Medications: Active Medications Generic Name Dose Route Start Last Admin Trade Name Garretq PRN Reason Stop Dose Admin Albuterol 1 ampul 04/06/18 10:00 04/09/18 09:05 Duoneb Neb ([facility]) NEB 1 ampul Q6HR NEB [facility] Administration Calcium/Vitamin D 2 tab 04/07/18 09:00 04/09/18 09:01 Oscal With D 250/125 Mg PO 2 tab BID [facility] Administration Chlorhexidine Gluconate 3 pack 04/07/18 04:00 04/09/18 03:13 Chlorhexidine 2% Cloth TOPICAL 04/12/18 03:59 Not Given DAILY@0400 [facility] Enalapril Maleate 10 mg 04/07/18 09:00 04/09/18 09:01 Vasotec PO 10 mg DAILY CAR[facility] Administration Famotidine 10 mg 04/06/18 21:00 04/09/18 09:02 Pepcid NG/OG 10 mg BID [facility] Administration Furosemide 40 mg 04/07/18 09:00 04/09/18 09:01 Lasix PO 40 mg DAILY CARID[facility] Administration Heparin Sodium/Dextrose 25,000 unit in 250 mls @ 14.22 mls/hr 04/06/18 12:05 04/09/18 01:35 Heparin/D5w 25,000 U/250 Ml IV.CONT 11.39 units/kg/hr TITRATE PRN 9 mls/hr Per Protocol Administration Protocol 18 UNITS/KG/HR Multivitamins/Minerals 1 tab 04/07/18 09:00 04/09/18 09:02 Theragran-M PO 1 tab DAILY CARIDAD Administration Pantoprazole Sodium 40 mg 04/07/18 09:00 04/09/18 09:02 Protonix PO 40 mg DAILY [facility] Administration Potassium Chloride 10 meq 04/07/18 09:00 04/09/18 09:02 Klor-Con 10 PO 10 meq DAILY [facility] Administration Sertraline HCl 25 mg 04/07/18 09:00 04/09/18 09:03 Zoloft PO 25 mg DAILY [facility] Administration Sodium Chloride 2 ml 04/06/18 07:25 04/08/18 21:02 Ns Flush IV.FLUSH 2 ml PRN PRN Administration FLUSH AFTER USING IV ACCESS Objective Remarks: GENERAL: Elderly female patient, lying in bed, no acute distress. SKIN: Warm and dry. Small hematoma to right AC. HEAD: Normocephalic. EYES: No scleral icterus. No injection or drainage. NECK: Supple, trachea midline. CARDIOVASCULAR: Regular rate and rhythm without murmurs. RESPIRATORY: Breath sounds distant. Non-labored. O2 via NC 2L. GASTROINTESTINAL: Abdomen soft, non-tender, nondistended. EXTREMITIES: No cyanosis, or edema. MUSCULOSKELETAL: Adequate muscle tone. NEUROLOGICAL: No obvious focal deficit. Awake, alert, and oriented x3. PSYCHIATRIC: Appropriate mood and affect; insight and judgment normal. Assessment/Plan - Plan Ms. Li is a pleasant 87-year-old female currently hospitalized with a saddle PE. She has had decreased mobility due to a hip fracture approximately 6 weeks ago. 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 Patient received a lumpectomy and radiation and declined chemotherapy. She attempted anastrozole, however stopped due to side effects. She declined further treatment. Plan: 1. Provoked pulmonary embolism, s/p TPA, continues on heparin drip, APTT 62.8. Subjectively denies shortness of breath. Currently on 2 L via nasal cannula. 2. Patient will need continued anticoagulation upon discharge. 3. Continue to monitor for bleeding. - Attending Statement The exam, history, and the medical decision-making described in the above note were completed with the assistance of the mid-level provider. I reviewed and agree with the findings presented. I attest that I had a [id number] encounter with the patient on the same day, and personally performed and documented my assessment and findings in the medical record. She continues to do well. PTT is therapeutic and there are no problems with bleeding or thrombocytopenia. Lungs are clear. Will switch to an oral anticoagulant early next week.
[2018-04-09 11:02] LABS: Baso % (Auto) 0.5 % (0.0-2.0); Eos # (Auto) 0.3 th/mm3 (0.0-0.4); Eos % (Auto) 3.7 % (0.0-4.0); Hematocrit 31.1 % (35.0-46.0); Lymph # (Auto) 1.2 th/mm3 (1.0-4.8); Lymph % (Auto) 15.1 % (9.0-44.0); Mean Corpuscular HGB Conc 32.3 % (32.0-36.0); Mean Corpuscular Hemoglobin 27.7 pg (27.0-34.0); Mean Platelet Volume 8.6 fL (7.0-11.0); Mono # (Auto) 0.7 th/mm3 (0.0-0.9); Mono % (Auto) 9.1 % (0.0-8.0); Neut # (Auto) 5.7 th/mm3 (1.8-7.7); Neut % (Auto) 71.6 % (16.0-70.0); Platelet Count 246 th/mm3 (150-450); Red Blood Count 3.62 mil/mm3 (4.00-5.30); Red Cell Distribution Width 16.3 % (11.6-17.2)
[2018-04-09 11:25] LABS: Albumin 2.3 g/dL (3.4-5.0); Anion Gap 9 meq/L (5-15); Aspartate Aminotransferase 8 U/L (15-37); Blood Urea Nitrogen 14 mg/dL (7-18); Calcium 8.5 mg/dL (8.5-10.1); Carbon Dioxide 29.3 meq/L (21.0-32.0); Chloride 100 meq/L (98-107); Glomerular Filtration Rate 77 mL/min (>89); Glucose,Random 145 mg/dL (74-106); Potassium 3.5 meq/L (3.5-5.1); Sodium 138 meq/L (136-145)
[2018-04-09 11:26] LABS: Alanine Aminotransferase 8 U/L (10-53)
[2018-04-09 11:28] LABS: Alkaline Phosphatase 89 U/L (45-117); Total Protein 5.8 g/dL (6.4-8.2)
--- NOTE | 2018-04-09 16:49 | P.PNIM ---
Subjective Interval history: Patient's chief complaint is that she feels weak. She denies any overt shortness of breath. She is tolerating p.o. meals just fine. Physical Exam Vital signs: Vital Signs 04/08/18 16:58 04/08/18 19:00 04/08/18 20:00 Temperature 99.1 F 100.1 F H Pulse Rate 67 72 72 Respiratory Rate 20 18 Blood Pressure 112/57 L 119/40 L Pulse Oximetry 99 97 97 04/08/18 21:00 04/08/18 21:29 04/08/18 22:00 Temperature Pulse Rate 74 76 80 Respiratory Rate 18 Blood Pressure Pulse Oximetry 95 04/08/18 23:00 04/08/18 23:04 04/09/18 00:00 Temperature 98.4 F Pulse Rate 78 81 78 Respiratory Rate 18 Blood Pressure 106/48 L Pulse Oximetry 98 04/09/18 01:00 04/09/18 02:00 04/09/18 02:54 Temperature Pulse Rate 76 72 98 H Respiratory Rate 18 Blood Pressure Pulse Oximetry 04/09/18 03:00 04/09/18 04:00 04/09/18 05:00 Temperature 98.0 F Pulse Rate 76 86 78 Respiratory Rate 18 Blood Pressure 136/57 L Pulse Oximetry 96 04/09/18 05:58 04/09/18 07:00 04/09/18 08:00 Temperature 98.5 F Pulse Rate 75 71 74 Respiratory Rate 18 Blood Pressure 106/48 L Pulse Oximetry 96 96 04/09/18 09:00 04/09/18 09:07 04/09/18 10:00 Temperature Pulse Rate 78 85 76 Respiratory Rate 16 Blood Pressure Pulse Oximetry 91 L 04/09/18 11:00 04/09/18 12:00 04/09/18 13:00 Temperature Pulse Rate 76 84 76 Respiratory Rate Blood Pressure Pulse Oximetry 04/09/18 13:45 04/09/18 14:00 04/09/18 15:00 Temperature 98.3 F Pulse Rate 78 76 76 Respiratory Rate 17 Blood Pressure 102/45 L Pulse Oximetry 96 04/09/18 15:53 Temperature Pulse Rate 82 Respiratory Rate 16 Blood Pressure Pulse Oximetry Intake & Output 04/08/18 04/09/18 04/09/18 18:59 06:59 18:59 Intake Total 616.41 / 616.41 413 / 413 Output Total 1000 / 1000 150 / 150 Balance -383.59 / -383.59 263 / 263 Weight 80.2 kg Intake: IV 76.41 / 76.41 173 / 173 Heparin/D5W 25,000 U/250 mL 25, 76.41 / 76.41 173 / 173 000 unit In 250 ml @ 18 UNITS/ KG/HR 14.22 mls/hr IV.CONT TITRATE PRN Rx#:[id number] Oral 540 / 540 240 / 240 Output: Urine 1000 / 1000 150 / 150 Other: # Incontinent Voids 1 Date of Last Bowel Movement 04/08/18 04/09/18 # Bowel Movements 1 Narrative: GENERAL: AAOx3, no acute distress SKIN: Warm and dry. No rashes HEAD: Atruamtic, normocephalic. EYES: No scleral icterus. No injection or drainage. ENT: Moist mucous membranes, patent nares, no erythema of oropharynx. NECK: Supple, trachea midline. No JVD or lymphadenopathy. Normal thyroid. CARDIOVASCULAR: Regular rate and rhythm. No murmurs, gallops, or rubs. RESPIRATORY: Scattered crackles bilaterally, mild, no wheezing, no tachypnea. No accessory muscle use. GASTROINTESTINAL: Abdomen soft, non-tender, nondistended, normal active bowel sounds MUSCULOSKELETAL: No cyanosis, or edema. NEURO: CN II-XII grossly intact, no focal deficits, no slurring of speech - Urinary Catheter Management Indwelling Urethral Catheter Cath placed during this visit: yes Reason for continuing: Other continuation reason Insertion date: 04/06/18 Insertion time: 10:05 Results - Labs CBC & Chem 7: 04/09/18 10:19 04/09/18 10:19 Laboratory Results - last 24 hr 04/08/18 04/09/18 04/09/18 20:23 03:50 10:19 WBC 8.0 RBC 3.62 L Hgb 10.0 L Hct 31.1 L MCV 86.0 MCH 27.7 MCHC 32.3 RDW 16.3 Plt Count 246 MPV 8.6 Neut % (Auto) 71.6 H Lymph % (Auto) 15.1 [place] % (Auto) 9.1 H Eos % (Auto) 3.7 Baso % (Auto) 0.5 Neut # (Auto) 5.7 Lymph # (Auto) 1.2 [place] # (Auto) 0.7 Eos # (Auto) 0.3 Baso # (Auto) 0.0 WBC Differential . Differential Comment Auto diff final APTT 52.0 H 62.8 H D Sodium Potassium Chloride Carbon Dioxide Anion Gap BUN Creatinine Estimated GFR Random Glucose Calcium Total Bilirubin AST ALT Alkaline Phosphatase Total Protein Albumin 04/09/18 10:19 WBC RBC Hgb Hct MCV MCH MCHC RDW Plt Count MPV Neut % (Auto) Lymph % (Auto) [place] % (Auto) Eos % (Auto) Baso % (Auto) Neut # (Auto) Lymph # (Auto) [place] # (Auto) Eos # (Auto) Baso # (Auto) WBC Differential Differential Comment APTT Sodium 138 Potassium 3.5 Chloride 100 Carbon Dioxide 29.3 Anion Gap 9 BUN 14 Creatinine 0.72 Estimated GFR 77 L Random Glucose 145 H Calcium 8.5 Total Bilirubin 0.5 AST 8 L ALT 8 L Alkaline Phosphatase 89 Total Protein 5.8 L Albumin 2.3 L Assessment and Plan - Plan Bilateral extensive pulmonary embolism Saddle embolism on CTA, risk factors were history of breast cancer and 2-month- old left hip fracture with repair Patient received TPA administration in the ER followed by management in ICU Continuing with IV heparin per PE protocol Continue duo nebs every 6 hours Transition to an OAC or Coumadin prior to discharge Appreciate hematology/oncology consult Began activity with physical therapy for exercise tolerance starting tomorrow Troponin elevation indicating right heart strain Elevation likely secondary to pulmonary embolism Elevated lactic acid level also secondary to tissue damage caused by pulmonary embolism 2D echocardiogram did not show any right ventricular dysfunction Patient gently rehydrated in the ICU, IV fluids stopped 03/30/2018 h/o pancreatic mass CT abdomen pelvis showed stable 1.7 cm cystic mass in the distal body/tail of the pancreas. 1.5 cm indeterminate cystic lesion near the superior pole of the right kidney Both are stable and may be followed as outpatient DVT prophylaxis Therapeutic heparin
[2018-04-09] MEDS ORDERED: Sodium Chlor 0.9% Inj 500 ML IV.SIG SCH (23:45)
[2018-04-10] MEDS: Heparin Drip 25,000 UNIT/250 ML BAG IV.CONT PRN (00:18)
[2018-04-10] MEDS: Chlorhexidine Gluconate 2% 1 Pack (2 Cloths) TOPICAL SCH (04:20)
[2018-04-10] MEDS: Famotidine 20 MG Tablet NG/OG SCH ×2 (09:27→20:16)
[2018-04-10] MEDS: Furosemide 40 MG Tablet PO SCH (09:27)
[2018-04-10] MEDS: Sertraline 50 MG Tablet PO SCH (09:27)
[2018-04-10] MEDS: Multivitamin/Minerals Therapeutic Tablet PO SCH (09:28)
[2018-04-10] MEDS: Calcium/Vitamin D 250/125 MG Tablet PO SCH ×2 (09:28→20:17)
--- NOTE | 2018-04-10 12:35 | P.PNIM ---
Subjective Interval history: Patient is lying in bed, comfortable, but still feels weak. Her daughter was at bedside today and explained that her mother is "not herself", she is usually a fighter but since her surgery 53 days ago she has been poorly motivated to do very basic things at home and somewhat negative guarding her potential to do more. Physical Exam Vital signs: Vital Signs 04/09/18 13:00 04/09/18 13:45 04/09/18 14:00 Temperature 98.3 F Pulse Rate 76 78 76 Respiratory Rate 17 Blood Pressure 102/45 L Pulse Oximetry 96 04/09/18 15:00 04/09/18 15:53 04/09/18 16:00 Temperature Pulse Rate 76 82 74 Respiratory Rate 16 Blood Pressure Pulse Oximetry 04/09/18 16:48 04/09/18 17:00 04/09/18 18:00 Temperature 98.2 F Pulse Rate 78 92 H 84 Respiratory Rate 17 Blood Pressure 105/40 L Pulse Oximetry 94 L 04/09/18 19:00 04/09/18 19:20 04/09/18 20:00 Temperature 98.6 F Pulse Rate 82 82 78 Respiratory Rate 20 Blood Pressure 95/49 L Pulse Oximetry 94 L 94 L 04/09/18 20:24 04/09/18 21:00 04/09/18 22:00 Temperature Pulse Rate 76 90 94 H Respiratory Rate 17 Blood Pressure Pulse Oximetry 94 L 04/09/18 23:00 04/09/18 23:31 04/10/18 00:00 Temperature 98.6 F Pulse Rate 89 93 H 90 Respiratory Rate 18 Blood Pressure 86/43 L Pulse Oximetry 96 04/10/18 01:00 04/10/18 02:00 04/10/18 03:00 Temperature Pulse Rate 80 84 80 Respiratory Rate Blood Pressure Pulse Oximetry 04/10/18 03:41 04/10/18 04:00 04/10/18 05:00 Temperature 97.8 F Pulse Rate 80 86 85 Respiratory Rate 16 18 Blood Pressure 120/51 L Pulse Oximetry 95 04/10/18 06:00 04/10/18 07:00 04/10/18 08:00 Temperature 98.1 F Pulse Rate 86 86 86 Respiratory Rate 18 Blood Pressure 110/51 L Pulse Oximetry 93 L 93 L 04/10/18 09:00 04/10/18 09:34 04/10/18 10:00 Temperature Pulse Rate 84 92 H 93 H Respiratory Rate 18 Blood Pressure Pulse Oximetry 95 04/10/18 11:00 04/10/18 12:00 Temperature 98.0 F Pulse Rate 94 H 94 H Respiratory Rate 18 Blood Pressure 98/56 L Pulse Oximetry 95 Intake & Output 04/09/18 04/10/18 04/10/18 18:59 06:59 18:59 Intake Total 500 / 500 990 / 990 Output Total 850 / 850 150 / 150 Balance -350 / -350 840 / 840 Weight 80.8 kg Intake: IV 750 / 750 Heparin/D5W 25,000 U/250 mL 25, 250 / 250 000 unit In 250 ml @ 18 UNITS/ KG/HR 14.22 mls/hr IV.CONT TITRATE PRN Rx#:[id number] NS Inj 500 ML @ Wide Open IV. 500 / 500 SIG BOLUS CARIDAD Rx#:[id number] Oral 500 / 500 240 / 240 Output: Urine 850 / 850 150 / 150 Other: Date of Last Bowel Movement 04/09/18 # Bowel Movements 1 Narrative: GENERAL: AAOx3, no acute distress SKIN: Warm and dry. No rashes HEAD: Atruamtic, normocephalic. EYES: No scleral icterus. No injection or drainage. ENT: Moist mucous membranes, patent nares, no erythema of oropharynx. NECK: Supple, trachea midline. No JVD or lymphadenopathy. Normal thyroid. CARDIOVASCULAR: Regular rate and rhythm. No murmurs, gallops, or rubs. RESPIRATORY: Scattered crackles bilaterally, mild, no wheezing, no tachypnea. No accessory muscle use. GASTROINTESTINAL: Abdomen soft, non-tender, nondistended, normal active bowel sounds MUSCULOSKELETAL: No cyanosis, or edema. NEURO: CN II-XII grossly intact, no focal deficits, no slurring of speech - Urinary Catheter Management Indwelling Urethral Catheter Cath placed during this visit: yes Reason for continuing: Other continuation reason Insertion date: 04/06/18 Insertion time: 10:05 Results - Labs CBC & Chem 7: 04/09/18 10:19 04/09/18 10:19 Laboratory Results - last 24 hr 04/10/18 08:18 APTT 77.2 H D Assessment and Plan - Plan Bilateral extensive pulmonary embolism Saddle embolism on CTA, risk factors were history of breast cancer and 2-month- old left hip fracture with repair Patient received TPA administration in the ER followed by management in ICU Continuing with IV heparin per PE protocol Continue duo nebs every 6 hours Transition to an OAC or Coumadin prior to discharge Appreciate hematology/oncology consult Continue PT OT to evaluate abilities Troponin elevation indicating right heart strain Elevation likely secondary to pulmonary embolism Elevated lactic acid level also secondary to tissue damage caused by pulmonary embolism 2D echocardiogram did not show any right ventricular dysfunction Patient gently rehydrated in the ICU, IV fluids stopped 03/30/2018 h/o pancreatic mass CT abdomen pelvis showed stable 1.7 cm cystic mass in the distal body/tail of the pancreas. 1.5 cm indeterminate cystic lesion near the superior pole of the right kidney Both are stable and may be followed as outpatient DVT prophylaxis Therapeutic heparin Discharge planning Patient will likely need to go to rehab center for a period of time
--- NOTE | 2018-04-10 18:20 | P.PNONC ---
Subjective Interval history: Resting comfortably in bed Abdominal pain and nausea today. Up to chair today. Objective Vital Signs/Intake & Output: Vital Signs 04/09/18 19:00 04/09/18 19:20 04/09/18 20:00 Temperature 98.6 F Pulse Rate 82 82 78 Respiratory Rate 20 Blood Pressure 95/49 L Pulse Oximetry 94 L 94 L 04/09/18 20:24 04/09/18 21:00 04/09/18 22:00 Temperature Pulse Rate 76 90 94 H Respiratory Rate 17 Blood Pressure Pulse Oximetry 94 L 04/09/18 23:00 04/09/18 23:31 04/10/18 00:00 Temperature 98.6 F Pulse Rate 89 93 H 90 Respiratory Rate 18 Blood Pressure 86/43 L Pulse Oximetry 96 04/10/18 01:00 04/10/18 02:00 04/10/18 03:00 Temperature Pulse Rate 80 84 80 Respiratory Rate Blood Pressure Pulse Oximetry 04/10/18 03:41 04/10/18 04:00 04/10/18 05:00 Temperature 97.8 F Pulse Rate 80 86 85 Respiratory Rate 16 18 Blood Pressure 120/51 L Pulse Oximetry 95 04/10/18 06:00 04/10/18 07:00 04/10/18 08:00 Temperature 98.1 F Pulse Rate 86 86 86 Respiratory Rate 18 Blood Pressure 110/51 L Pulse Oximetry 93 L 93 L 04/10/18 09:00 04/10/18 09:34 04/10/18 10:00 Temperature Pulse Rate 84 92 H 93 H Respiratory Rate 18 Blood Pressure Pulse Oximetry 95 04/10/18 11:00 04/10/18 12:00 04/10/18 13:00 Temperature 98.0 F Pulse Rate 94 H 94 H 88 Respiratory Rate 18 Blood Pressure 98/56 L Pulse Oximetry 95 04/10/18 14:00 04/10/18 15:00 04/10/18 16:00 Temperature 98.9 F Pulse Rate 94 H 88 94 H Respiratory Rate 20 Blood Pressure 120/58 L Pulse Oximetry 93 L 04/10/18 17:00 Temperature Pulse Rate 90 Respiratory Rate Blood Pressure Pulse Oximetry Intake & Output 04/09/18 04/10/18 04/10/18 18:59 06:59 18:59 Intake Total 500 / 500 990 / 990 Output Total 850 / 850 150 / 150 Balance -350 / -350 840 / 840 Weight 80.8 kg Intake: IV 750 / 750 Heparin/D5W 25,000 U/250 mL 25, 250 / 250 000 unit In 250 ml @ 18 UNITS/ KG/HR 14.22 mls/hr IV.CONT TITRATE PRN Rx#:[id number] NS Inj 500 ML @ Wide Open IV. 500 / 500 SIG BOLUS CARIDAD Rx#:[id number] Oral 500 / 500 240 / 240 Output: Urine 850 / 850 150 / 150 Other: Date of Last Bowel Movement 04/09/18 # Bowel Movements 1 Result Diagrams: 04/09/18 10:19 04/09/18 10:19 Laboratory Results: Laboratory Results - last 24 hr 04/10/18 08:18 APTT 77.2 H D Medications: Active Medications Generic Name Dose Route Start Last Admin Trade Name Freq PRN Reason Stop Dose Admin Calcium/Vitamin D 2 tab 04/07/18 09:00 04/10/18 09:28 Oscal With D 250/125 Mg PO 2 tab BID CARIDAD Administration Chlorhexidine Gluconate 3 pack 04/07/18 04:00 04/10/18 04:20 Chlorhexidine 2% Cloth TOPICAL 04/12/18 03:59 Not Given DAILY@0400 CARIDAD Enalapril Maleate 10 mg 04/07/18 09:00 04/10/18 09:26 Vasotec PO 10 mg DAILY CARIDAD Administration Famotidine 10 mg 04/06/18 21:00 04/10/18 09:27 Pepcid NG/OG 10 mg BID CARIDAD Administration Furosemide 40 mg 04/07/18 09:00 04/10/18 09:27 Lasix PO 40 mg DAILY CARIDAD Administration Sodium Chloride 500 mls @ 0 mls/hr 04/09/18 23:45 04/10/18 05:16 Ns Inj IV.SIG Infused BOLUS CARIDAD Infusion Wide Open Heparin Sodium/Dextrose 25,000 unit in 250 mls @ 14.436 mls/hr 04/10/18 00:13 04/10/18 00:18 Heparin/D5w 25,000 U/250 Ml IV.CONT 11.22 units/kg/hr TITRATE PRN 9 mls/hr Per Protocol Administration Protocol 18 UNITS/KG/HR Multivitamins/Minerals 1 tab 04/07/18 09:00 04/10/18 09:28 Theragran-M PO 1 tab DAILY CARIDAD Administration Ondansetron HCl 4 mg 04/10/18 14:33 04/10/18 15:20 Zofran Inj IV.PUSH 4 mg Q6H PRN Administration NAUSEA OR VOMITING Pantoprazole Sodium 40 mg 04/07/18 09:00 04/10/18 09:28 Protonix PO 40 mg DAILY CARIDAD Administration Potassium Chloride 10 meq 04/07/18 09:00 04/10/18 09:28 Klor-Con 10 PO 10 meq DAILY CARIDAD Administration Sertraline HCl 25 mg 04/07/18 09:00 04/10/18 09:27 Zoloft PO 25 mg DAILY CARIDAD Administration Sodium Chloride 2 ml 04/06/18 07:25 04/08/18 21:02 Ns Flush IV.FLUSH 2 ml PRN PRN Administration FLUSH AFTER USING IV ACCESS Objective Remarks: GENERAL: Well-nourished, well-developed patient. SKIN: Warm and dry. HEAD: Normocephalic. LYMPHATIC: No adenopathy. CARDIOVASCULAR: Regular rate and rhythm without murmurs. RESPIRATORY: No accessory muscle use. GASTROINTESTINAL: Abdomen soft, non-tender, nondistended. EXTREMITIES: No edema. MUSCULOSKELETAL: Adequate muscle tone. NEUROLOGICAL: No obvious focal deficit. Awake, alert, and oriented x3. Assessment/Plan - Plan Ms. Li is a pleasant 87-year-old female currently hospitalized with a saddle PE. She has had decreased mobility due to a hip fracture approximately 6 weeks ago. She also has a history of breast cancer, originally diagnosed in 2017, invasive ductal carcinoma ER positive, MO positive HER-2 negative. Patient received a lumpectomy and radiation and declined chemotherapy. She attempted anastrozole, however stopped due to side effects. She declined further treatment. Plan: 1. Provoked pulmonary embolism, s/p TPA, continues on heparin drip, APTT therapeutic. She will need to be discharged on apixaban 5 mg PO BID. Case discussed with Dr. Lucas. Inpatient hematology service will continue to follow.
[2018-04-10 21:09] LABS: Folate 19.4 ng/mL (3.1-17.5)
--- NOTE | 2018-04-11 | CT ---
EXAM DATE: 04/10/2018 10:37 PM EDT AGE/SEX: 87 years / Female INDICATIONS: Abdomen pain. possible ischemic bowel. CLINICAL DATA: This is the patient's initial encounter. Patient reports that signs and symptoms have been present for 1 day and indicates a pain score of 8/10. MEDICAL/SURGICAL HISTORY: Carcinoma, breast. Carcinoma, colon. Colon resection. Mastectomy, left. Carotid endarterectomy. RADIATION DOSE: 7.48 CTDI (mGy) COMPARISON: [facility], CT ABDOMEN & PELVIS W CONTRAST, 04/06/2018. . TECHNIQUE: Volumetric scanning was performed using a multi-row detector CT scanner during bolus infu oleksandr of 100 ml Omnipaque 350 (iohexol) nonionic water-soluble contrast as a single exam dose. . The data was post processed with a variety of visualization algorithms including full volume maximum int ensity projection, multi-planar sliding thin slab reformation, curved planar reformation, and surface rendering techniques. Using automated exposure control and adjustment of the mA and/or kV according to patient size, radiation dose was kept as low as reasonably achievable to obtain optimal diagnosti c quality images. DICOM format image data is available electronically for review and comparison. FINDINGS: Angiographic Findings: Abdominal Aorta: Diffuse atherosclerotic calcifications of the abdominal aorta without significant f low-limiting stenosis or aneurysm. Iliacs: Mild calcified plaque throughout the iliac arteries without significant flow-limiting stenosi s or aneurysm. Visualized femoral arteries are patent. Renal Arteries: Accessory right renal artery supplying the inferior pole. Mild stenosis of the main r ight renal artery. Mild to moderate stenosis of the origin of the left renal artery secondary to calc ified plaque. Mesenteric Arteries: Mild to moderate stenosis of the celiac origin. Mild to moderate stenosis of the proximal SMA secondary to primarily calcified plaque. CYRIL is patent. General Findings: LOWER LUNGS: Parenchymal scarring at the lung bases bilaterally. LIVER: The liver has a homogeneous density without space-occupying lesion. There is no dilation of t he biliary tree. SPLEEN: Homogeneous density without enlargement. PANCREAS: There is a 1.9 cm cystic density mass in the tail of the pancreas. This appears largely un changed from prior CT exam. KIDNEYS: Kidneys are symmetrical in size and demonstrate symmetrical enhancement. There is a 2.9 cm cyst in the inferior pole of the left kidney. There is an indeterminate slightly hypodense lesion in the superior pole of the right kidney which measures 2 cm. Punctate less than 2 mm calyceal calculus in the anterior mid right kidney. No hydronephrosis. ADRENAL GLANDS: Unremarkable. BOWEL/MESENTERY: Moderate sigmoid and descending colonic diverticulosis. Subtle pericolonic inflamma tory stranding. The distal descending colon. Bowel otherwise appears unremarkable without significant bowel wall thickening or obstruction. No free fluid or drainable fluid collections. No free air or p neumatosis. ABDOMINAL WALL: Intact. RETROPERITONEUM: No evidence of adenopathy in the retrocrural, para-aortic, or deep pelvic regions. BLADDER: Contours are smooth. REPRODUCTIVE: No abnormal masses or calcifications seen. BONY STRUCTURES: Left femoral fixation hardware in place. Degenerative spondylosis of the lower lumb ar spine. CONCLUSION: 1. 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 Although involvement of 2 of the 3 mese nteric vessels can result in postprandial mesenteric ischemia symptoms, overall degree of involvement does not appear severe enough to result in severe acute mesenteric ischemia. There is also no defini tive CT evidence for bowel ischemia, infarction or perforation at this time. 2. Moderate colonic diverticulosis with mild diverticulitis in the distal descending colon. No absce ss or perforation. 3. Stable 1.9 cm cyst in the distal body/tail of the pancreas. Follow-up recommendations similar to recent CT exam. 4. 2 cm indeterminate density cystic lesion in the superior pole the right kidney which can be furth er evaluated with renal mass protocol MRI exam as clinically warranted. Alternatively, follow-up exam ination may be obtained in 6-12 months. 5. Additional ancillary findings, as above. Electronically signed by: Brad Nelson MD 04/10/2018 11:59 PM EDT
[2018-04-11] MEDS: Chlorhexidine Gluconate 2% 1 Pack (2 Cloths) TOPICAL SCH (04:17)
[2018-04-11 07:59] LABS: Hematocrit 31.6 % (35.0-46.0); Hemoglobin 10.5 gm/dL (11.6-15.3); Mean Corpuscular HGB Conc 33.1 % (32.0-36.0); Mean Corpuscular Hemoglobin 27.8 pg (27.0-34.0); Mean Corpuscular Volume 83.9 fL (80.0-100.0); Mean Platelet Volume 8.6 fL (7.0-11.0); Platelet Count 281 th/mm3 (150-450); Red Blood Count 3.76 mil/mm3 (4.00-5.30); Red Cell Distribution Width 16.1 % (11.6-17.2); White Blood Count 9.8 th/mm3 (4.0-11.0)
[2018-04-11 08:30] LABS: Calcium 8.5 mg/dL (8.5-10.1); Carbon Dioxide 32.5 meq/L (21.0-32.0); Potassium 3.9 meq/L (3.5-5.1)
[2018-04-11 08:39] LABS: Thyroid Stimulating Hormone 0.458 uIU/mL (0.358-3.740)
[2018-04-11] MEDS: Sertraline 50 MG Tablet PO SCH (09:42)
[2018-04-11] MEDS: Calcium/Vitamin D 250/125 MG Tablet PO SCH ×2 (09:42→21:08)
[2018-04-11] MEDS: Famotidine 20 MG Tablet NG/OG SCH ×2 (09:42→21:07)
[2018-04-11] MEDS: Furosemide 40 MG Tablet PO SCH (09:43)
[2018-04-11] MEDS: Multivitamin/Minerals Therapeutic Tablet PO SCH (09:43)
--- NOTE | 2018-04-11 14:00 | P.PNIM ---
Subjective Interval history: Patient had to stop midway through her physical therapy session yesterday due to abdominal pain and nausea. I ordered a CT angiogram of the abdomen to rule out any ischemic bowel syndrome, but there were no clots occluding any major vessels. Today she seems to have a little more energy, sitting upright in bed eating. She has no new complaints. Physical Exam Vital signs: Vital Signs 04/10/18 14:00 04/10/18 15:00 04/10/18 16:00 Temperature 98.9 F Pulse Rate 94 H 88 94 H Respiratory Rate 20 Blood Pressure 120/58 L Pulse Oximetry 93 L 04/10/18 17:00 04/10/18 18:00 04/10/18 19:00 Temperature Pulse Rate 90 93 H 84 Respiratory Rate Blood Pressure Pulse Oximetry 04/10/18 19:48 04/10/18 20:00 04/10/18 21:00 Temperature 98.9 F Pulse Rate 90 87 87 Respiratory Rate 18 Blood Pressure 105/53 L Pulse Oximetry 93 L 04/10/18 22:00 04/10/18 23:00 04/11/18 00:00 Temperature 98.1 F Pulse Rate 84 80 81 Respiratory Rate 18 Blood Pressure 100/44 L Pulse Oximetry 92 L 04/11/18 01:00 04/11/18 02:00 04/11/18 02:17 Temperature Pulse Rate 77 76 Respiratory Rate Blood Pressure Pulse Oximetry 92 L 04/11/18 03:00 04/11/18 04:00 04/11/18 05:00 Temperature 97.8 F Pulse Rate 74 77 76 Respiratory Rate 18 Blood Pressure 102/48 L Pulse Oximetry 95 04/11/18 05:50 04/11/18 07:00 04/11/18 08:00 Temperature 98.4 F Pulse Rate 77 80 80 Respiratory Rate 18 Blood Pressure 134/62 Pulse Oximetry 92 L 92 L 04/11/18 09:00 04/11/18 10:00 04/11/18 11:00 Temperature Pulse Rate 84 80 79 Respiratory Rate Blood Pressure Pulse Oximetry 04/11/18 12:00 04/11/18 13:00 Temperature 98.5 F Pulse Rate 82 82 Respiratory Rate 18 Blood Pressure 143/59 H Pulse Oximetry Intake & Output 04/10/18 04/11/18 04/11/18 18:59 06:59 18:59 Intake Total 240 / 240 240 / 240 Output Total 400 / 400 350 / 350 Balance -160 / -160 -110 / -110 Weight 80.1 kg Intake: IV Heparin/D5W 25,000 U/250 mL , 000 unit In 250 ml @ 18 UNITS/ KG/HR 14.436 mls/hr IV.CONT TITRATE PRN Rx#:[id number] Oral 240 / 240 240 / 240 Output: Urine 400 / 400 350 / 350 Narrative: GENERAL: AAOx3, no acute distress SKIN: Warm and dry. No rashes HEAD: Atruamtic, normocephalic. EYES: No scleral icterus. No injection or drainage. ENT: Moist mucous membranes, patent nares, no erythema of oropharynx. NECK: Supple, trachea midline. No JVD or lymphadenopathy. Normal thyroid. CARDIOVASCULAR: Regular rate and rhythm. No murmurs, gallops, or rubs. RESPIRATORY: Scattered crackles bilaterally, mild, no wheezing, no tachypnea. No accessory muscle use. GASTROINTESTINAL: Abdomen soft, non-tender, nondistended, normal active bowel sounds MUSCULOSKELETAL: No cyanosis, or edema. NEURO: CN II-XII grossly intact, no focal deficits, no slurring of speech - Urinary Catheter Management Indwelling Urethral Catheter Cath placed during this visit: yes Reason for continuing: Other continuation reason Insertion date: 04/06/18 Insertion time: 10:05 Results - Labs CBC & Chem 7: 04/11/18 07:34 04/11/18 07:34 Laboratory Results - last 24 hr 04/10/18 04/11/18 04/11/18 19:58 02:34 07:34 WBC 9.8 RBC 3.76 L Hgb 10.5 L Hct 31.6 L MCV 83.9 MCH 27.8 MCHC 33.1 RDW 16.1 Plt Count 281 MPV 8.6 APTT 42.3 H D Sodium Potassium Chloride Carbon Dioxide Anion Gap BUN Creatinine Estimated GFR Random Glucose Calcium Iron 15 L TIBC 213 L % Saturation 7.0 L Ferritin 158 Vitamin B12 767 Folate 19.4 H TSH 04/11/18 04/11/18 07:34 08:50 WBC RBC Hgb Hct MCV MCH MCHC RDW Plt Count MPV APTT 32.4 H D Sodium 140 Potassium 3.9 Chloride 99 Carbon Dioxide 32.5 H Anion Gap 9 BUN 18 Creatinine 0.83 Estimated GFR 65 L Random Glucose 103 Calcium 8.5 Iron TIBC % Saturation Ferritin Vitamin B12 Folate TSH 0.458 - Imaging Impressions Abdomen CTA 04/10/18 00:00 CONCLUSION: 1. 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 Although involvement of 2 of the 3 mesenteric vessels can result in postprandial mesenteric ischemia symptoms, overall degree of involvement does not appear severe enough to result in severe acute mesenteric ischemia. There is also no definitive CT evidence for bowel ischemia, infarction or perforation at this time. 2. Moderate colonic diverticulosis with mild diverticulitis in the distal descending colon. No abscess or perforation. 3. Stable 1.9 cm cyst in the distal body/tail of the pancreas. Follow-up recommendations similar to recent CT exam. 4. 2 cm indeterminate density cystic lesion in the superior pole the right kidney which can be further evaluated with renal mass protocol MRI exam as clinically warranted. Alternatively, follow-up examination may be obtained in 6- 12 months. 5. Additional ancillary findings, as above. Assessment and Plan - Plan Bilateral extensive pulmonary embolism Saddle embolism on CTA, risk factors were history of breast cancer and 2-month- old left hip fracture with repair Patient received TPA administration in the ER followed by management in ICU Continuing with IV heparin per PE protocol, patient may be discharged on her home dose of apixaban 5 mg PO BID Continue duo nebs every 6 hours Appreciate hematology/oncology consult Continue PT OT Troponin elevation indicating right heart strain Elevation likely secondary to pulmonary embolism Elevated lactic acid level also secondary to tissue damage caused by pulmonary embolism 2D echocardiogram did not show any right ventricular dysfunction Patient gently rehydrated in the ICU, IV fluids stopped 03/30/2018 Abdominal pain with nausea Exacerbated by activity CT angiogram of abdomen did not show evidence of ischemic bowel or vascular occlusions Continue with symptomatic treatment h/o pancreatic mass CT abdomen pelvis showed stable 1.7 cm cystic mass in the distal body/tail of the pancreas. 1.5 cm indeterminate cystic lesion near the superior pole of the right kidney May be a contributor to her abdominal pain and nausea Follow-up as outpatient DVT prophylaxis Therapeutic heparin Discharge planning Rehab discharge when abilities improve at this point she has poor tolerance of PT sessions
[2018-04-12] MEDS: Heparin Drip 25,000 UNIT/250 ML BAG IV.CONT PRN (08:45)
[2018-04-12] MEDS: Famotidine 20 MG Tablet NG/OG SCH ×2 (09:04→22:22)
[2018-04-12] MEDS: Calcium/Vitamin D 250/125 MG Tablet PO SCH ×2 (09:05→22:22)
[2018-04-12] MEDS: Sertraline 50 MG Tablet PO SCH (09:05)
[2018-04-12] MEDS: Multivitamin/Minerals Therapeutic Tablet PO SCH (09:05)
[2018-04-12] MEDS: Furosemide 40 MG Tablet PO SCH (09:05)
--- NOTE | 2018-04-12 16:05 | P.PNIM ---
Subjective Interval history: The patient was sitting up in a chair. She said she had dry heaves earlier on which have subsided. The patient's daughter was at the bedside and her questions were answered. The patient worked with physical therapy today. The patient says that she does follow-up with a trading specialist. Discussed with nursing. Physical Exam Vital signs: Vital Signs 04/11/18 17:00 04/11/18 17:29 04/11/18 18:00 Temperature Pulse Rate 83 82 Respiratory Rate Blood Pressure Pulse Oximetry 94 L 04/11/18 19:00 04/11/18 20:00 04/11/18 21:00 Temperature 98.6 F Pulse Rate 78 84 72 Respiratory Rate 18 Blood Pressure 92/45 L Pulse Oximetry 95 95 04/11/18 22:00 04/11/18 23:00 04/11/18 23:27 Temperature 98.2 F Pulse Rate 81 76 76 Respiratory Rate 16 Blood Pressure 114/45 L Pulse Oximetry 96 04/12/18 00:00 04/12/18 01:00 04/12/18 02:00 Temperature Pulse Rate 74 80 75 Respiratory Rate Blood Pressure Pulse Oximetry 04/12/18 03:00 04/12/18 03:32 04/12/18 03:33 Temperature 97.8 F Pulse Rate 73 78 71 Respiratory Rate 18 Blood Pressure 128/57 L Pulse Oximetry 94 L 04/12/18 05:00 04/12/18 05:32 04/12/18 07:00 Temperature Pulse Rate 71 78 75 Respiratory Rate 20 Blood Pressure Pulse Oximetry 04/12/18 08:00 04/12/18 09:00 04/12/18 09:14 Temperature 97.8 F Pulse Rate 74 72 Respiratory Rate 19 Blood Pressure 115/52 L Pulse Oximetry 92 L 94 L 04/12/18 10:00 04/12/18 10:16 04/12/18 12:00 Temperature 97.8 F Pulse Rate 70 78 84 Respiratory Rate 18 Blood Pressure 123/47 L Pulse Oximetry 94 L 04/12/18 12:36 Temperature Pulse Rate 86 Respiratory Rate Blood Pressure Pulse Oximetry Intake & Output 04/11/18 04/12/18 04/12/18 18:59 06:59 18:59 Intake Total 521 / 521 480 / 480 250 / 250 Output Total 800 / 800 925 / 925 Balance -279 / -279 -445 / -445 250 / 250 Weight 79.6 kg Intake: IV 250 / 250 Heparin/D5W 25,000 U/250 mL 25, / 250 / 250 000 unit In 250 ml @ 18 UNITS/ KG/HR 14.436 mls/hr IV.CONT TITRATE PRN Rx#:[id number] Oral 480 / 480 480 / 480 Output: Urine 800 / 800 925 / 925 Other: Date of Last Bowel Movement 04/11/18 # Bowel Movements 1 Narrative: GENERAL: No acute distress. SKIN: Warm and dry. No rashes. HEAD: Atruamtic, normocephalic. EYES: No scleral icterus. No injection or drainage. ENT: Moist mucous membranes, patent nares, no erythema of oropharynx. NECK: Supple, trachea midline. No JVD or lymphadenopathy. Normal thyroid. CARDIOVASCULAR: Regular rate and rhythm. No murmurs, gallops, or rubs. RESPIRATORY: Scattered crackles bilaterally, mild, no wheezing, no tachypnea. No accessory muscle use. GASTROINTESTINAL: Abdomen soft, non-tender, nondistended, normal active bowel sounds MUSCULOSKELETAL: No cyanosis, or edema. NEURO: CN II-XII grossly intact, no focal deficits, no slurring of speech. - Urinary Catheter Management Indwelling Urethral Catheter Cath placed during this visit: yes Reason for continuing: Other continuation reason Insertion date: 04/06/18 Insertion time: 10:05 Results - Labs CBC & Chem 7: 04/11/18 07:34 04/11/18 07:34 Laboratory Results - last 24 hr 04/11/18 04/12/18 04/12/18 18:48 02:29 10:35 APTT 37.1 H 43.9 H 40.5 H Assessment and Plan - Plan Bilateral extensive pulmonary embolism Saddle embolism on CTA, risk factors were history of breast cancer and 2-month- old left hip fracture with repair Patient received TPA administration in the ER followed by management in ICU Continuing with IV heparin per PE protocol, patient may be discharged on her home dose of apixaban 5 mg PO BID Continue duo nebs every 6 hours Appreciate hematology/oncology consult Continue PT OT. Anticipate d/c to rehab. Case management following. Troponin elevation indicating right heart strain Elevation likely secondary to pulmonary embolism Elevated lactic acid level also secondary to tissue damage caused by pulmonary embolism 2D echocardiogram did not show any right ventricular dysfunction Patient gently rehydrated in the ICU Abdominal pain with nausea Exacerbated by activity and sitting upright CT angiogram of abdomen did not show evidence of ischemic bowel or vascular occlusions Continue with symptomatic treatment -Has outpt trading specialist who she will follow up with on discharge. h/o pancreatic mass CT abdomen pelvis showed stable 1.7 cm cystic mass in the distal body/tail of the pancreas. 1.5 cm indeterminate cystic lesion near the superior pole of the right kidney May be a contributor to her abdominal pain and nausea Follow-up as outpatient DVT prophylaxis Therapeutic heparin Discharge Planning: D/c to rehab when bed available
--- NOTE | 2018-04-12 19:04 | MB ---
cc: Levi Wong MD DATE: 04/12/2018 REASON FOR GI CONSULT: Evaluation of dry heaves, nausea. HISTORY OF PRESENT ILLNESS: This is an 87-year-old female who has a history of recent hip fractures 2 months ago, who presented to the emergency room with complaints of nausea, dry heaves, and shortness of breath. She also has been complaining of cough and some abdominal pain. Evaluation initially revealed a large saddle block embolus on CT pulmonary angiogram. The patient was admitted initially to the ICU, placed on anticoagulation therapy with TPA. Due to the extensive clot burden, she is currently receiving IV heparin. Troponins were noted to be elevated. This was probably secondary to right heart strain. The patient initially had lots of dry heaves and nausea. This has subsided somewhat according to the patient. Once again, she did have a left hip repair done 2 months ago. Apparently, she was not taking her anticoagulation therapy prior to this admission. She has been followed by Dr. Diaz in our practice. Apparently, she had a recent EGD that was reported unremarkable. I do not have the reports at this time. She has been receiving Zofran and PPI therapy. 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 She had a patent CYRIL, and radiologist felt this was not significant enough to cause mesenteric ischemic disease. No changes as such were noted on the imaging studies. She has been eating a small amount of late. The episodes of dry heaves can occur anytime with or without eating. I was asked to evaluate her further. PAST HISTORY: Extensive. She has had a partial colectomy in the past, lumpectomy, mastectomy, left breast cancer, right carotid endarterectomy, and a left hip repair surgery as stated above. SOCIAL HISTORY: She denies any alcohol. She is a former smoker. FAMILY HISTORY: Daughter had breast cancer. Otherwise, no significant GI history in the past. ALLERGIES: EXTENSIVE. THEY INCLUDE LORAZEPAM, DIAZEPAM, OXAZEPAM, LIDOCAINE. REVIEW OF SYSTEMS: A 12-point review of systems was stated in the HPI. She has had no gastrointestinal bleeding at this time. MEDICATIONS: 1. Enalapril. 2. Lasix. 3. Sertraline. 4. Bactrim. 5. Verapamil. 6. She is receiving IV heparin at this time. PHYSICAL EXAMINATION: GENERAL: Pleasant, well-developed female who is alert and oriented x3, no acute distress. VITAL SIGNS: Currently stable. She is afebrile, pulse is 80, blood pressure 132/64. SKIN: Warm and dry. No unusual rashes. HEENT: Normocephalic, atraumatic. Sclerae are anicteric. Oral mucosa slightly dry. NECK: Supple. No masses or JVD. CARDIAC: S1, S2. Regular rate and rhythm. LUNGS: Poor inspiratory effort, but otherwise clear. ABDOMEN: Soft, nontender. Bowel sounds are present. No organomegaly or masses. EXTREMITIES: Without clubbing, cyanosis, or edema. NEUROLOGIC: The patient appears to be grossly intact without focal deficits. LABORATORY DATA: Hemoglobin 10.5, white count normal. Liver enzymes are normal. Creatinine 0.83. Electrolytes are stable. IMPRESSION: 1. Extensive bilateral pulmonary emboli, on anticoagulation therapy. 2. Recent history of left hip surgery. 3. Persistent dry heaves, although improved of late. Etiology may be related to poor gastrointestinal motility, i.e., gastroparesis small bowel dysmotility, etc. There is a possibility there could be a role related to the angiographic study noted on CT angiogram and findings noted that study, although radiological impression was that this was not significant enough to cause ischemic disease. PLAN: 1. At this time, I have added Urecholine 25 mg half hour before meals and bedtime for motility purposes. If symptoms persist, we could consider adding Baclofen 5 mg b.i.d. or t.i.d. as well. I will continue other therapy at this time. Another option could be Reglan, but there would be more side effect issues such as tardive dyskinesias to be concerned with. I have discussed this with the patient. We will be glad to follow the patient with you. Thank you kindly for this consult. MD SHOAIB Mauricio/kylah , 06:09 PM , 06:20 PM
[2018-04-13 05:58] LABS: Hematocrit 30.8 % (35.0-46.0); Hemoglobin 10.1 gm/dL (11.6-15.3); Mean Corpuscular HGB Conc 32.9 % (32.0-36.0); Mean Corpuscular Hemoglobin 27.8 pg (27.0-34.0); Mean Corpuscular Volume 84.4 fL (80.0-100.0); Mean Platelet Volume 8.4 fL (7.0-11.0); Platelet Count 312 th/mm3 (150-450); Red Blood Count 3.64 mil/mm3 (4.00-5.30); Red Cell Distribution Width 15.6 % (11.6-17.2); White Blood Count 10.1 th/mm3 (4.0-11.0)
[2018-04-13 06:24] LABS: Albumin 2.6 g/dL (3.4-5.0); Calcium 8.7 mg/dL (8.5-10.1); Carbon Dioxide 34.6 meq/L (21.0-32.0); Magnesium 1.9 mg/dL (1.5-2.5); Potassium 3.8 meq/L (3.5-5.1)
[2018-04-13 06:27] LABS: Phosphorus 4.3 mg/dL (2.5-4.9); Total Protein 6.4 g/dL (6.4-8.2)
[2018-04-13] MEDS: Multivitamin/Minerals Therapeutic Tablet PO SCH (08:57)
[2018-04-13] MEDS: Furosemide 40 MG Tablet PO SCH (08:57)
[2018-04-13] MEDS: Famotidine 20 MG Tablet NG/OG SCH ×2 (08:58→21:37)
[2018-04-13] MEDS: Sertraline 50 MG Tablet PO SCH (08:59)
[2018-04-13] MEDS: Calcium/Vitamin D 250/125 MG Tablet PO SCH ×2 (09:01→21:39)
[2018-04-13] MEDS ORDERED: Sod Chloride 0.9% Inj 1,000 ML IV.CONT SCH (09:54)
--- NOTE | 2018-04-13 09:58 | P.PNIM ---
Subjective Interval history: The patient was sitting up in a chair. Her daughter was at the bedside. The patient said that she was not that perky this morning. She has not been dry heaving. She wanted to know if her lungs were clear. Discussed with nursing and case management. Physical Exam Vital signs: Vital Signs 04/12/18 10:00 04/12/18 10:16 04/12/18 12:00 Temperature 97.8 F Pulse Rate 70 78 84 Respiratory Rate 18 Blood Pressure 123/47 L Pulse Oximetry 94 L 04/12/18 12:36 04/12/18 14:00 04/12/18 15:00 Temperature Pulse Rate 86 72 76 Respiratory Rate Blood Pressure Pulse Oximetry 04/12/18 16:00 04/12/18 16:33 04/12/18 17:17 Temperature 98.0 F Pulse Rate 76 80 78 Respiratory Rate 16 Blood Pressure 132/64 Pulse Oximetry 94 L 04/12/18 19:00 04/12/18 20:00 04/12/18 21:00 Temperature 98.1 F Pulse Rate 82 73 80 Respiratory Rate 18 Blood Pressure 85/43 L Pulse Oximetry 98 93 L 04/12/18 22:00 04/12/18 22:28 04/12/18 23:00 Temperature Pulse Rate 76 72 Respiratory Rate Blood Pressure 119/45 L Pulse Oximetry 04/13/18 00:00 04/13/18 01:00 04/13/18 04:00 Temperature 98.6 F 98.7 F Pulse Rate 73 73 74 Respiratory Rate 18 20 Blood Pressure 90/46 L 115/52 L Pulse Oximetry 96 94 L 04/13/18 05:00 04/13/18 06:00 04/13/18 08:00 Temperature 98.2 F Pulse Rate 73 70 77 Respiratory Rate 18 Blood Pressure 146/60 H Pulse Oximetry 97 Intake & Output 04/12/18 04/13/18 04/13/18 18:59 06:59 18:59 Intake Total 870 / 870 240 / 240 Output Total 1400 / 1400 750 / 750 Balance -530 / -530 -510 / -510 Weight 78.7 kg Intake: IV 250 / 250 Heparin/D5W 25,000 U/250 mL 25, 250 / 250 000 unit In 250 ml @ 18 UNITS/ KG/HR 14.436 mls/hr IV.CONT TITRATE PRN Rx#:[id number] Oral 620 / 620 240 / 240 Output: Urine 1400 / 1400 750 / 750 Other: Date of Last Bowel Movement 04/11/18 04/11/18 # Bowel Movements 1 Narrative: GENERAL: No acute distress. SKIN: Warm and dry. No rashes. HEAD: Atraumatic, normocephalic. EYES: No scleral icterus. No injection or drainage. ENT: Moist mucous membranes, patent nares, no erythema of oropharynx. NECK: Supple, trachea midline. No JVD or lymphadenopathy. Normal thyroid. CARDIOVASCULAR: Regular rate and rhythm. No murmurs, gallops, or rubs. RESPIRATORY: Clear to auscultation bilaterally. No accessory muscle use. GASTROINTESTINAL: Abdomen soft, non-tender, nondistended, normal active bowel sounds MUSCULOSKELETAL: No cyanosis, or edema. NEURO: CN II-XII grossly intact, no focal deficits, no slurring of speech. - Urinary Catheter Management Indwelling Urethral Catheter Cath placed during this visit: yes Reason for continuing: Other continuation reason Insertion date: 04/06/18 Insertion time: 10:05 Results - Labs CBC & Chem 7: 04/13/18 05:44 04/13/18 05:44 Laboratory Results - last 24 hr 04/12/18 04/13/18 04/13/18 10:35 05:44 05:44 WBC 10.1 RBC 3.64 L Hgb 10.1 L Hct 30.8 L MCV 84.4 MCH 27.8 MCHC 32.9 RDW 15.6 Plt Count 312 MPV 8.4 APTT 40.5 H Sodium 139 Potassium 3.8 Chloride 97 L Carbon Dioxide 34.6 H Anion Gap 7 BUN 25 H Creatinine 1.05 H Estimated GFR 50 L Random Glucose 109 H Calcium 8.7 Phosphorus 4.3 Magnesium 1.9 Total Bilirubin 0.4 Direct Bilirubin 0.1 Indirect Bilirubin 0.3 AST 10 L ALT 10 Alkaline Phosphatase 85 Total Protein 6.4 D Albumin 2.6 L Lipase 114 04/13/18 05:44 WBC RBC Hgb Hct MCV MCH MCHC RDW Plt Count MPV APTT 42.1 H Sodium Potassium Chloride Carbon Dioxide Anion Gap BUN Creatinine Estimated GFR Random Glucose Calcium Phosphorus Magnesium Total Bilirubin Direct Bilirubin Indirect Bilirubin AST ALT Alkaline Phosphatase Total Protein Albumin Lipase Assessment and Plan - Plan Bilateral extensive pulmonary embolism Saddle embolism on CTA, risk factors were history of breast cancer and 2-month- old left hip fracture with repair. Patient received TPA administration in the ER followed by management in ICU -switch heparin gtt to apixaban 5 mg PO BID -Continue duo nebs every 6 hours -Appreciate hematology/oncology consult -Continue PT. Add OT. Anticipate d/c to rehab. Case management following. Troponin elevation indicating right heart strain Elevation likely secondary to pulmonary embolism Elevated lactic acid level also secondary to tissue damage caused by pulmonary embolism 2D echocardiogram did not show any right ventricular dysfunction -treatment as above Abdominal pain with nausea Exacerbated by activity and sitting upright CT angiogram of abdomen did not show evidence of ischemic bowel or vascular occlusions -Continue with symptomatic treatment -GI consult appreciated. Trial of bethanechol. h/o pancreatic mass CT abdomen pelvis showed stable 1.7 cm cystic mass in the distal body/tail of the pancreas. 1.5 cm indeterminate cystic lesion near the superior pole of the right kidney May be a contributor to her abdominal pain and nausea -Follow-up as outpatient DVT prophylaxis: Apixaban Discharge Planning: D/c to rehab when bed available
[2018-04-13] MEDS ORDERED: Influenza (Quadrivalent) Vaccine 0.5 ML Syringe IM ONE (13:00)
[2018-04-13 16:23] VITALS: RESP 18
--- NOTE | 2018-04-13 17:57 | P.PNGI ---
Subjective Interval history: Alert NAD poor po nausea on and off.....dry heaves better Physical Exam Vital signs: Vital Signs 04/12/18 19:00 04/12/18 20:00 04/12/18 21:00 Temperature 98.1 F Pulse Rate 82 73 80 Respiratory Rate 18 Blood Pressure 85/43 L Pulse Oximetry 98 93 L 04/12/18 22:00 04/12/18 22:28 04/12/18 23:00 Temperature Pulse Rate 76 72 Respiratory Rate Blood Pressure 119/45 L Pulse Oximetry 04/13/18 00:00 04/13/18 01:00 04/13/18 04:00 Temperature 98.6 F 98.7 F Pulse Rate 73 73 74 Respiratory Rate 18 20 Blood Pressure 90/46 L 115/52 L Pulse Oximetry 96 94 L 04/13/18 05:00 04/13/18 06:00 04/13/18 07:00 Temperature Pulse Rate 73 70 66 Respiratory Rate Blood Pressure Pulse Oximetry 93 L 04/13/18 08:00 04/13/18 09:00 04/13/18 10:00 Temperature 98.2 F Pulse Rate 72 78 84 Respiratory Rate 18 Blood Pressure 146/60 H Pulse Oximetry 97 04/13/18 11:00 04/13/18 12:00 04/13/18 13:00 Temperature 97.9 F Pulse Rate 81 80 76 Respiratory Rate 18 Blood Pressure 119/46 L Pulse Oximetry 93 L 04/13/18 14:00 04/13/18 14:38 04/13/18 16:00 Temperature 98.5 F Pulse Rate 80 80 78 Respiratory Rate 16 18 Blood Pressure 103/46 L Pulse Oximetry 97 94 L Intake & Output 04/12/18 04/13/18 04/13/18 18:59 06:59 18:59 Intake Total 870 / 870 240 / 240 225 / 225 Output Total 1400 / 1400 750 / 750 Balance -530 / -530 -510 / -510 225 / 225 Weight 78.7 kg Intake: IV 250 / 250 225 / 225 Heparin/D5W 25,000 U/250 mL 25, 250 / 250 225 / 225 000 unit In 250 ml @ 18 UNITS/ KG/HR 14.436 mls/hr IV.CONT TITRATE PRN Rx#:[id number] Oral 620 / 620 240 / 240 Output: Urine 1400 / 1400 750 / 750 Other: Date of Last Bowel Movement 04/11/18 04/13/18 # Bowel Movements 1 - Constitutional no acute distress - Routine HEENT Exam ENT: Present: mucous membranes moist - Routine Cardiovascular Exam Present: S1, S2 - Routine Abdominal Exam Present: soft, normoactive bowel sounds - Urinary Catheter Management Indwelling Urethral Catheter Cath placed during this visit: yes Reason for continuing: Other continuation reason Insertion date: 04/06/18 Insertion time: 10:05 Results - Labs CBC & Chem 7: 04/13/18 05:44 04/13/18 05:44 Laboratory Results - last 24 hr 04/13/18 04/13/18 04/13/18 05:44 05:44 05:44 WBC 10.1 RBC 3.64 L Hgb 10.1 L Hct 30.8 L MCV 84.4 MCH 27.8 MCHC 32.9 RDW 15.6 Plt Count 312 MPV 8.4 APTT 42.1 H Sodium 139 Potassium 3.8 Chloride 97 L Carbon Dioxide 34.6 H Anion Gap 7 BUN 25 H Creatinine 1.05 H Estimated GFR 50 L Random Glucose 109 H Calcium 8.7 Phosphorus 4.3 Magnesium 1.9 Total Bilirubin 0.4 Direct Bilirubin 0.1 Indirect Bilirubin 0.3 AST 10 L ALT 10 Alkaline Phosphatase 85 Total Protein 6.4 D Albumin 2.6 L Lipase 114 Assessment and Plan (1) Nausea Status: Acute Code(s): R11.0 - Nausea (2) Dry heaves Status: Acute Code(s): R11.10 - Vomiting, unspecified (3) Poor nutrition Status: Acute Code(s): E63.9 - Nutritional deficiency, unspecified (4) Poor nutrition Status: Acute Code(s): E63.9 - Nutritional deficiency, unspecified - Attending Attestation continue present therapy ?trial of elavil
--- NOTE | 2018-04-13 19:23 | P.PNONC ---
Subjective Interval history: Resting comfortably in bed. Continues to have GI symptoms. GI team following. Objective Vital Signs/Intake & Output: Vital Signs 04/12/18 20:00 04/12/18 21:00 04/12/18 22:00 Temperature 98.1 F Pulse Rate 73 80 76 Respiratory Rate 18 Blood Pressure 85/43 L Pulse Oximetry 93 L 04/12/18 22:28 04/12/18 23:00 04/13/18 00:00 Temperature 98.6 F Pulse Rate 72 73 Respiratory Rate 18 Blood Pressure 119/45 L 90/46 L Pulse Oximetry 96 04/13/18 01:00 04/13/18 04:00 04/13/18 05:00 Temperature 98.7 F Pulse Rate 73 74 73 Respiratory Rate 20 Blood Pressure 115/52 L Pulse Oximetry 94 L 04/13/18 06:00 04/13/18 07:00 04/13/18 08:00 Temperature 98.2 F Pulse Rate 70 66 72 Respiratory Rate 18 Blood Pressure 146/60 H Pulse Oximetry 93 L 97 04/13/18 09:00 04/13/18 10:00 04/13/18 11:00 Temperature Pulse Rate 78 84 81 Respiratory Rate Blood Pressure Pulse Oximetry 04/13/18 12:00 04/13/18 13:00 04/13/18 14:00 Temperature 97.9 F Pulse Rate 80 76 80 Respiratory Rate 18 Blood Pressure 119/46 L Pulse Oximetry 93 L 04/13/18 14:38 04/13/18 15:00 04/13/18 16:00 Temperature 98.5 F Pulse Rate 80 79 77 Respiratory Rate 16 18 Blood Pressure 103/46 L Pulse Oximetry 97 94 L 04/13/18 17:00 04/13/18 18:00 Temperature Pulse Rate 76 68 Respiratory Rate Blood Pressure Pulse Oximetry Intake & Output 04/13/18 04/13/18 04/14/18 06:59 18:59 06:59 Intake Total 240 / 240 1265 / 1265 Output Total 750 / 750 475 / 475 Balance -510 / -510 790 / 790 Weight 78.7 kg Intake: IV 725 / 725 Heparin/D5W 25,000 U/250 mL 25, 225 / 225 000 unit In 250 ml @ 18 UNITS/ KG/HR 14.436 mls/hr IV.CONT TITRATE PRN Rx#:[id number] NS Inj 1,000 ML @ 100 mls/hr IV 500 / 500 .CONT .Q10H CARIDAD Rx#:[id number] Oral 240 / 240 540 / 540 Output: Urine 750 / 750 475 / 475 Other: # Incontinent Voids 2 Date of Last Bowel Movement 04/13/18 # Bowel Movements 2 Result Diagrams: 04/13/18 05:44 04/13/18 05:44 Laboratory Results: Laboratory Results - last 24 hr 04/13/18 04/13/18 04/13/18 05:44 05:44 05:44 WBC 10.1 RBC 3.64 L Hgb 10.1 L Hct 30.8 L MCV 84.4 MCH 27.8 MCHC 32.9 RDW 15.6 Plt Count 312 MPV 8.4 APTT 42.1 H Sodium 139 Potassium 3.8 Chloride 97 L Carbon Dioxide 34.6 H Anion Gap 7 BUN 25 H Creatinine 1.05 H Estimated GFR 50 L Random Glucose 109 H Calcium 8.7 Phosphorus 4.3 Magnesium 1.9 Total Bilirubin 0.4 Direct Bilirubin 0.1 Indirect Bilirubin 0.3 AST 10 L ALT 10 Alkaline Phosphatase 85 Total Protein 6.4 D Albumin 2.6 L Lipase 114 Medications: Active Medications Generic Name Dose Route Start Last Admin Trade Name Freq PRN Reason Stop Dose Admin Albuterol 1 ampul 04/06/18 09:21 04/13/18 14:37 Duoneb Neb (Prn) NEB 1 ampul Q4HR NEB PRN Administration SHORTNESS OF BREATH Apixaban 5 mg 04/13/18 09:45 04/13/18 10:05 Eliquis PO 5 mg BID CARIDAD Administration Bethanechol Chloride 25 mg 04/12/18 18:00 04/13/18 17:10 Urecholine PO 25 mg QID CARIDAD Administration Calcium/Vitamin D 2 tab 04/07/18 09:00 04/13/18 09:01 Oscal With D 250/125 Mg PO 2 tab BID CARIDAD Administration Enalapril Maleate 10 mg 04/07/18 09:00 04/13/18 08:56 Vasotec PO 10 mg DAILY CARIDAD Administration Famotidine 10 mg 04/06/18 21:00 04/13/18 08:58 Pepcid NG/OG 10 mg BID CARIDAD Administration Furosemide 40 mg 04/07/18 09:00 04/13/18 08:57 Lasix PO 40 mg DAILY CARIDAD Administration Sodium Chloride 500 mls @ 0 mls/hr 04/09/18 23:45 04/10/18 05:16 Ns Inj IV.SIG Infused BOLUS CARIDAD Infusion Wide Open Multivitamins/Minerals 1 tab 04/07/18 09:00 04/13/18 08:57 Theragran-M PO 1 tab DAILY CARIDAD Administration Ondansetron HCl 4 mg 04/10/18 14:33 04/13/18 11:20 Zofran Inj IV.PUSH 4 mg Q6H PRN Administration NAUSEA OR VOMITING Pantoprazole Sodium 40 mg 04/07/18 09:00 04/13/18 08:58 Protonix PO 40 mg DAILY CARIDAD Administration Potassium Chloride 10 meq 04/07/18 09:00 04/13/18 08:56 Klor-Con 10 PO 10 meq DAILY CARIDAD Administration Sertraline HCl 25 mg 04/07/18 09:00 04/13/18 08:59 Zoloft PO 25 mg DAILY CARIDAD Administration Sodium Chloride 2 ml 04/06/18 07:25 04/08/18 21:02 Ns Flush IV.FLUSH 2 ml PRN PRN Administration FLUSH AFTER USING IV ACCESS Objective Remarks: GENERAL: elderly lady in no distress SKIN: Warm and dry. HEAD: Normocephalic. EYES: No scleral icterus. No injection or drainage. NECK: Supple, trachea midline. No JVD or lymphadenopathy. Respiratory No accessory muscle use. GASTROINTESTINAL: Abdomen soft, non-tender, nondistended. EXTREMITIES: No edema MUSCULOSKELETAL: Adequate muscle tone. NEUROLOGICAL: No obvious focal deficit. Awake, alert, and oriented x3. PSYCHIATRIC: Appropriate mood and affect; insight and judgment normal. Assessment/Plan - Plan 1. Provoked pulmonary embolism, s/p TPA, continues on heparin drip, APTT therapeutic. She will need to be discharged on apixaban 5 mg PO BID. Once she is ready for hospital discharge would transition to oral anticoagulation.
[2018-04-13] MEDS ORDERED: Amitriptyline 10 MG Tablet PO SCH (21:00)
[2018-04-13] MEDS: Sodium Chloride 0.9% 2 ML Flush BID IV.FLUSH SCH (21:39)
[2018-04-13] MEDS: Acetaminophen 325 MG Tablet PO PRN (21:46)
[2018-04-14 07:50] LABS: Calcium 8.7 mg/dL (8.5-10.1); Carbon Dioxide 33.6 meq/L (21.0-32.0); Potassium 3.8 meq/L (3.5-5.1)
[2018-04-14] MEDS: Calcium/Vitamin D 250/125 MG Tablet PO SCH (08:13)
[2018-04-14] MEDS: Multivitamin/Minerals Therapeutic Tablet PO SCH (08:13)
[2018-04-14] MEDS: Acetaminophen 325 MG Tablet PO PRN ×2 (08:14→14:36)
[2018-04-14] MEDS: Famotidine 20 MG Tablet NG/OG SCH (08:15)
[2018-04-14] MEDS: Sodium Chloride 0.9% 2 ML Flush BID IV.FLUSH SCH (08:17)
[2018-04-14] MEDS: Sertraline 50 MG Tablet PO SCH (08:18)
[2018-04-14 10:12] VITALS: TEMP 98
--- NOTE | 2018-04-14 11:49 | P.DS ---
Date of admission: 04/06/18 09:15 Primary care physician: Do Arjun Crockett Anticipated date of discharge: 04/14/18 Brief History from admission: Patient is 87-year-old female with past medical history significant for breast cancer, CKD, recent hip fracture status post ORIF 2 months ago 2017, who presented to the emergency department with complaints of nausea and dry heaving. According to the daughter patient had loss of appetite and had been complaining a cough and abdominal pain. Oxygen saturation at home yesterday was 88% -90%. She has not had any of her home medications in 2 days due to the nausea. According to the previous discharge notes after ORIF L hip, patient was placed on anticoagulation for 4 weeks post hip replacement. ER workup included CT pulmonary angiogram due to hypoxia and shortness of breath, and CT abdomen pelvis. This showed extensive bilateral pulmonary embolus. I was contacted for ICU admission. With significant clot burden case was discussed with invasive radiology Dr. Jonathan Magallanes. It was my opinion and he agreed that patient will benefit from TPA due to extensive clot burden. There was also troponin elevation indicating right heart strain. Echo is pending. I discussed with Dr. Young in [facility] ED, and patient was administered TPA 10 mg bolus followed by 40 mg infusion over 1 hour for a total dose of 50 mg IV per MOPETT trial recommendations. Patient was already started on IV heparin infusion and this will be continued at thousand units per hour for 6 hours post TPA and then will be titrated according to PE protocol. Risk of bleeding from her left hip repair done almost 2 months ago is minimal and benefit outweighs risks in this case. I evaluated patient in [facility] ICU, s/p TPA. Her shortness of breath and dry heaves are improving. My bedside echo exam did not show RV dysfunction. Patient update on day of discharge: The patient was sitting up in a chair. She denied any dry heaving. Discussed with case management. DS: Diagnosis - Discharge Diagnosis (1) Acute pulmonary embolism Status: Acute DS: Summary Hospital Course: Bilateral extensive pulmonary embolism Saddle embolism on CTA, risk factors were history of breast cancer and 2-month- old left hip fracture with repair. Patient received TPA administration in the ER followed by management in ICU. She was started on a heparin gtt. Hematology was consulted. We continued oxygen and Duonebs. She worked with PT and OT. SNF was recommended. Case management was consulted. We switched the heparin gtt to apixaban 5 mg PO BID per hematology recommendations. She will follow up with hematology as an outpt. Troponin elevation Elevation likely secondary to pulmonary embolism. 2D echocardiogram did not show any right ventricular dysfunction. She received treatment as above. Abdominal pain with nausea Exacerbated by activity and sitting upright. CT angiogram of abdomen did not show evidence of ischemic bowel or vascular occlusions. GI was consulted. The pt was started on bethanechol and Elavil. She will follow up with GI as an outpt. H/o pancreatic mass CT abdomen pelvis showed stable 1.7 cm cystic mass in the distal body/tail of the pancreas; 1.5 cm indeterminate cystic lesion near the superior pole of the right kidney. She will follow-up with her PCP upon discharge. Follow up imaging recommended in six months. - Time Spent with Patient Total time spent providing and/or coordinating discharge services: Greater than 30 minutes Exam Vital signs: Vital Signs 04/13/18 12:00 04/13/18 13:00 04/13/18 14:00 Temperature 97.9 F Pulse Rate 80 76 80 Respiratory Rate 18 Blood Pressure 119/46 L Pulse Oximetry 93 L 04/13/18 14:38 04/13/18 15:00 04/13/18 16:00 Temperature 98.5 F Pulse Rate 80 79 77 Respiratory Rate 16 18 Blood Pressure 103/46 L Pulse Oximetry 97 94 L 04/13/18 17:00 04/13/18 18:00 04/13/18 19:00 Temperature Pulse Rate 76 68 81 Respiratory Rate Blood Pressure Pulse Oximetry 96 04/13/18 20:00 04/13/18 21:00 04/13/18 22:00 Temperature 98.1 F Pulse Rate 74 74 72 Respiratory Rate 18 Blood Pressure 106/49 L Pulse Oximetry 96 04/13/18 23:00 04/14/18 00:00 04/14/18 01:00 Temperature 98.8 F Pulse Rate 80 70 64 Respiratory Rate 18 Blood Pressure 116/49 L Pulse Oximetry 96 04/14/18 02:00 04/14/18 03:00 04/14/18 04:00 Temperature 97.8 F Pulse Rate 64 64 69 Respiratory Rate 18 Blood Pressure 132/51 L Pulse Oximetry 96 04/14/18 05:00 04/14/18 06:00 04/14/18 07:00 Temperature Pulse Rate 64 69 64 Respiratory Rate Blood Pressure Pulse Oximetry 04/14/18 08:00 Temperature 98.0 F Pulse Rate 76 Respiratory Rate 18 Blood Pressure 132/56 L Pulse Oximetry 95 Intake & Output 04/13/18 04/14/18 04/14/18 18:59 06:59 18:59 Intake Total 1265 / 1265 320 / 320 Output Total 475 / 475 500 / 500 Balance 790 / 790 -180 / -180 Weight 78.1 kg Intake: IV 725 / 725 Heparin/D5W 25,000 U/250 mL 25, 225 / 225 000 unit In 250 ml @ 18 UNITS/ KG/HR 14.436 mls/hr IV.CONT TITRATE PRN Rx#:[id number] NS Inj 1,000 ML @ 100 mls/hr IV 500 / 500 .CONT .Q10H CARIDAD Rx#:[id number] Oral 540 / 540 320 / 320 Output: Urine 475 / 475 500 / 500 Other: # Incontinent Voids 2 Date of Last Bowel Movement 04/13/18 04/13/18 04/14/18 # Bowel Movements 2 Narrative: GENERAL: No acute distress. SKIN: Warm and dry. No rashes. HEAD: Atraumatic, normocephalic. EYES: No scleral icterus. No injection or drainage. ENT: Moist mucous membranes, patent nares, no erythema of oropharynx. NECK: Supple, trachea midline. No JVD or lymphadenopathy. Normal thyroid. CARDIOVASCULAR: Regular rate and rhythm. No murmurs, gallops, or rubs. RESPIRATORY: Clear to auscultation bilaterally. No accessory muscle use. GASTROINTESTINAL: Abdomen soft, non-tender, nondistended, normal active bowel sounds MUSCULOSKELETAL: No cyanosis, or edema. NEURO: CN II-XII grossly intact, no focal deficits, no slurring of speech. Results Procedures completed during hospitalization: See hospital course Labs on day of discharge: Labs from last 24 hours 04/14/18 06:50 Sodium 140 Potassium 3.8 Chloride 98 Carbon Dioxide 33.6 H Anion Gap 8 BUN 21 H Creatinine 0.91 Estimated GFR 59 L Random Glucose 101 Calcium 8.7 - Impressions ITS Impressions Abdomen/Pelvis CT 04/06/18 07:25 CONCLUSION: 1. No acute CT abnormality in the abdomen or pelvis. 2. Stable 1.7 cm cystic mass in the distal body/tail of the pancreas. Endoscopic ultrasound with fine-needle aspiration may be performed although more typically performed in faster growing cysts. Consider follow-up examination in 6 months. 3. 1.5 cm indeterminate cystic lesion near the superior pole of the right kidney. This can also be further evaluated on follow-up examination performed from the pancreatic lesion. 4. Ancillary findings include colonic diverticulosis, very small fat- containing periumbilical anterior abdominal wall hernia, focal fat near the falciform ligament, and degenerative spondylosis of the lumbar spine. Chest CTA 04/06/18 07:25 CONCLUSION: 1. Extensive pulmonary embolus. There is bilateral embolic disease. 2. COPD changes. 3. 1.7 cm cystic lesion in the tail of pancreas incompletely evaluated. Chest X-Ray 04/06/18 07:25 CONCLUSION: 1. No acute abnormality or significant interval change. Abdomen CTA 04/10/18 00:00 CONCLUSION: 1. 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 Although involvement of 2 of the 3 mesenteric vessels can result in postprandial mesenteric ischemia symptoms, overall degree of involvement does not appear severe enough to result in severe acute mesenteric ischemia. There is also no definitive CT evidence for bowel ischemia, infarction or perforation at this time. 2. Moderate colonic diverticulosis with mild diverticulitis in the distal descending colon. No abscess or perforation. 3. Stable 1.9 cm cyst in the distal body/tail of the pancreas. Follow-up recommendations similar to recent CT exam. 4. 2 cm indeterminate density cystic lesion in the superior pole the right kidney which can be further evaluated with renal mass protocol MRI exam as clinically warranted. Alternatively, follow-up examination may be obtained in 6- 12 months. 5. Additional ancillary findings, as above. Discharge Plan - Discharge Disposition Patient Disposition: 03 Discharge to SNF - Discharge Condition Condition: Stable - Discharge Order Discharge Orders: Discharge Order (Routine); Ordered 04/14/18 Ordered By: Donnie Ochoa - Discharge Details Anticipated Discharge Date: 04/14/18 - Physicians Team Primary Care Provider: Do Arjun Crockett Attending Provider: Donnie Ochoa Other Providers: Jocelyne Ho ; Levi Wong MD ; [facility] [place], [place]
[2018-04-14 16:38] VITALS: BP 103/49
[2018-04-14 18:27] VITALS: PULSE 70
[2018-04-14 20:50] VITALS: O2SAT 97
== END 2018-04-14 20:50 ==
LOC: PHED 07:00 → PHEDA 09:15 → HIMC 12:20 → HCIS 04-08 18:42
PROVIDERS: ADMIT Hospitalist; ATTEND Hospitalist

== ENCOUNTER 2018-07-13 01:14 | Inpatient (IN) ==
[2018-07-13 03:09] LABS: Baso # (Auto) 0.1 th/mm3 (0.0-0.2); Baso % (Auto) 0.4 % (0.0-2.0); Eos % (Auto) 0.1 % (0.0-4.0); Lymph # (Auto) 1.9 th/mm3 (1.0-4.8); Lymph % (Auto) 11.7 % (9.0-44.0); Mean Corpuscular HGB Conc 32.5 % (32.0-36.0); Mean Corpuscular Hemoglobin 26.6 pg (27.0-34.0); Mean Corpuscular Volume 81.8 fL (80.0-100.0); Mean Platelet Volume 9.4 fL (7.0-11.0); Mono # (Auto) 1.3 th/mm3 (0.0-0.9); Neut # (Auto) 12.9 th/mm3 (1.8-7.7); Neut % (Auto) 79.8 % (16.0-70.0); Platelet Count 302 th/mm3 (150-450); Red Blood Count 4.89 mil/mm3 (4.00-5.30); Red Cell Distribution Width 16.1 % (11.6-17.2); White Blood Count 16.2 th/mm3 (4.0-11.0)
--- NOTE | 2018-07-13 03:16 | XR ---
EXAM DATE: 07/13/2018 2:51 AM EST AGE/SEX: 88 years / Female INDICATIONS: Cough, chest congestion. CLINICAL DATA: This is the patient's initial encounter. Patient reports that signs and symptoms have been present for 1 day and indicates a pain score of 0/10. MEDICAL/SURGICAL HISTORY: Hypertension. None. COMPARISON: [facility]PO, CHEST 1V SINGLE AP, 04/06/2018. . FINDINGS: A single AP view of the chest demonstrates the lungs to be symmetrically aerated without evidence of mass, infiltrate or effusion. The cardiomediastinal contours are unremarkable. Osseous structures a re intact. CONCLUSION: No acute cardiopulmonary process. Electronically signed by: Pa Glez MD Board Certified Radiologist 07/13/2018 3:14 AM EST
[2018-07-13 03:21] LABS: Chloride 100 meq/L (98-107); Potassium 3.8 meq/L (3.5-5.1); Sodium 135 meq/L (136-145)
[2018-07-13 03:25] LABS: Albumin 3.7 g/dL (3.4-5.0); Anion Gap 8 meq/L (5-15); Blood Urea Nitrogen 19 mg/dL (7-18); Calcium 8.9 mg/dL (8.5-10.1); Carbon Dioxide 27.1 meq/L (21.0-32.0); Glucose,Random 157 mg/dL (74-106)
[2018-07-13 03:28] LABS: Alanine Aminotransferase 10 U/L (10-53)
[2018-07-13 03:29] LABS: Aspartate Aminotransferase 16 U/L (15-37); Glomerular Filtration Rate 39 mL/min (>89)
[2018-07-13 03:30] LABS: Total Protein 7.9 g/dL (6.4-8.2)
[2018-07-13 03:31] LABS: Alkaline Phosphatase 113 U/L (45-117)
[2018-07-13 03:47] LABS: Bilirubin,Urine Negative (Negative); Clarity,Urine Clear (Clear); Color,Urine Yellow (Yellw/Straw); Glucose,Urine (UA) Negative (Negative); Leukocyte Esterase,Urine Negative (Negative); Nitrite,Urine Negative (Negative); Specific Gravity,Urine 1.015 (1.002-1.035); Urobilinogen,Urine 0.2 mg/dL (Less than 2)
[2018-07-13 03:53] LABS: Bacteria,Urine Few /hpf; Squamous Epithelial Cell,Urine 0-5 /hpf (0-5); WBC,Urine 0-5 /hpf (0-5)
[2018-07-13] MEDS ORDERED: Azithromycin Inj 500 MG in Sodium Chlor 0.9% Inj 250 ML IV.SIG ONE (04:17)
--- NOTE | 2018-07-13 04:24 | ED ---
HPI General Chief Complaint: Respiratory Symptoms Stated Complaint: Chest congestion x 1 day,sick for a week Time Seen by Provider: 07/13/18 04:34 Source: patient and family Mode of arrival: ambulatory Limitations: no limitations History of Present Illness HPI Narrative: 88-year-old female presents to the emergency department for progressive worsening congestion and cough productive of green sputum over the past week with worsening symptoms today. Caregiver is the patient's daughter who has felt the patient's forehead for subjective fever but has not actually checked her temperature. Patient has had recent illness and has had multiple hospitalizations. Patient had hip fracture in February diagnosed with pulmonary March after hip surgery remote history of breast cancer and brain tumor that is benign also history of chronic kidney disease hypertension and anxiety depression. No recent dysuria frequency urgency or urinary frequency. No recent diarrhea. No complaint of chest pain or abdominal pain. Pneumovax and flu vaccine current. Patient's daughter who is the caregiver states she has not missed any of her Eliquis. Patient presents now for further evaluation concerning for possible sepsis related to pneumonia or urinary tract infection. MD Complaint: Reports cough and nasal congestion Onset (ago): week(s) (1) Duration: constant and progressively worsening (today) Severity: severe Relieving factors: nothing Exacerbating factors: exertion Description of mucous: Reports green Able to tolerate fluids by mouth: Yes Context: Denies sick contacts, recent travel, recent dental work and multiple patients with similar complaints Associated symptoms: Reports chills, myalgias, nasal congestion, cough and shortness of breath Treatments prior to arrival: Reports none Related Data Home Medications Medication Instructions Recorded Confirmed calcium carbonate-vitamin D3 1 tab PO BID 02/12/18 07/13/18 [Calcium 600 + D(3)] enalapril maleate 10 mg PO DAILY 02/12/18 07/13/18 [id number]-lutein 1 tab PO DAILY 02/12/18 07/13/18 [Centrum Silver] omeprazole 40 mg PO DAILY 02/12/18 07/13/18 potassium chloride 10 meq PO DAILY 02/12/18 07/13/18 psyllium seed (sugar) [Metamucil 1 tbsp PO DIRECTED 02/12/18 07/13/18 (sugar)] furosemide 40 mg PO DAILY 04/06/18 07/13/18 sertraline 25 mg PO DAILY 04/06/18 07/13/18 acetaminophen [Mapap 650 mg PO Q6H PRN 07/13/18 07/13/18 (acetaminophen)] Previous Rx's Medication Instructions Recorded amitriptyline 10 mg PO HS tab 04/14/18 apixaban [Eliquis] 5 mg PO BID tab 04/14/18 bethanechol chloride [Urecholine] 25 mg PO QID tab 04/14/18 Allergies Allergy/AdvReac Type Severity Reaction Status Date / Time alendronate sodium Allergy Severe Muscle Pain Verified 07/13/18 02:27 lidocaine Allergy Severe Hives Verified 07/13/18 02:27 anastrozole AdvReac Severe Nausea/Vomi Verified 07/13/18 02:27 ting alprazolam AdvReac Mild MOOD EFFECT Verified 07/13/18 02:27 brompheniramine AdvReac Mild Nausea Verified 07/13/18 02:27 clonazepam AdvReac Mild MOOD EFFECT Verified 07/13/18 02:27 clorazepate dipotassium AdvReac Mild MOOD EFFECT Verified 07/13/18 02:27 diazepam AdvReac Mild MOOD EFFECT Verified 07/13/18 02:27 lorazepam AdvReac Mild MOOD EFFECT Verified 07/13/18 02:27 midazolam AdvReac Mild MOOD EFFECT Verified 07/13/18 02:27 oxazepam AdvReac Mild MOOD EFFECT Verified 07/13/18 02:27 temazepam AdvReac Mild MOOD EFFECT Verified 07/13/18 02:27 Review of Systems ROS: all other systems reviewed are negative [facility] Medical History Medical History Brain cancer (Acute) Pulmonary embolism (Acute) CKD (chronic kidney disease), stage III (Acute) Carpal tunnel syndrome of right wrist (Acute) Cataract (Acute) History of trigger finger (Acute) Hx of fracture of left hip (Acute) Surgical History Surgical History History of suburethral sling procedure (Acute) S/P carotid endarterectomy (Acute) History of colon surgery (Acute) History of colonoscopy (Acute) History of hemorrhoidectomy (Acute) History of lumpectomy (Acute) History of partial colectomy (Acute) History of partial mastectomy of left breast (Acute) History of right-sided carotid endarterectomy (Acute) Family History Family History Daughter Breast cancer Social History Social History Substance History: No History of Abuse Second Hand Smoke Exposure: No Smoking Status: Former smoker Tobacco Type: Cigarettes How Often Do You Have a Drink Containing Alcohol: Never Recent Out of Country Travel within the Last 8 Weeks: No Immunization History Tetanus Immunization: <5 Years Tetanus Immunization Year if Known: 2018 Exam Narrative Exam Narrative: GENERAL: Well-nourished, well-developed patient. SKIN: Focused skin assessment warm/dry. HEAD: Normocephalic. EYES: No scleral icterus. No injection or drainage. NECK: Supple, trachea midline. No JVD or lymphadenopathy. CARDIOVASCULAR: Regular rate and rhythm without murmurs, gallops, or rubs. RESPIRATORY: Breath sounds equal bilaterally except left base crackles. No accessory muscle use. GASTROINTESTINAL: Abdomen soft, non-tender, nondistended. MUSCULOSKELETAL: No cyanosis, or edema. BACK: Nontender without obvious deformity. No CVA tenderness. Course Initial Documented Vital Signs Temperature 99.1 F 07/13/18 01:21 Pulse Rate 111 H 07/13/18 01:21 Respiratory Rate 22 07/13/18 01:21 Blood Pressure 128/60 07/13/18 01:21 Pulse Oximetry 92 L 07/13/18 01:21 Last Documented Vital Signs Temperature 99.1 F 07/13/18 01:21 Pulse Rate 119 H 07/13/18 02:00 Respiratory Rate 42 H 07/13/18 02:00 Blood Pressure 158/79 H 07/13/18 02:00 Pulse Oximetry 95 07/13/18 02:00 Medical Decision Making MDM Narrative Medical decision making narrative: 88-year-old female with 1 week of head cold symptoms with worsening today and chest congestion worsening today caregiver does not know if she has had a fever but suspects that she may have she is felt warm. Patient placed on fatback trimmer IV access obtained specimens collected and sent for resulting IV fluids along with IV antibiotics administered Patient is noted to have elevated heart rate of 119 elevated respiratory rate of 42 temperature of 99.1 white count of 16,000 with left shift and lactic acid elevated. Given Rocephin and azithromycin for community-acquired pneumonia. Sputum is green and specimens sent for culture and sensitivity. Patient will be admitted for sepsis and probable pneumonia although pneumonia is not identified on chest x-ray Medical Screen Exam Complete: Yes Emergency Medical Condition: Yes Differential Diagnosis Differential Diagnosis: Upper respiratory infection bronchitis pneumonia CHF ACS sepsis Medical Records Medical records reviewed: Yes I reviewed the patient's medical records. Lab Data Lab results reviewed: Yes I reviewed the patient's lab results. Result diagrams: 07/13/18 02:30 07/13/18 02:30 Lab Results 07/13/18 07/13/18 07/13/18 Range/Units 02:30 02:30 02:30 CBC w Diff Auto diff final WBC 16.2 H (4.0-11.0) th/mm3 RBC 4.89 (4.00-5.30) mil/mm3 Hgb 13.0 (11.6-15.3) gm/dL Hct 40.0 (35.0-46.0) % MCV 81.8 (80.0-100.0) fL MCH 26.6 L (27.0-34.0) pg MCHC 32.5 (32.0-36.0) % RDW 16.1 (11.6-17.2) % Plt Count 302 (150-450) th/mm3 MPV 9.4 (7.0-11.0) fL Neut % (Auto) 79.8 H (16.0-70.0) % Lymph % (Auto) 11.7 (9.0-44.0) % Luna % (Auto) 8.0 (0.0-8.0) % Eos % (Auto) 0.1 (0.0-4.0) % Baso % (Auto) 0.4 (0.0-2.0) % Neut # (Auto) 12.9 H (1.8-7.7) th/mm3 Lymph # (Auto) 1.9 (1.0-4.8) th/mm3 Luna # (Auto) 1.3 H (0.0-0.9) th/mm3 Eos # (Auto) 0.0 (0.0-0.4) th/mm3 Baso # (Auto) 0.1 (0.0-0.2) th/mm3 WBC Differential . Differential Comment . Sodium 135 L (136-145) meq/L Potassium 3.8 (3.5-5.1) meq/L Chloride 100 (98-107) meq/L Carbon Dioxide 27.1 (21.0-32.0) meq/L Anion Gap 8 (5-15) meq/L BUN 19 H (7-18) mg/dL Creatinine 1.30 H (0.50-1.00) mg/dL Estimated GFR 39 L (>89) mL/min Random Glucose 157 H (74-106) mg/dL Lactic Acid 2.7 H (0.4-2.0) mmol/L Calcium 8.9 (8.5-10.1) mg/dL Total Bilirubin 0.7 (0.2-1.0) mg/dL AST 16 (15-37) U/L ALT 10 (10-53) U/L Alkaline Phosphatase 113 (45-117) U/L Total Protein 7.9 (6.4-8.2) g/dL Albumin 3.7 (3.4-5.0) g/dL Urine Color (Yellw/Straw) Urine Clarity (Clear) Urine pH (5.0-8.5) Ur Specific [place] (1.002-1.035) Urine Protein (Neg-Trace) mg/dL Urine Glucose (UA) (Negative) mg/dL Urine Ketones (Negative) mg/dL Urine Occult Blood (Negative) Urine Nitrate (Negative) Urine Bilirubin (Negative) Urine Urobilinogen (Less than 2) mg/dL Ur Leukocyte Esterase (Negative) Urine WBC (0-5) /hpf Ur Squamous Epith Cells (0-5) /hpf Urine Bacteria (None) /hpf Micro UA Comment Ur Microscopic Review Urine Culture Comments 07/13/18 Range/Units 03:30 CBC w Diff WBC (4.0-11.0) th/mm3 RBC (4.00-5.30) mil/mm3 Hgb (11.6-15.3) gm/dL Hct (35.0-46.0) % MCV (80.0-100.0) fL MCH (27.0-34.0) pg MCHC (32.0-36.0) % RDW (11.6-17.2) % Plt Count (150-450) th/mm3 MPV (7.0-11.0) fL Neut % (Auto) (16.0-70.0) % Lymph % (Auto) (9.0-44.0) % Luna % (Auto) (0.0-8.0) % Eos % (Auto) (0.0-4.0) % Baso % (Auto) (0.0-2.0) % Neut # (Auto) (1.8-7.7) th/mm3 Lymph # (Auto) (1.0-4.8) th/mm3 Luna # (Auto) (0.0-0.9) th/mm3 Eos # (Auto) (0.0-0.4) th/mm3 Baso # (Auto) (0.0-0.2) th/mm3 WBC Differential Differential Comment Sodium (136-145) meq/L Potassium (3.5-5.1) meq/L Chloride (98-107) meq/L Carbon Dioxide (21.0-32.0) meq/L Anion Gap (5-15) meq/L BUN (7-18) mg/dL Creatinine (0.50-1.00) mg/dL Estimated GFR (>89) mL/min Random Glucose (74-106) mg/dL Lactic Acid (0.4-2.0) mmol/L Calcium (8.5-10.1) mg/dL Total Bilirubin (0.2-1.0) mg/dL AST (15-37) U/L ALT (10-53) U/L Alkaline Phosphatase (45-117) U/L Total Protein (6.4-8.2) g/dL Albumin (3.4-5.0) g/dL Urine Color Yellow (Yellw/Straw) Urine Clarity Clear (Clear) Urine pH 7.0 (5.0-8.5) Ur Specific [place] 1.015 (1.002-1.035) Urine Protein Trace (Neg-Trace) mg/dL Urine Glucose (UA) Negative (Negative) mg/dL Urine Ketones Negative (Negative) mg/dL Urine Occult Blood Negative (Negative) Urine Nitrate Negative (Negative) Urine Bilirubin Negative (Negative) Urine Urobilinogen 0.2 (Less than 2) mg/dL Ur Leukocyte Esterase Negative (Negative) Urine WBC 0-5 (0-5) /hpf Ur Squamous Epith Cells 0-5 (0-5) /hpf Urine Bacteria Few H (None) /hpf Micro UA Comment Cath-culture ind Ur Microscopic Review Microscopic reviewed Urine Culture Comments Cath-cult indicated Imaging Data Radiologist's impression: Chest X-Ray 07/13/18 02:44 CONCLUSION: No acute cardiopulmonary process. ECG Data EKG Prior to Arrival: No Attestation: I personally reviewed and interpreted this ECG as follows: (EKG: Sinus tachycardia rate [address] elevation injury pattern change noted rare unifocal PVC age-indeterminate inferior Q wave) Discharge Plan Discharge Disposition Patient Disposition: ED Admit(ED Internal Use Only) Discharge Condition Condition: Stable Discharge Details Diagnosis: Sepsis, History of pulmonary embolus (PE) Physicians Team ED Provider: Courtney Beckett Primary Care Provider: Do Arjun Crockett Rxs /Orders / Referrals /Forms Prescriptions: No Action furosemide 40 mg Tablet 40 mg PO DAILY RF: 0 sertraline 25 mg Tablet 25 mg PO DAILY RF: 0 bethanechol chloride [Urecholine] 25 mg Tablet 25 mg PO QID RF: 0 amitriptyline 10 mg Tablet 10 mg PO HS RF: 0 apixaban [Eliquis] 5 mg Tablet 5 mg PO BID RF: 0 enalapril maleate 10 mg Tablet 10 mg PO DAILY RF: 0 potassium chloride 10 mEq Tablet Extended Release 10 meq PO DAILY RF: 0 omeprazole 40 mg Capsule,Delayed Release(Dr/Ec) 40 mg PO DAILY RF: 0 psyllium seed (sugar) [Metamucil (sugar)] Powder 1 tbsp PO DIRECTED RF: 0 [id number]-lycopen-lutein [Centrum Silver] 0.4-300-250 mg-mcg-mcg Tablet 1 tab PO DAILY RF: 0 calcium carbonate-vitamin D3 [Calcium 600 + D(3)] 600 mg(1,500mg) -400 unit Tablet 1 tab PO BID RF: 0 acetaminophen [Mapap (acetaminophen)] 325 mg Tablet 650 mg PO Q6H PRN (Reason: Acute Pain) RF: 0 Discharge Interventions Interventions: Vital Signs Last Done: 07/13/18 01:21 Status ED Status: With Doctor
[2018-07-13] MEDS ORDERED: Sodium Chlor 0.9% Inj 250 ML IV.SIG SCH (05:00)
[2018-07-13] MEDS ORDERED: Sodium Chlor 0.9% Inj 500 ML IV.SIG SCH (05:00)
[2018-07-13] MEDS ORDERED: Enoxaparin Inj 40 MG/0.4 ML Syringe SQ SCH (05:00)
[2018-07-13] MEDS: Senna/Docusate Sodium 8.6/50 MG Tablet PO SCH ×2 (10:58→21:03)
--- NOTE | 2018-07-13 15:41 | ECG ---
Date Performed: 07/13/2018 Time Performed: 02:55:05 PTAGE: 88 years EKG: SUPRAVENTRICULAR TACHYCARDIA POSSIBLE INFERIOR MYOCARDIAL INFARCTION OCCASIONAL PREMATURE V ENTRICULAR CONTRACTIONS ABNORMAL ECG Compared to PREVIOUS TRACING , premature ventricular contractions are new. The criteria for the possi ble old inferior wall infarction are new. Clinical correlation will be important PREVIOUS TRACIN 08.29 DOCTOR: Karen Reyes Interpretating Date/Time 07/13/2018 15:39:32
--- NOTE | 2018-07-13 15:45 | P.HPIM ---
History of Present Illness Primary Care Physician: Do Arjun Crockett Chief Complaint: Chest congestion History of Present Illness: 88-year-old female with known history of pulmonary emboli, chronic kidney disease stage III, hypertension, anxiety, depression who presented to hospital because of worsening cough, congestion. Patient states that she has been suffering from a head cold for approximately 2 weeks. She went to her prior medical doctor's office 1 week ago when she states that they did not prescribe her any medication at that time. Over the last 2 days she has had worsening chest congestion, cough with green phlegm production. It got significantly worse last night so she came to emergency department for evaluation. Patient did have workup performed which did show some signs of sepsis to include leukocytosis, lactic acidosis, tachycardia. No actual source of infection is been noticed at this time. However likely secondary to upper respiratory infection or possible developing pneumonia. Because of those reasons it was recommended by the ER physician that the patient be admitted for further evaluation and management. Patient indicates that she has had fever, chills. Denies any abdominal pain, nausea, vomiting, chest pain, diarrhea, constipation. Inpatient Certification Inpatient Certification: I certify that the inpatient services were ordered in accordance with Medicare regulations governing the order. This includes certification that hospital inpatient services are reasonable and necessary and in the case of services not specified as inpatient-only under 42 CFR 419.22(n), that they are appropriately provided as inpatient services in accordance to with the 2-midnight benchmark under 43 CFR 412.3(e) Estimated Total Length of Stay (Days): 4 Plans for Post Hospital Care: Home Review of Systems Review of Systems: all other systems reviewed are negative Constitutional: Reports chills and Reports fever(s) Respiratory: Reports chest congestion and Reports cough PMFSH Medical History Medical History Brain cancer (Acute) Pulmonary embolism (Acute) CKD (chronic kidney disease), stage III (Acute) Carpal tunnel syndrome of right wrist (Acute) Cataract (Acute) History of trigger finger (Acute) Hx of fracture of left hip (Acute) Surgical History Surgical History History of suburethral sling procedure (Acute) S/P carotid endarterectomy (Acute) History of colon surgery (Acute) History of colonoscopy (Acute) History of hemorrhoidectomy (Acute) History of lumpectomy (Acute) History of partial colectomy (Acute) History of partial mastectomy of left breast (Acute) History of right-sided carotid endarterectomy (Acute) Social History Social History Substance History: No History of Abuse Second Hand Smoke Exposure: No Smoking Status: Former smoker Tobacco Type: Cigarettes Smoking End Date: Patient quit smoking 40 years ago How Often Do You Have a Drink Containing Alcohol: Never Recent Travel in [facility] within the Last 8 Weeks: No Recent Out of Country Travel within the Last 8 Weeks: No Immunization History Tetanus Immunization: <5 Years Tetanus Immunization Year if Known: 2017 Hx Influenza Vaccine This Season: Yes Medications and Allergies Allergies Allergy/AdvReac Type Severity Reaction Status Date / Time alendronate sodium Allergy Severe Muscle Pain Verified 07/13/18 02:27 lidocaine Allergy Severe Hives Verified 07/13/18 02:27 anastrozole AdvReac Severe Nausea/Vomi Verified 07/13/18 02:27 ting alprazolam AdvReac Mild MOOD EFFECT Verified 07/13/18 02:27 brompheniramine AdvReac Mild Nausea Verified 07/13/18 02:27 clonazepam AdvReac Mild MOOD EFFECT Verified 07/13/18 02:27 clorazepate dipotassium AdvReac Mild MOOD EFFECT Verified 07/13/18 02:27 diazepam AdvReac Mild MOOD EFFECT Verified 07/13/18 02:27 lorazepam AdvReac Mild MOOD EFFECT Verified 07/13/18 02:27 midazolam AdvReac Mild MOOD EFFECT Verified 07/13/18 02:27 oxazepam AdvReac Mild MOOD EFFECT Verified 07/13/18 02:27 temazepam AdvReac Mild MOOD EFFECT Verified 07/13/18 02:27 Home Medications Medication Instructions Recorded Confirmed Type calcium carbonate-vitamin D3 1 tab PO BID 02/12/18 07/13/18 History [Calcium 600 + D(3)] enalapril maleate 10 mg PO DAILY 02/12/18 07/13/18 History okowxamy-ksk-FJ-lycopen-lutein 1 tab PO DAILY 02/12/18 07/13/18 History [Centrum Silver] omeprazole 40 mg PO DAILY 02/12/18 07/13/18 History potassium chloride 10 meq PO DAILY 02/12/18 07/13/18 History psyllium seed (sugar) [Metamucil 1 tbsp PO DIRECTED 02/12/18 07/13/18 History (sugar)] furosemide 40 mg PO DAILY 04/06/18 07/13/18 History sertraline 25 mg PO DAILY 04/06/18 07/13/18 History acetaminophen [Mapap 650 mg PO Q6H PRN 07/13/18 07/13/18 History (acetaminophen)] Active Medications: Active Medications Acetaminophen (Tylenol) 650 mg PO Q4H PRN PRN Reason: Temp > 100.4 Enoxaparin Sodium (Lovenox Inj) 40 mg SQ Q24H [facility] Last Admin: 07/13/18 05:59 Dose: 40 mg Azithromycin 250 mg/ Sodium (Chloride) 250 mls @ 250 mls/hr IV.SIG Q24H CARIDAD Ceftriaxone Sodium 1,000 mg/ (Sodium Chloride) 100 mls @ 200 mls/hr IV.SIG Q12H [facility] Last Admin: 07/13/18 15:16 Dose: 200 mls/hr Ondansetron HCl (Zofran Inj) 4 mg IV.PUSH Q6H PRN PRN Reason: NAUSEA OR VOMITING Last Admin: 07/13/18 15:16 Dose: 4 mg Senna/Docusate Sodium (Gala-Colace) 1 tab PO BID [facility] Last Admin: 07/13/18 10:58 Dose: Not Given Sodium Chloride (Ns Flush) 2 ml IV.FLUSH BID [facility] Last Admin: 07/13/18 10:59 Dose: 2 ml Sodium Chloride (Ns Flush) 2 ml IV.FLUSH PRN PRN PRN Reason: FLUSH AFTER USING IV ACCESS Last Admin: 07/13/18 15:16 Dose: 2 ml Physical Exam Vital signs: Last Vital Signs Temp 98.6 F 07/13/18 12:00 Pulse 81 07/13/18 12:00 Resp 21 07/13/18 12:00 BP 145/64 H 07/13/18 12:00 Pulse Ox 95 07/13/18 12:00 Intake & Output 07/11/18 07/12/18 07/13/18 07/14/18 06:59 06:59 06:59 06:59 Intake Total 1100 / 1100 480 / 480 Output Total 400 / 400 Balance 1100 / 1100 80 / 80 Weight 75.3 kg 76.2 kg Narrative: GENERAL: Well-developed, well-nourished, in no acute distress. alert and orientated HEENT: Head is normocephalic without any lesions or masses noted. Facial features are symmetric. Eyes: Pupils equal round reactive to light. Extraocular muscles are intact. Conjunctivae were clear. Oropharyngeal: Pharynx without any erythema edema. Tongue is midline without deviation. Buccal mucosa is moist without any masses or lesions NECK: Supple without any masses. Trachea midline no deviation. No JVD, no bruits are appreciated CARDIAC: Regular rhythm, regular rate. S1/S2 are heard. 2/6 ejection murmur, no gallops or rubs. LUNGS: Rhonchi heard in upper lung roper, no wheeze or rales. No use of accessory muscles on inspiration or expiration. ABDOMEN: Soft, nontender. Nondistended. Bowel sounds heard in all 4 quadrants. No organomegaly or masses. Negative rebound, negative guarding EXTREMITIES: No edema, pulses are equal bilaterally. No cyanosis or clubbing NEUROLOGY: Mood and affect appear appropriate. Cranial nerves II through XII grossly intact. Muscle strength 5/5 in upper and lower extremities bilaterally. Deep tendon reflexes are 2+ in upper and lower extremities bilaterally. Results Labs CBC & Chem 7: 07/14/18 05:40 07/14/18 05:40 Imaging Impressions Chest X-Ray 07/13/18 02:44 CONCLUSION: No acute cardiopulmonary process. Caprini VTE Risk Assessment Caprini VTE Risk Assessment: Moderate/High Risk (score >= 2) Caprini Risk Assessment Model: Point Value = 1 Point Value = 2 Point Value = 3 Point Value = 5 Age 41-60 Minor surgery BMI > 25 kg/m2 Swollen legs Varicose veins or History of unexplained or recurrent spontaneous Oral contraceptives or hormone replacement Sepsis (< 1 month) Serious lung disease, including pneumonia (< 1 month) Abnormal pulmonary function Acute myocardial infarction Congestive heart failure (< 1 month) History of inflammatory bowel disease Medical patient at bed rest Age 61-74 Arthroscopic surgery Major open surgery (> 45 min) Laparoscopic surgery (> 45 min) Malignancy Confined to bed (> 72 hours) Immobilizing plaster cast Central venous access Age >= 75 History of VTE Family history of VTE Factor V Leiden Prothrombin [id number] Lupus anticoagulant Anticardiolipin antibodies Elevated serum homocysteine Heparin-induced thrombocytopenia Other congenital or acquired thrombophilia Stroke (< 1 month) Elective arthroplasty Hip, pelvis, or leg fracture Acute spinal cord injury (< 1 month) Prophylaxis Regimen: Total Risk Factor Score Risk Level Prophylaxis Regimen 0-1 Low Early ambulation 2 Moderate Order ONE of the following: *Sequential Compression Device (SCD) *Heparin 5000 units SQ BID 3-4 Higher Order ONE of the following medications: *Heparin 5000 units SQ TID *Enoxaparin/Lovenox 40 mg SQ daily (WT < 150 kg, CrCl > 30 mL/min) *Enoxaparin/Lovenox 30 mg SQ daily (WT < 150 kg, CrCl > 10-29 mL/min) *Enoxaparin/Lovenox 30 mg SQ BID (WT < 150 kg, CrCl > 30 mL/min) AND/OR *Sequential Compression Device (SCD) 5 or more Highest Order ONE of the following medications: *Heparin 5000 units SQ TID (Preferred with Epidurals) *Enoxaparin/Lovenox 40 mg SQ daily (WT < 150 kg, CrCl > 30 mL/min) *Enoxaparin/Lovenox 30 mg SQ daily (WT < 150 kg, CrCl > 10-29 mL/min) *Enoxaparin/Lovenox 30 mg SQ BID (WT < 150 kg, CrCl > 30 mL/min) AND *Sequential Compression Device (SCD) Assessment and Plan Plan Sepsis Patient met criteria on admission with leukocytosis, tachycardia, mildly elevated lactic acid level, upper respiratory infection possible early pneumonia Influenza testing was negative, Blood cultures are pending Urinalysis less than 5 WBCs and only few bacteria. Continue to follow culture Patient started on empirical antibiotics for community acquired pneumonia to include Rocephin, Zithromax Continue IV fluids Acute renal failure superimposed on chronic kidney disease stage III Continue IV fluids Monitor renal function Avoid nephrotoxins History of pulmonary emboli Continue Eliquis DVT prevention Patient is on Eliquis H&P: Quality VTE Deep Vein Thrombosis/Pulmonary Embolism Present on Admission: No
[2018-07-13] MEDS ORDERED: Sod Chloride 0.9% Inj 1,000 ML IV.CONT SCH (16:00)
[2018-07-13] MEDS: guaiFENesin 600 MG ER Tablet PO SCH (21:02)
[2018-07-13] MEDS: Amitriptyline 10 MG Tablet PO SCH (21:03)
[2018-07-14] MEDS: Azithromycin Inj 250 MG in Sodium Chlor 0.9% Inj 250 ML IV.SIG SCH (05:27)
[2018-07-14 06:24] LABS: Potassium 3.4 meq/L (3.5-5.1)
[2018-07-14 06:48] LABS: Baso % (Auto) 0.2 % (0.0-2.0); Eos % (Auto) 0.4 % (0.0-4.0); Hematocrit 33.6 % (35.0-46.0); Hemoglobin 10.9 gm/dL (11.6-15.3); Lymph # (Auto) 1.3 th/mm3 (1.0-4.8); Lymph % (Auto) 13.8 % (9.0-44.0); Mean Corpuscular HGB Conc 32.3 % (32.0-36.0); Mean Corpuscular Hemoglobin 26.7 pg (27.0-34.0); Mean Corpuscular Volume 82.6 fL (80.0-100.0); Mean Platelet Volume 9.4 fL (7.0-11.0); Mono % (Auto) 10.3 % (0.0-8.0); Neut # (Auto) 7.3 th/mm3 (1.8-7.7); Neut % (Auto) 75.3 % (16.0-70.0); Platelet Count 208 th/mm3 (150-450); Red Blood Count 4.07 mil/mm3 (4.00-5.30); Red Cell Distribution Width 16.2 % (11.6-17.2); White Blood Count 9.6 th/mm3 (4.0-11.0)
[2018-07-14 06:52] LABS: Calcium 8.1 mg/dL (8.5-10.1); Carbon Dioxide 27.9 meq/L (21.0-32.0)
[2018-07-14] MEDS: Sertraline 50 MG Tablet PO SCH (09:00)
[2018-07-14] MEDS: guaiFENesin 600 MG ER Tablet PO SCH ×2 (09:01→21:46)
[2018-07-14] MEDS: Senna/Docusate Sodium 8.6/50 MG Tablet PO SCH ×2 (09:01→21:45)
--- NOTE | 2018-07-14 11:57 | P.PNIM ---
Subjective Interval history: 88-year-old female who is seen examined today for follow-up on sepsis, possible early pneumonia. Patient indicates that she is feeling better today, however she is still having significant amount of cough with phlegm production. Vital signs are stable. Patient remains afebrile Physical Exam Vital signs: Last Vital Signs Temp 98.1 F 07/14/18 08:00 Pulse 92 H 07/14/18 08:00 Resp 22 07/14/18 08:00 BP 131/59 L 07/14/18 08:00 Pulse Ox 92 L 07/14/18 08:00 Intake & Output 07/12/18 07/13/18 07/14/18 07/15/18 06:59 06:59 06:59 06:59 Intake Total 1100 / 1100 1020 / 1020 1350 / 1350 Output Total 400 / 400 Balance 1100 / 1100 620 / 620 1350 / 1350 Weight 75.3 kg 77.2 kg Narrative: GENERAL: Well-developed, well-nourished, in no acute distress. alert and orientated HEENT: Head is normocephalic without any lesions or masses noted. Facial features are symmetric. Eyes: Extraocular muscles are intact. Conjunctivae were clear. NECK: Supple without any masses. Trachea midline no deviation. No JVD, CARDIAC: Regular rhythm, regular rate. S1/S2 are heard. 2/6 ejection murmur, no gallops or rubs. LUNGS: Rhonchi heard in upper lung roper, no wheeze or rales. No use of accessory muscles on inspiration or expiration. ABDOMEN: Soft, nontender. Nondistended. Bowel sounds heard in all 4 quadrants. No organomegaly or masses. Negative rebound, negative guarding EXTREMITIES: No edema, pulses are equal bilaterally. No cyanosis or clubbing NEUROLOGY: Mood and affect appear appropriate. Cranial nerves II through XII grossly intact. Moving all extremities, speech is clear Results Labs CBC & Chem 7: 07/14/18 05:40 07/14/18 05:40 Labs: Microbiology 07/13/18 03:30 Catheterized Urine Urine Culture - Preliminary No growth in 24 hours 07/13/18 02:45 Blood - Peripheral Aerobic Blood Culture - Preliminary No growth in 1 day 07/13/18 02:45 Blood - Peripheral Anaerobic Blood Culture - Preliminary No growth in 1 day 07/13/18 02:15 Blood - Peripheral Aerobic Blood Culture - Preliminary No growth in 1 day 07/13/18 02:15 Blood - Peripheral Anaerobic Blood Culture - Preliminary No growth in 1 day 07/13/18 05:00 Sputum - Expectorated Sputum Gram Stain - Final 07/13/18 02:45 Nasal Wash Influenza Types A,B Antigen - Final Negative for FLU A and B antigen Infection due to influenza A or B cannot be ruled out since the antigen present in the sample may be below the detection limit of the test. Assessment and Plan Plan Sepsis, resolved Patient met criteria on admission with leukocytosis, tachycardia, mildly elevated lactic acid level, upper respiratory infection possible early pneumonia Influenza testing was negative, Blood cultures are negative for 1 day Urinalysis less than 5 WBCs and only few bacteria. Culture showing no growth Sputum culture showing light growth of mixed jose no predominant morphology Continue empirical antibiotics for community acquired pneumonia to include Rocephin, Zithromax Continue IV fluids Acute renal failure superimposed on chronic kidney disease stage III, resolved Continue IV fluids Monitor renal function Avoid nephrotoxins History of pulmonary emboli Continue Eliquis DVT prevention Patient is on Eliquis Discharge Planning: Discharge disposition, patient actually improving quite nicely. Physical therapy evaluated the patient and indicating home with possible home health care. Anticipate discharge within the next 24 hours Progress Note: Quality VTE Deep Vein Thrombosis/Pulmonary Embolism Present on Admission: No
[2018-07-14] MEDS: Amitriptyline 10 MG Tablet PO SCH (21:45)
[2018-07-14] MEDS: Acetaminophen 325 MG Tablet PO PRN (21:49)
[2018-07-15] MEDS: Azithromycin Inj 250 MG in Sodium Chlor 0.9% Inj 250 ML IV.SIG SCH (04:30)
--- NOTE | 2018-07-15 08:43 | P.PNIM ---
Subjective Interval history: 88-year-old female who is seen examined today for follow-up on sepsis, upper respiratory infection. Patient did have fever overnight with T-max 101.0. States that she had to change her clothes a couple times because she was sweating. She was hoping that she would feel better but she does not today. Vital signs appear to be stable. Physical Exam Vital signs: Last Vital Signs Temp 101.0 F H 07/14/18 20:00 Pulse 85 07/14/18 20:00 Resp 21 07/14/18 20:00 BP 114/56 L 07/14/18 20:00 Pulse Ox 93 L 07/14/18 20:00 Intake & Output 07/13/18 07/14/18 07/15/18 07/16/18 06:59 06:59 06:59 06:59 Intake Total 1100 / 1100 1020 / 1020 2880 / 2880 Output Total 400 / 400 Balance 1100 / 1100 620 / 620 2880 / 2880 Weight 75.3 kg 77.2 kg 76.2 kg Narrative: GENERAL: Well-developed, well-nourished, in no acute distress. alert and orientated HEENT: Head is normocephalic without any lesions or masses noted. Facial features are symmetric. Eyes: Extraocular muscles are intact. Conjunctivae were clear. NECK: Supple without any masses. Trachea midline no deviation. No JVD, CARDIAC: Regular rhythm, regular rate. S1/S2 are heard. 2/6 ejection murmur, no gallops or rubs. LUNGS: Rhonchi heard in upper lung roper, no wheeze or rales. No use of accessory muscles on inspiration or expiration. ABDOMEN: Soft, nontender. Nondistended. Bowel sounds heard in all 4 quadrants. No organomegaly or masses. Negative rebound, negative guarding EXTREMITIES: No edema, pulses are equal bilaterally. No cyanosis or clubbing NEUROLOGY: Mood and affect appear appropriate. Cranial nerves II through XII grossly intact. Moving all extremities, speech is clear Results Labs CBC & Chem 7: 07/14/18 05:40 07/14/18 05:40 Labs: Microbiology 07/13/18 05:00 Sputum - Expectorated Sputum Gram Stain - Final 07/13/18 05:00 Sputum - Expectorated Sputum Sputum Culture - Preliminary Heavy growth normal respiratory jose at 24 hours 07/13/18 03:30 Catheterized Urine Urine Culture - Preliminary No growth in 24 hours 07/13/18 02:45 Blood - Peripheral Aerobic Blood Culture - Preliminary No growth in 1 day 07/13/18 02:45 Blood - Peripheral Anaerobic Blood Culture - Preliminary No growth in 1 day 07/13/18 02:15 Blood - Peripheral Aerobic Blood Culture - Preliminary No growth in 1 day 07/13/18 02:15 Blood - Peripheral Anaerobic Blood Culture - Preliminary No growth in 1 day Assessment and Plan Plan Sepsis, resolved Patient met criteria on admission with leukocytosis, tachycardia, mildly elevated lactic acid level, upper respiratory infection possible early pneumonia Influenza testing was negative, Blood cultures are negative for 1 day Urinalysis less than 5 WBCs and only few bacteria. Culture continues to show no growth Sputum culture showing heavy growth of normal jose Continue empirical antibiotics for community acquired pneumonia to include Rocephin, Zithromax Continue IV fluids Acute renal failure superimposed on chronic kidney disease stage III, resolved Continue IV fluids Monitor renal function Avoid nephrotoxins History of pulmonary emboli Continue Eliquis DVT prevention Patient is on Eliquis Discharge Planning: Discharge disposition, patient actually improving quite nicely. Physical therapy evaluated the patient and indicating home with possible home health care. Anticipate discharge within the next 24 hours Progress Note: Quality VTE Deep Vein Thrombosis/Pulmonary Embolism Present on Admission: No
[2018-07-15] MEDS: Senna/Docusate Sodium 8.6/50 MG Tablet PO SCH ×2 (09:43→21:13)
[2018-07-15] MEDS: guaiFENesin 600 MG ER Tablet PO SCH ×2 (09:43→21:13)
[2018-07-15] MEDS: Sertraline 50 MG Tablet PO SCH (09:44)
[2018-07-15] MEDS: Acetaminophen 325 MG Tablet PO PRN (14:41)
[2018-07-15] MEDS: Amitriptyline 10 MG Tablet PO SCH (21:14)
[2018-07-16] MEDS: Azithromycin Inj 250 MG in Sodium Chlor 0.9% Inj 250 ML IV.SIG SCH (05:27)
[2018-07-16 08:29] VITALS: O2SAT 92
[2018-07-16] MEDS: guaiFENesin 600 MG ER Tablet PO SCH (09:26)
[2018-07-16] MEDS: Sertraline 50 MG Tablet PO SCH (09:26)
[2018-07-16] MEDS: Senna/Docusate Sodium 8.6/50 MG Tablet PO SCH (09:27)
--- NOTE | 2018-07-16 10:08 | P.DCO ---
Physical Therapy Order: Evaluate and treat, Improve ambulation and Strength and gait training Home Health Nursing Order: Medical education, Signs/symptoms of disease process and Nursing assessment with vital signs Case Management Consult Case Management Consult-Home Health: Yes I have seen patient Makenzie Li on 07/16/18. My clinical findings support the need for the requested home health care services because: Patient has SOB and Limited ability to care for self I certify that my clinical findings support that this patient is homebound because: Unsteady gait/balance and Unsafe to leave home unassisted
--- NOTE | 2018-07-16 11:09 | P.DS ---
DS: Providers Date of admission: 07/13/18 04:52 Primary care physician: Do Arjun Crockett Consults: 07/15/18 10:22 HUB Only Consult Order Routine Consulting Provider: Tom Santos Anticipated date of discharge: 07/16/18 Brief History from admission: 88-year-old female with known history of pulmonary emboli, chronic kidney disease stage III, hypertension, anxiety, depression who presented to hospital because of worsening cough, congestion. Patient states that she has been suffering from a head cold for approximately 2 weeks. She went to her prior medical doctor's office 1 week ago when she states that they did not prescribe her any medication at that time. Over the last 2 days she has had worsening chest congestion, cough with green phlegm production. It got significantly worse last night so she came to emergency department for evaluation. Patient did have workup performed which did show some signs of sepsis to include leukocytosis, lactic acidosis, tachycardia. No actual source of infection is been noticed at this time. However likely secondary to upper respiratory infection or possible developing pneumonia. Because of those reasons it was recommended by the ER physician that the patient be admitted for further evaluation and management. Patient indicates that she has had fever, chills. Denies any abdominal pain, nausea, vomiting, chest pain, diarrhea, constipation. DS: Diagnosis Discharge Diagnosis (1) Hypoxia: Status: Acute (2) Sepsis: Status: Acute (3) Leukocytosis: Status: Acute (4) Community acquired pneumonia: Status: Acute DS: Summary 88-year-old female with known history of pulmonary emboli, chronic kidney disease, hypertension, anxiety, depression who presented to hospital because of worsening upper respiratory symptoms with cough, congestion, phlegm production. Patient had workup done in emergency department and found to have septic criteria secondary to leukocytosis, lactic acidosis, tachycardia, upper respiratory infection. Patient was admitted to hospital with treatment for community acquired pneumonia with Rocephin/Zithromax for antibiotics, nebulizer treatments every 6 hours while awake and every 2 hours as needed, Mucinex. Further workup with blood cultures were negative for 3 days, influenza testing was negative, urine culture was no growth for 48 hours, sputum culture showed heavy growth normal jose. Patient does have history of tobacco use, possible upper respiratory infection with combination of chronic objective pulmonary disease. Patient will need outpatient follow-up for pulmonary function study when she is in a clinically stable state. Patient did have episodes of elevated temperature with T-max 101.0. Patient has been afebrile for over 24 hours. Patient did require oxygen during her stay in the hospital. Home oxygen walk study was performed which did indicate need for oxygen. Patient was instructed to perform incentive spirometry during her stay in the hospital as well as when she gets home. Patient is not taking deep breaths that well. She has been laying in bed majority of the time likely with developing atelectasis. Emphasized the need for incentive spirometry. Case management consulted to help arrange home health care, home oxygen. Patient is clinically stable at this time. Will anticipate discharge home once home health care and oxygen have been arranged. Time Spent with Patient Total time spent providing and/or coordinating discharge services: Greater than 30 minutes Quality: VTE Deep Vein Thrombosis/Pulmonary Embolism Present on Admission: No Exam Narrative Exam Narrative: GENERAL: Well-developed, well-nourished, in no acute distress. alert and orientated HEENT: Head is normocephalic without any lesions or masses noted. Facial features are symmetric. Eyes: Extraocular muscles are intact. Conjunctivae were clear. NECK: Supple without any masses. Trachea midline no deviation. No JVD, CARDIAC: Regular rhythm, regular rate. S1/S2 are heard. 2/6 ejection murmur, no gallops or rubs. LUNGS: Rhonchi heard in upper lung roper, no wheeze or rales. No use of accessory muscles on inspiration or expiration. ABDOMEN: Soft, nontender. Nondistended. Bowel sounds heard in all 4 quadrants. No organomegaly or masses. Negative rebound, negative guarding EXTREMITIES: No edema, pulses are equal bilaterally. No cyanosis or clubbing NEUROLOGY: Mood and affect appear appropriate. Cranial nerves II through XII grossly intact. Moving all extremities, speech is clear Results Labs on day of discharge: Preliminary micro results at discharge 07/13/18 02:45 Aerobic Blood Culture - Preliminary Blood - Peripheral No growth in 3 days Anaerobic Blood Culture - Preliminary No growth in 3 days 07/13/18 02:15 Aerobic Blood Culture - Preliminary Blood - Peripheral No growth in 3 days Anaerobic Blood Culture - Preliminary No growth in 3 days Impressions ITS Impressions Chest X-Ray 07/13/18 02:44 CONCLUSION: No acute cardiopulmonary process. Discharge Plan Discharge Disposition Patient Disposition: Disch W/Home Health Service Discharge Condition Condition: Stable Discharge Order Discharge Orders: Discharge Order (Routine); Ordered 07/16/18 Ordered By: Mehrdad Carver Discharge Details Anticipated Discharge Date: 07/16/18 Discharge Comment: Okay to discharge home once home health care and home oxygen has been arranged Physicians Team Primary Care Provider: Do Arjun Crockett Attending Provider: Chandni Flower Other Providers: Tom Santos Rxs /Orders / Referrals /Forms Prescriptions: New ipratropium-albuterol 0.5 mg-3 mg(2.5 mg base)/3 mL Solution For Nebulization 1 amp NEB Q6HR WHILE AWAKE NEB Qty: 1 RF: 0 guaifenesin [Mucinex] 600 mg Tablet Extended Release 12hr 600 mg PO BID Qty: 14 RF: 0 cefuroxime axetil 500 mg tablet 500 mg PO BID 7 Days Qty: 14 RF: 0 azithromycin 500 mg tablet 500 mg PO DAILY 7 Days Qty: 7 RF: 0 Continue furosemide 40 mg Tablet 40 mg PO DAILY RF: 0 sertraline 25 mg Tablet 25 mg PO DAILY RF: 0 bethanechol chloride [Urecholine] 25 mg Tablet 25 mg PO QID RF: 0 amitriptyline 10 mg Tablet 10 mg PO HS RF: 0 apixaban [Eliquis] 5 mg Tablet 5 mg PO BID RF: 0 enalapril maleate 10 mg Tablet 10 mg PO DAILY RF: 0 potassium chloride 10 mEq Tablet Extended Release 10 meq PO DAILY RF: 0 omeprazole 40 mg Capsule,Delayed Release(Dr/Ec) 40 mg PO DAILY RF: 0 psyllium seed (sugar) [Metamucil (sugar)] Powder 1 tbsp PO DIRECTED RF: 0 svevtlcc-esi-LV-lycopen-lutein [Centrum Silver] 0.4-300-250 mg-mcg-mcg Tablet 1 tab PO DAILY RF: 0 calcium carbonate-vitamin D3 [Calcium 600 + D(3)] 600 mg(1,500mg) -400 unit Tablet 1 tab PO BID RF: 0 acetaminophen [Mapap (acetaminophen)] 325 mg Tablet 650 mg PO Q6H PRN (Reason: Acute Pain) RF: 0 Ambulatory Orders / Order Sets / DME: Oxygen Tank (2 liter) (Routine) Location: Determined by Patient Ordered By: Mehrdad Carver Referrals: Do Arjun Crockett MD [Primary Care Provider] - See Instructions Discharge Interventions Interventions: Discharge Planning - Case Management Last Done: 07/14/18 10:03 Status ED Status: Left Department
[2018-07-16 13:11] VITALS: BP 127/65; TEMP 98.9
[2018-07-16 13:45] VITALS: PULSE 88; RESP 18
[2018-07-17] MEDS ORDERED: Azithromycin Inj 250 MG in Sodium Chlor 0.9% Inj 250 ML IV.SIG SCH (05:00)
== END 2018-07-16 16:56 | disposition home health service (06) | DRG 871 ==
LOC: PHED 01:14 → PHEDA 04:52 → PH3 08:42
PROVIDERS: ADMIT Internal Medicine; ATTEND Internal Medicine
DX: Z85.841 Personal history of malignant neoplasm of brain; F32.9 Major depressive disorder, single episode, unspecified; J98.11 Atelectasis; R00.0 Tachycardia, unspecified; I12.9 Hypertensive chronic kidney disease with stage 1 through stage 4 chronic kidney disease, or unspecified chronic kidney disease; E87.2 Acidosis; J18.9 Pneumonia, unspecified organism; Z86.711 Personal history of pulmonary embolism; J44.9 Chronic obstructive pulmonary disease, unspecified; Z79.01 Long term (current) use of anticoagulants; N17.9 Acute kidney failure, unspecified; F41.9 Anxiety disorder, unspecified; J06.9 Acute upper respiratory infection, unspecified; Z85.3 Personal history of malignant neoplasm of breast; Z87.891 Personal history of nicotine dependence; A41.9 Sepsis, unspecified organism; R09.02 Hypoxemia; N18.3 Chronic kidney disease, stage 3 (moderate)
CPT/HCPCS: 71010; 71045; 80048; 80053; 81001; 83605; 85025; 87040; 87070; 87086; 87205; 87275; 87276; 87804; 90765; 92526; 92610; 93005; 94618; 94620; 94640; 94664; 94665; 96365; 97110; 97116; 97162; 99285; G0195; J0456; J0696; J1650; J2405; J7030; J7040; J7050; P9612